=== PATIENT | female | born 1970 | race Caucasian/White ===

== ENCOUNTER 2018-06-16 16:36 | Emergency (ER) | payer BC, SELFPAY ==
[2018-06-16 16:48] VITALS: BP 146/87; PULSE 87; RESP 14; TEMP 36.8; O2SAT 100; BMI 22.0
--- NOTE | 2018-06-16 16:53 | DI.RAD.S_ITS ---
PROCEDURE: XR CHEST 2V INDICATIONS: palpitations TECHNIQUE: 2 views of the chest were acquired. COMPARISON: [facility], , CHEST 2 VIEW, 07/10/2014, 13:36. FINDINGS: Surgical changes and devices: None. Lungs and pleura: No pleural effusions or pneumothorax. Lungs are clear. Mediastinum: Mediastinal contours are normal. Heart size is normal. Bones and chest wall: No suspicious bony abnormalities. Soft tissues appear unremarkable. IMPRESSION: No acute cardiopulmonary findings. Dictated by: Tamiko Etienne M.D. on 06/16/2018 at 17:17 Approved by: Tamiko Etienne M.D. on 06/16/2018 at 17:17
[2018-06-16 17:18] LABS: INR 1.1 (0.9-1.3); Prothrombin Time 12.7 SECONDS (10.1-12.7)
[2018-06-16 17:19] LABS: Add Manual Diff / Slide Review NO; Basophils Percent Auto 0.9 % (0-2); Hematocrit 40.3 % (36-46); Hemoglobin 13.2 g/dL (12.0-16.0); Lymphocytes Percent Auto 23.4 % (25-40); Mean Corpuscular HGB Conc 32.7 % (30-36); Mean Corpuscular Volume 88.6 fL (80-100); Monocytes Percent Auto 7.3 % (3-14); Neutrophils Absolute Auto 5100 /uL (1500-7000); Neutrophils Percent Auto 65.4 % (50-75); Platelet Count 245 X10^3/uL (150-400); Red Blood Cell Count 4.55 X10^6/uL (4.0-5.2); Red Cell Distribution Width 14.3 % (11.6-14.8); White Blood Cell Count 7.8 X10^3/uL (4.5-11.0)
[2018-06-16 17:24] LABS: Blood Urea Nitrogen 14 mg/dL (7-17); Calcium 9.8 mg/dL (8.4-10.2); Carbon Dioxide 23 mmol/L (22-32); Chloride 107 mmol/L (98-107); Creatine Kinase 50 U/L (30-135); Estimated Glomerular Filt Rate > 60.0 mL/min (>60); Glucose 111 mg/dL (70-100); HEMOLYSIS < 15 (0-50); Potassium 3.6 mmol/L (3.4-5.1); Sodium 141 mmol/L (137-145)
[2018-06-16 17:36] LABS: Troponin I < 0.012 ng/mL (0.01-0.034)
[2018-06-16 18:37] VITALS: BP 117/70; PULSE 70; RESP 14
--- NOTE | 2018-06-16 18:52 | ED_ITS ---
HPI - Arrhythmia/Palpitations General Chief Complaint: Arrhythmia/Palpitations Stated Complaint: states heart palpitations,feels different Time Seen by Provider: 06/16/18 18:32 Source: patient and family Mode of arrival: ambulatory Limitations: no limitations History of Present Illness HPI narrative: Patient states she had an episode of palpitations that lasted for a couple of hours. She states she has had this before, but that this time, she had an episode in the midst of the palpitations where she felt that her heart was pounding and beating too she felt lightheaded. Patient states, however, that when she laid down it made her feel worse, so she stayed up. Patient did not lose consciousness. She was when the episode. Patient states she was waiting for to come when he he brought to the. Patient states that the palpitations stopped when she got to the emergency department. Patient has a history of PV days previously, and has seen her primary care physician for this. She states she was told that if she ever had a feeling of ongoing tachycardia, she should come to the emergency department immediately, and that is why she is here. Patient denies chest pain or shortness of breath at the time. She states she felt slightly nauseated. Patient states she is otherwise healthy; she does not have any thyroid issues, and does not have any known cardiac issues. She did have an episode of chest pain while a bookstore a few weeks ago, which lasted for some minutes, then resolved. This pain was right-sided. Patient has never worn a Holter monitor. She states she has had extended episodes of palpitations before, and has noticed her heart racing before, but these episodes are fairly few and far between, usually happening 6- 12 months apart. Patient states that she happens to have been in a position of leaning over or being ?curled up? when the each of the episodes have happened, but that there are plenty of other times that she is in this position and she does not experience any palpitations. Patient denies any complaints at this time, other than feeling somewhat tired, and states that she is otherwise feeling well. Related Data Home Medications Medication Instructions Recorded Confirmed No Known Home Medications 06/16/18 06/16/18 Allergies Allergy/AdvReac Type Severity Reaction Status Date / Time Penicillins Allergy Intermediate Hives Verified 06/16/18 16:52 Review of Systems Constitutional Denies chills, Denies fever(s), Denies lethargy and Denies weakness Eyes Denies change in vision, Denies eye discharge, Denies irritation and Denies loss of vision ENT Ears, Nose, Mouth, and Throat: Denies change in voice, Reports dizziness, Denies neck pain and Denies sore throat Cardiovascular Denies chest pain, Denies irregular heart rhythm, Denies lightheadedness, Reports palpitations, Denies dyspnea, Denies dyspnea on exertion and Denies orthopnea Respiratory Denies cough, Denies dyspnea, Denies dyspnea on exertion and Denies wheezing Gastrointestinal Gastrointestinal: Denies abdominal pain, Denies change in bowel habits, Denies diarrhea, Denies nausea and Denies vomiting Genitourinary Denies hematuria, Denies flank pain, Denies urinary incontinence and Denies urinary urgency Musculoskeletal Denies neck pain Integumentary/Breasts Denies pruritus, Denies erythema, Denies rash and Denies wounds Neurologic Denies confusion, Reports dizziness, Denies loss of vision and Denies weakness Psychiatric Denies anxiety, Denies confusion, Denies depression, Denies homicidal ideation and Denies suicidal ideation Endocrine Reports palpitations Hematologic/Lymphatic Denies easy bruising Allergic/Immunologic Denies wheezing PFSH Medical History PAC (premature atrial contraction) (Acute) PVC's (premature ventricular contractions) (Acute) Surgical History Status post arthroscopy Status post delivery Status post delivery Status post delivery Status post tubal ligation Family History Father Age: 78 Hypertension Polycystic kidney disease Grandmother Cancer Mother Age: 75 Skin melanoma Stroke Social History Smoking Status: Former smoker Exam Initial Vital Signs Initial Vital Signs: Vital Signs Temperature 98.2 F 06/16/18 16:48 Pulse Rate 87 06/16/18 16:48 Respiratory Rate 14 06/16/18 16:48 Blood Pressure 146/87 H 06/16/18 16:48 Pulse Oximetry 100 06/16/18 16:48 Const General: cooperative and well developed Nutritional Appearance: well nourished Orientation: alert, awake, oriented x3 and not confused HENNJ Head: normocephalic and atraumatic Ears: external ears normal Nose: external nose normal and No nasal discharge Face and sinus: face symmetric and No dry mucous membranes Mouth: oral mucosae normal and moist mucous membranes Teeth and gingiva: dentition normal Eyes General: appearance normal, both eyes and all related structures Eyelids: eyelids normal Conjunctivae: conjunctivae normal Sclera: sclerae normal Pupils: PERRL EOM: EOM intact bilaterally Neck Neck: normal visual inspection, trachea midline, No lymphadenopathy, No midline deformity and No JVD Lymphatic: No lymphedema Chest Chest: normal inspection of the chest Resp Effort & Inspection: normal respiratory effort, able to speak in complete sentences, no respiratory distress and no use of accessory muscles Auscultation: clear to auscultation bilaterally, no rales, no rhonchi and no wheezes Cardio Rate: regular rate Rhythm: regular rhythm Heart Sounds: no click, no gallops, no murmurs and no rubs Pulses: normal peripheral pulses GI Inspection: non-distended Palpation: soft, no hepatosplenomegaly, No guarding, No pulsatile mass and No tender Back/Spine/Pelvis Back: No CVA tenderness Cervical Spine: cervical ROM normal and No pain with cervical ROM Thoracic/Lumbar Spine: thoracic and lumbar spine normal to inspection Skin General: no rashes or lesions noted, No jaundice and No petechiae Neuro General: alert, oriented x3, gait normal and no focal motor deficits Speech: speech normal Extrem General: full ROM, no clubbing, cyanosis or edema, no pedal edema and no calf tenderness Psych Appearance: well kempt Mental Status: mental status grossly normal Attitude: cooperative Thought Content: normal and suicidality Judgment: judgment good Course Course Narrative: Patient was evaluated with an EKG, which was unremarkable, and was kept on the photographic enlarger operator, which showed a normal sinus rhythm with very occasional PVCs. Laboratory studies were also performed, including CMP and CBC, and these were also unremarkable. I discussed with the patient and her at length, the potential causes of the patient's symptoms, as well as when to be concerned and come to back to the emergency department, and patient' s need for follow-up, Holter monitoring, and possibly cardiology consult as an outpatient. They did express understanding. I have advised the patient that if she should have an episode again where she feels lightheaded, or certainly if she should lose consciousness, she should be brought back to the Emergency Department without delay. If she is driving and she has an episode of palpitations/tachycardia where she begins to feel lightheaded or dizzy, I have advised her immediately to sheeting puller and call 911. At this point in time, patient is stable, and has been in a normal sinus rhythm with a normal blood pressure throughout her stay in the emergency department. Given that these episodes are quite infrequent for her, I do not feel that admission to the hospital well be likely to provide any benefit at this time. However, patient begins to have more frequent episodes, she will most definitely need to be monitored either in the inpatient or outpatient setting. Orders Ordered: ED Orders 06/16/18 16:53 XR chest 2V Stat EKG-12 Lead Stat 06/16/18 17:04 Basic Metabolic Panel Stat Complete Blood Count AUTO DIFF Stat Prothrombin Time INR Stat Troponin & CK Cardiac Panel Stat Vital Signs - 8 hr 06/16/18 16:48 06/16/18 18:37 Temperature 98.2 F Pulse Rate 87 70 Respiratory Rate 14 14 Blood Pressure 146/87 H Blood Pressure [Left Arm] 117/70 Pulse Oximetry 100 MDM - Arrhythmia/Palpitations Medical Records Attestation: I reviewed the patient's medical records. Lab Data Attestation: I reviewed the patient's lab results. Result diagrams: 06/16/18 17:04 06/16/18 17:04 Lab Results 06/16/18 06/16/18 06/16/18 Range/Units 17:04 17:04 17:04 WBC 7.8 (4.5-11.0) X10^3/uL RBC 4.55 (4.0-5.2) X10^6/uL Hgb 13.2 (12.0-16.0) g/dL Hct 40.3 (36-46) % MCV 88.6 (80-100) fL MCH 29.0 (26-34) PG MCHC 32.7 (30-36) % RDW 14.3 (11.6-14.8) % Plt Count 245 (150-400) X10^3/uL Neut % (Auto) 65.4 (50-75) % Lymph % (Auto) 23.4 L (25-40) % [place] % (Auto) 7.3 (3-14) % Eos % (Auto) 3.0 (2-4) % Baso % (Auto) 0.9 (0-2) % Neut # (Auto) 5100 (8261-2850) /uL PT 12.7 (10.1-12.7) SECONDS INR 1.1 (0.9-1.3) Sodium 141 (137-145) mmol/L Potassium 3.6 (3.4-5.1) mmol/L Chloride 107 (98-107) mmol/L Carbon Dioxide 23 (22-32) mmol/L BUN 14 (7-17) mg/dL Creatinine 0.70 (0.52-1.04) mg/dL Estimated GFR > 60.0 (>60) mL/min BUN/Creatinine Ratio 20.0 (6-22) Glucose 111 H (70-100) mg/dL Calcium 9.8 (8.4-10.2) mg/dL Total Creatine Kinase 50 (30-135) U/L CK-MB (CK-2) TNP CK-MB (CK-2) Rel Index TNP Troponin I < 0.012 (0.01-0.034) ng/mL TSH (0.47-4.68) uIU/mL 06/16/18 Range/Units Unknown WBC (4.5-11.0) X10^3/uL RBC (4.0-5.2) X10^6/uL Hgb (12.0-16.0) g/dL Hct (36-46) % MCV (80-100) fL MCH (26-34) PG MCHC (30-36) % RDW (11.6-14.8) % Plt Count (150-400) X10^3/uL Neut % (Auto) (50-75) % Lymph % (Auto) (25-40) % [place] % (Auto) (3-14) % Eos % (Auto) (2-4) % Baso % (Auto) (0-2) % Neut # (Auto) (7410-4565) /uL PT (10.1-12.7) SECONDS INR (0.9-1.3) Sodium (137-145) mmol/L Potassium (3.4-5.1) mmol/L Chloride (98-107) mmol/L Carbon Dioxide (22-32) mmol/L BUN (7-17) mg/dL Creatinine (0.52-1.04) mg/dL Estimated GFR (>60) mL/min BUN/Creatinine Ratio (6-22) Glucose (70-100) mg/dL Calcium (8.4-10.2) mg/dL Total Creatine Kinase (30-135) U/L CK-MB (CK-2) CK-MB (CK-2) Rel Index Troponin I (0.01-0.034) ng/mL TSH 1.19 (0.47-4.68) uIU/mL Discharge Plan Departure Patient Disposition: Home Clinical Impression: Palpitations, Cardiac dysrhythmia Discharge Date/Time: 06/16/18 19:40 Interventions: ED Discharge Assessment Last Done: 06/16/18 19:35 Instructions: DI for Arrhythmias, DI for Palpitations Activity Restrictions/Additional Instructions: Your labs look good, as does your EKG. If this happens again and you are feeling lightheaded or you faint, you should come back to the emergency department immediately. If you have the symptoms while driving, please sheeting puller and call 911. Prescriptions: No Action No Known Home Medications RF: 0 Referrals: [facility] [Provider Group] Amanda Jimenez DO [Primary Care Provider] -
[2018-06-16 19:13] LABS: Thyroid Stimulating Hormone 1.19 uIU/mL (0.47-4.68)
[2018-06-16 19:35] VITALS: BP 112/63; PULSE 68; RESP 14; O2SAT 100
[2018-06-16 19:38] VITALS: BP 112/63; PULSE 67; RESP 15; O2SAT 100
== END 2018-06-16 19:40 | disposition home or self-care (01) ==
PROVIDERS: Emergency Medicine; Emergency Provider Emergency Medicine; PCP Family Medicine
DX: R00.2 Palpitations (principal); I49.9 Cardiac arrhythmia, unspecified
CPT/HCPCS: 36415; 71046; 80048; 82550; 84443; 84484; 85025; 85610; 93005; 99282; 99285

== ENCOUNTER → 2019-03-15 09:39 | Outpatient (CLI) | payer BC, SELFPAY ==
[2019-03-15 10:47] LABS: Add Manual Diff / Slide Review NO; Basophils Absolute Auto 100 /uL (0-100); Eosinophils Absolute Auto 300 /uL (0-450); Eosinophils Percent Auto 3.8 % (2-4); Hematocrit 35.9 % (36-46); Hemoglobin 11.6 g/dL (12.0-16.0); Lymphocytes Absolute Auto 1300 /uL (1100-4500); Lymphocytes Percent Auto 19.9 % (25-40); Mean Corpuscular HGB Conc 32.3 % (30-36); Mean Corpuscular Hemoglobin 27.1 PG (26-34); Mean Corpuscular Volume 83.9 fL (80-100); Monocytes Absolute Auto 500 /uL (0-900); Monocytes Percent Auto 7.8 % (3-14); Neutrophils Absolute Auto 4500 /uL (1500-7000); Neutrophils Percent Auto 67.5 % (50-75); Platelet Count 266 X10^3/uL (150-400); Red Blood Cell Count 4.28 X10^6/uL (4.0-5.2); Red Cell Distribution Width 14.8 % (11.6-14.8); White Blood Cell Count 6.7 X10^3/uL (4.5-11.0)
[2019-03-15 11:14] LABS: HEMOLYSIS < 15 (0-50); Iron 68 ug/dL (37-170)
[2019-03-15 11:20] LABS: Alanine Aminotransferase 16 IU/L (9-52); Albumin 4.4 g/dL (3.5-5.0); Albumin Globulin Ratio 1.6 (1.0-2.8); Alkaline Phosphatase 51 U/L (38-126); Aspartate Aminotransferase 20 IU/L (14-36); BUN Creatinine Ratio 13.3 (6-22); Bilirubin Total 0.9 mg/dL (0.2-1.3); Blood Urea Nitrogen 8 mg/dL (7-17); Calcium 9.7 mg/dL (8.4-10.2); Carbon Dioxide 25 mmol/L (22-32); Chloride 103 mmol/L (98-107); Cholesterol 147 mg/dL (140-199); Estimated Glomerular Filt Rate > 60.0 mL/min (>60); Globulin 2.8 g/dL (1.7-4.1); Glucose 83 mg/dL (70-100); HDL Cholesterol 64 mg/dL (40-60); HEMOLYSIS < 15 (0-50); LDL Cholesterol Calculated 75 mg/dL (<100); Potassium 4.6 mmol/L (3.4-5.1); Sodium 138 mmol/L (137-145); Total Protein 7.2 g/dL (6.3-8.2); Triglycerides 41 mg/dL (35-150)
[2019-03-15 11:25] LABS: Percent Iron Saturation 18 % (15-50); Total Iron Binding Capacity 388 ug/dL (265-497); Transferrin 312 mg/dL (206-381)
[2019-03-15 11:49] LABS: Ferritin 6.3 ng/mL (6.27-137)
== END ==
PROVIDERS: PCP Family Medicine; Visit Provider Family Medicine
DX: K76.89 Other specified diseases of liver (principal); Z13.1 Encounter for screening for diabetes mellitus; Z13.220 Encounter for screening for lipoid disorders; Z86.2 Personal history of diseases of the blood and blood-forming organs and certain disorders involving the immune mechanism
CPT/HCPCS: 36415; 80053; 80061; 82728; 83540; 83550; 85025

== ENCOUNTER → 2019-03-17 08:25 | Outpatient (CLI) | payer BC, SELFPAY ==
--- NOTE | 2019-03-17 | DI.MG.S_ITS ---
BILATERAL DIGITAL SCREENING MAMMOGRAM 3D/2D WITH CAD: 03/17/2019 CLINICAL: Routine screening. Comparison is made to exams dated: 04/04/2016 mammogram, 11/16/2013 mammogram, and 10/27/2013 mammogram - [facility]. The tissue of both breasts is extremely dense, which lowers the sensitivity of mammography. Current study was also evaluated with a Computer Aided Detection (CAD) system. No significant masses, calcifications, or other findings are seen in either breast. There has been no significant interval change. IMPRESSION: NEGATIVE There is no mammographic evidence of malignancy. A 1 year screening mammogram is recommended. This exam was interpreted at Station ID: [id number]. NOTE: For mammograms, a report in lay terms will be sent to the patient. Approximately 15% of breast malignancies will not be visualized mammographically. In the management of a palpable breast mass, a negative mammogram must not discourage biopsy of a clinically suspicious lesion. Electronically Signed By: Kulwinder garza/karon:03/17/2019 09:30:40 letter sent: Normal Exam ACR BI-RADS Category 1: Negative [id number]
== END ==
PROVIDERS: PCP Family Medicine; Visit Provider Family Medicine
DX: Z12.31 Encounter for screening mammogram for malignant neoplasm of breast (principal)
CPT/HCPCS: 77063; 77067

== ENCOUNTER → 2019-03-17 08:55 | Outpatient (CLI) | payer BC, SELFPAY ==
--- NOTE | 2019-04-08 16:02 | PM.CARDMON.1 ---
Motorcycle Repairer Report Referral & Results Date Patient Seen: 03/17/19 Requesting provider: Amanda Jimenez Indication: PVCs Duration of monitoring (days): 13 Diary information: There were 20 patient diary entries and 33 patient triggered events These events were all associated with sinus rhythm, PVCs, PACs, ventricular tachycardia, supraventricular tachycardia, and ectopic atrial rhythms Data: Minimum heart rate identified was 44 beats per minute at 05:48 on 03/23/2019 Maximum sinus heart rate was 162 beats per minute at 11:57 on 03/27/2019 Maximum overall heart rate was 171 beats per minute at 14:17 on 03/17/2019 during a 4 beat run of SVT Less than 1% of identified beats rather ventricular supraventricular ectopic in origin. 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 Indication for the study was ventricular premature beats, but in reality patient had very rare PVCs and no runs or other significant findings Clinical correlation suggested
== END ==
PROVIDERS: PCP Family Medicine; Visit Provider Family Medicine
DX: I49.3 Ventricular premature depolarization (principal)
CPT/HCPCS: 0296T; 0298T

== ENCOUNTER → 2019-05-26 13:27 | Outpatient (CLI) | payer BC, SELFPAY ==
[2019-05-26 13:43] LABS: Add Manual Diff / Slide Review NO; Basophils Absolute Auto 100 /uL (0-100); Basophils Percent Auto 0.7 % (0-2); Eosinophils Absolute Auto 200 /uL (0-450); Eosinophils Percent Auto 1.9 % (2-4); Hematocrit 37.8 % (36-46); Hemoglobin 12.4 g/dL (12.0-16.0); Lymphocytes Absolute Auto 1600 /uL (1100-4500); Lymphocytes Percent Auto 17.6 % (25-40); Mean Corpuscular HGB Conc 32.8 % (30-36); Mean Corpuscular Hemoglobin 28.9 PG (26-34); Mean Corpuscular Volume 87.9 fL (80-100); Monocytes Absolute Auto 500 /uL (0-900); Monocytes Percent Auto 5.5 % (3-14); Neutrophils Absolute Auto 6600 /uL (1500-7000); Neutrophils Percent Auto 74.3 % (50-75); Platelet Count 242 X10^3/uL (150-400); White Blood Cell Count 8.9 X10^3/uL (4.5-11.0)
[2019-05-26 14:29] LABS: Ferritin 12.2 ng/mL (6.27-137)
[2019-05-26 14:37] LABS: HEMOLYSIS < 15 (0-50); Iron 140 ug/dL (37-170)
[2019-05-26 14:48] LABS: Percent Iron Saturation 45 % (15-50); Total Iron Binding Capacity 313 ug/dL (265-497); Transferrin 251 mg/dL (206-381)
== END ==
PROVIDERS: PCP Family Medicine; Visit Provider Family Medicine
DX: Z86.2 Personal history of diseases of the blood and blood-forming organs and certain disorders involving the immune mechanism (principal)
CPT/HCPCS: 36415; 82728; 83540; 83550; 85025

== ENCOUNTER → 2019-06-21 08:04 | Outpatient (CLI) | payer BC, SELFPAY ==
--- NOTE | 2019-06-21 08:05 | DI.ECHO.S_ITS ---
[facility]---------+ [facility] +---------+ : : [address] : : : : [id number] : : : : Phone: [phone] Echocardiogram Report + + :Name: SAQIB BRAY Study Date: 06/21/2019 Height: 68 in : :[facility] Weight: 150 lb : : Gender: Female BSA: 1.8 m2 : :: 1970 Age: 49 yrs BP: 122/82 mmHg: :Reason For Study: Arrhythmia : :Ordering Physician: Raymond : :Tony Performed By: Jose Antonio Reed : :Referring: RAYMOND MARMOLEJO : + + Interpretation Summary The ejection fraction is estimated to be 60-65%. There is a small pericardial effusion noted. The IVC is dilated (diameter is greater than 2.1 cm) yet it collapses greater than 50% with a sniff. This suggests a right atrial pressure of 8 mm Hg. There is no significant valvular heart disease. Procedure: A two-dimensional transthoracic echocardiogram with color flow and Doppler was performed. The study quality was technically adequate. The apical views were difficult to obtain and are suboptimal in quality. There is no prior echocardiogram noted for this patient. The patient was in normal sinus rhythm during the exam. Left Ventricle: The left ventricle is normal in size. There is normal left ventricular wall thickness. Left ventricular systolic function is normal. The ejection fraction is estimated to be 60-65%. Left ventricular wall motion is normal. Right Ventricle: The right ventricle is normal in size and function. Atria: The left atrial size is normal. Right atrial size is normal. The interatrial septum is intact with no evidence for an atrial septal defect. Mitral Valve: The mitral valve is normal in structure and function. There is trace mitral regurgitation. Aortic Valve: The aortic valve is trileaflet. The aortic valve opens well. No aortic regurgitation is present. Tricuspid Valve: The tricuspid valve is normal in structure and function. There is trace tricuspid regurgitation. Pulmonary artery pressures cannot be estimated because of the lack of a measurable TR jet velocity. Pulmonic Valve: The pulmonic valve is normal in structure and function. There is trace pulmonic regurgitation. Great Vessels: The aortic root is normal size. The ascending aorta could not be visualized. The pulmonary artery is normal size. The IVC is dilated (diameter is greater than 2.1 cm) yet it collapses greater than 50% with a sniff. This suggests a right atrial pressure of 8 mm Hg. Pericardium/ Pleura There is a small pericardial effusion noted. There are no echocardiographic or Doppler indications for cardiac tamponade. There is no pleural effusion. MMode/2D Measurements & Calculations LVIDd: 5.0 cm LVOT diam: 2.1 cm LVIDs: 3.0 cm Ao root diam: 2.9 cm FS: 39.8 % EPSS: 0.30 cm IVSd: 0.76 cm LVPWd: 0.85 cm LV arreguin. diameter/BSA (cm/m^2): 2.8 LV sys. diameter/BSA (cm/m^2): 1.7 TAPSE: 2.0 cm Doppler Measurements & Calculations Ao V2 max: 108.3 cm/sec LVOT Max Memo: 100.4 cm/sec Ao V2 mean: 70.0 cm/sec LV V1 max P.0 mmHg Ao max P.7 mmHg LV V1 VTI: 22.2 cm Ao mean P.4 mmHg SARA(I,D): 3.2 cm2 Ao V2 VTI: 22.9 cm SARA(V,D): 3.1 cm2 sev ratio: 0.97 SARA indexed to BSA (cm^2/m^2): 1.8 MV E max memo: 66.6 cm/sec PA V2 max: 91.9 cm/sec MV A max memo: 53.4 cm/sec PA V2 mean: 62.0 cm/sec MV E/A: 1.2 PA mean P.8 mmHg Med Peak E' Memo: 10.5 cm/sec PA Accel Time: 0.17 sec E/E' med: 6.3 Lat Peak E' Memo: 8.2 cm/sec E/E' lat: 8.1 E/e' average: 7.2 MV dec time: 0.29 sec SV(LVOT): 74.3 ml Reading Physician:04:25 PM
== END ==
PROVIDERS: PCP Family Medicine; Visit Provider Family Medicine
DX: I49.9 Cardiac arrhythmia, unspecified (principal); I49.3 Ventricular premature depolarization; I49.1 Atrial premature depolarization; I31.3 Pericardial effusion (noninflammatory); I47.1 Supraventricular tachycardia
CPT/HCPCS: 93306

== ENCOUNTER → 2019-11-21 15:51 | Outpatient (CLI) | payer BC, SELFPAY ==
[2019-11-21 16:15] LABS: Add Manual Diff / Slide Review NO; Basophils Absolute Auto 100 /uL (0-100); Eosinophils Absolute Auto 200 /uL (0-450); Eosinophils Percent Auto 2.6 % (2-4); Hematocrit 39.5 % (36-46); Hemoglobin 13.6 g/dL (12.0-16.0); Lymphocytes Absolute Auto 2000 /uL (1100-4500); Lymphocytes Percent Auto 28.3 % (25-40); Mean Corpuscular HGB Conc 34.4 % (30-36); Mean Corpuscular Hemoglobin 32.2 PG (26-34); Mean Corpuscular Volume 93.6 fL (80-100); Monocytes Absolute Auto 400 /uL (0-900); Monocytes Percent Auto 5.5 % (3-14); Neutrophils Absolute Auto 4500 /uL (1500-7000); Neutrophils Percent Auto 62.6 % (50-75); Platelet Count 266 X10^3/uL (150-400); Red Blood Cell Count 4.22 X10^6/uL (4.0-5.2); Red Cell Distribution Width 13.3 % (11.6-14.8); White Blood Cell Count 7.2 X10^3/uL (4.5-11.0)
[2019-11-21 17:34] LABS: Ferritin 26 ng/mL (6-137)
== END ==
PROVIDERS: PCP Family Medicine; Referring Provider Family Medicine; Visit Provider Family Medicine
DX: Z86.2 Personal history of diseases of the blood and blood-forming organs and certain disorders involving the immune mechanism (principal); D50.0 Iron deficiency anemia secondary to blood loss (chronic)
CPT/HCPCS: 36415; 82728; 85025

== ENCOUNTER → 2020-02-14 09:43 | Outpatient (CLI) | payer BC, SELFPAY ==
--- NOTE | 2020-02-14 09:44 | DI.CT.S_ITS ---
PROCEDURE: CT ABDOMEN WO/W CON INDICATIONS: liver cysts TECHNIQUE: 4 phase scanning was performed. Non-contrast 5 mm axial sections acquired from the diaphragm to the iliac crests. Following the administration of intravenous contrast, 5 mm thick arterial-phase, portal venous-phase, and 5-minute delayed phase images were acquired through the liver. 5 mm thick coronal and sagittal reformats were performed. For radiation dose reduction, the following was used: automated exposure control, adjustment of mA and/or kV according to patient size. COMPARISON: [facility], CT, ABDOMEN WITHOUT CONTRAST, 09/12/2009, 13:28. [facility], [place], ABDOMEN LIMITED, 04/16/2016, 9:57. FINDINGS: Image quality: Excellent. Lung bases: Lung bases are clear. Heart size is normal. Liver: Liver demonstrates homogeneous parenchymal enhancement. Redemonstration of numerous variably sized nonenhancing intrahepatic lesions without suspicious solid components. These have been relatively stable over the years. No development of internal solid components or other suspicious features. Other solid organs: Gallbladder is unremarkable. Biliary system is non dilated. Pancreas is normal in morphology. Spleen is normal in size and enhancement. No adrenal nodules. Right kidney contains a tiny 1 mm punctate non-obstructing stone. Both kidneys demonstrate normal size and enhancement, without hydronephrosis. No left-sided nephroliths. No perinephric stranding. Nodes and vessels: No retroperitoneal or mesenteric adenopathy by size criteria. Aorta and inferior vena cava are normal in size. Bowel and peritoneum: Unenhanced bowel loops are normal in caliber. No free fluid or air. Bones: No suspicious bony lesions. No vertebral body compression fractures. Miscellaneous: There is a fat-containing umbilical hernia without acute inflammation. IMPRESSION: Numerous hepatic cysts which appear relatively stable over the years without development of any suspicious features. Otherwise, CT abdomen without acute abnormalities. Dictated by: Evens Hodge M.D. on 02/14/2020 at 13:40 Approved by: Evens Hodge M.D. on 02/14/2020 at 13:56
== END ==
PROVIDERS: PCP Family Medicine; Referring Provider Family Medicine; Visit Provider Family Medicine
DX: K76.89 Other specified diseases of liver (principal); K42.9 Umbilical hernia without obstruction or gangrene; Z82.71 Family history of polycystic kidney
CPT/HCPCS: 74170; Q9967

== ENCOUNTER → 2020-04-17 14:32 | Outpatient (CLI) | payer BC, SELFPAY | PROVIDERS: PCP Family Medicine; Visit Provider Registered Nurse | DX: N39.0 Urinary tract infection, site not specified (principal) | CPT/HCPCS: 87086 ==

== ENCOUNTER 2021-04-17 14:04 | Emergency (ER) | payer BC, SELFPAY ==
[2021-04-17] VITALS (23 sets, daily range): BP systolic 100–141; BP diastolic 55–82; PULSE 62–156; RESP 12–24; TEMP 36.7; O2SAT 97–100; BMI 22.8
--- NOTE | 2021-04-17 14:22 | DI.RAD.S_ITS ---
PROCEDURE: XR CHEST 1V INDICATIONS: chest pain TECHNIQUE: One view of the chest was acquired. COMPARISON: [facility], CR, XR CHEST 2V, 06/16/2018, 16:59. FINDINGS: Surgical changes and devices: None. Lungs and pleura: Lungs are clear. No pleural effusions or pneumothorax. Mediastinum: Mediastinal contours appear normal. Heart size is normal. Bones and chest wall: No suspicious bony lesions. Overlying soft tissues appear unremarkable. IMPRESSION: No evidence acute pulmonary process. Dictated by: Jerald Alamo M.D. on 04/17/2021 at 14:52 Approved by: Jerald Alamo M.D. on 04/17/2021 at 14:52
[2021-04-17 14:30] LABS: Add Manual Diff / Slide Review NO; Basophils Absolute Auto 100 /uL (0-100); Basophils Percent Auto 0.8 % (0-2); Eosinophils Absolute Auto 200 /uL (0-450); Eosinophils Percent Auto 1.8 % (2-4); Hematocrit 43.9 % (36-46); Hemoglobin 14.6 g/dL (12.0-16.0); Lymphocytes Absolute Auto 2500 /uL (1100-4500); Lymphocytes Percent Auto 26.6 % (25-40); Mean Corpuscular HGB Conc 33.2 % (30-36); Mean Corpuscular Hemoglobin 30.7 PG (26-34); Mean Corpuscular Volume 92.6 fL (80-100); Monocytes Absolute Auto 700 /uL (0-900); Monocytes Percent Auto 7.6 % (3-14); Neutrophils Absolute Auto 5900 /uL (1500-7000); Neutrophils Percent Auto 63.2 % (50-75); Platelet Count 319 X10^3/uL (150-400); Red Blood Cell Count 4.74 X10^6/uL (4.0-5.2); Red Cell Distribution Width 13.6 % (11.6-14.8); White Blood Cell Count 9.4 X10^3/uL (4.5-11.0)
--- NOTE | 2021-04-17 14:31 | ED_ITS ---
HPI - Arrhythmia/Palpitations General Chief Complaint: Arrhythmia/Palpitations Stated Complaint: funny heartbeat- poss AFIB Time Seen by Provider: 04/17/21 14:15 Source: patient Mode of arrival: Ambulatory Limitations: no limitations History of Present Illness HPI narrative: Patient is a 50-year-old female with history of paroxysmal heart arrhythmia she is unsure what it is but is currently in AFib with RVR. She says her last episode was 3 years ago it has never been caught on the monitor. She has always got herself out of it. This started this morning. She tried coughing bearing down to get herself out of it but it is not working. Heart rate currently in the 150s. Denies chest pain dizziness shortness of breath or other symptoms Related Data Home Medications Medication Instructions Recorded Confirmed ascorbate calcium (vitamin C) 500 500 mg PO DAILY 11/21/19 04/23/20 mg tablet ferrous sulfate 140 mg (45 mg 140 mg PO DAILY 04/17/20 04/23/20 iron) tablet,extended release (Slow Release Iron) Previous Rx's Medication Instructions Recorded triamcinolone acetonide 0.5 % See Rx Instructions .ROUTE 04/07/20 topical cream .COMPLEX #45 gram Allergies Allergy/AdvReac Type Severity Reaction Status Date / Time Penicillins Allergy Intermediate Hives Verified 04/17/21 15:31 Review of Systems Review of Systems Narrative: GENERAL: Denies chills, fatigue, malaise, fever, sweats, travel HEENT: Denies sinus pain, ear pain, sore throat, difficulty swallowing, neck pain RESPIRATORY: Denies dyspnea, cough, wheezing, hemoptysis, sputum. CARDIOVASCULAR: See HPI GASTROINTESTINAL: Denies nausea, vomiting, abdominal pain, diarrhea, constipation, melena. : Denies dysuria, frequency, incontinence, hematuria, urinary retention, flank pain. MUSCULOSKELETAL: Denies weakness, joint pain, or bony pain SKIN: No rash, no erythema, no pruritus NEUROLOGIC: Denies weakness, dizziness, headache, numbness, change in speech, confusion PSYCHIATRIC: No concerning psychosocial issues. 12 point review of systems is negative except for those stated above and HPI Patient History Medical History (Updated 04/17/21 @ 17:12 by Michelle Hawkins DO) PAC (premature atrial contraction) Pericardial effusion PVC's (premature ventricular contractions) Surgical History Status post arthroscopy Status post delivery Status post delivery Status post delivery Status post tubal ligation Family History Father Age: 81 Hypertension Polycystic kidney disease Grandmother Cancer Mother Age: 78 Skin melanoma Stroke Social History Smoking Status: Former smoker Smoking Status: Former smoker alcohol intake frequency: 0-2 drinks per day Substance Use Type: does not use Exam Initial Vital Signs Initial Vital Signs: Vital Signs Temperature 98.1 F 04/17/21 14:20 Pulse Rate 150 H 04/17/21 14:20 Respiratory Rate 16 04/17/21 14:20 Blood Pressure 141/77 H 04/17/21 14:20 Pulse Oximetry 99 04/17/21 14:20 GENERAL: Alert pleasant 50-year-old female HEENT: Head atraumatic,EOMI, pupils reactive, face symmetric, moist mucous membranes CARDIOVASCULAR: Irregularly irregular tachycardic RESPIRATORY: Breath sounds equal bilaterally, no wheezes rales or rhonchi. ABDOMEN: Soft, nontender. Normoactive bowel sounds all 4 quadrants. No guarding or rebound. EXTREMITIES: Normal range of motion, no clubbing or edema. Neurovascularly intact NEUROLOGICAL: Alert and oriented x4.Normal gait and speech. SKIN: Warm, dry, no laceration, no petechiae, no rashes or lesions. Procedures Cardioversion Indication: Atrial fibrillation with RVR Stability: Stable Number of attempts (shocks): 1 Joules used: 120 Cardiac rhythm post-cardioversion: NSR Procedural Sedation Consent signed: Yes Time out performed: Yes Indication: cardioversion ASA Class: I Mallampati Airway Classification: Class I IV Propofol dose (mg): 70 Intraservice time/total sedation time (min): 11 ED Sedation Level: Moderate (Concious) Patient Tolerated Procedure: Well Complications: none Scores CHADS-VASc Congestive heart failure: no Hypertension: no Age 75 years or older: no Diabetes mellitus: no Stroke, TIA, or TE: no Vascular disease: no Age 65 to 74 years: no Sex category (female): Female CHADS-VASc Score: 1 Course Orders Ordered: Discontinued Medications Diltiazem HCl (Diltiazem 5 Mg/Ml Sdv) 10 mg IV NOW ONE Stop: 04/17/21 14:28 Last Admin: 04/17/21 14:33 Dose: 10 mg Documented by: FRANSISCO Propofol (Propofol 200 Mg/20 Ml Vial) 70 mg 1 mg/kg (70 mg) IV NOW ONE Stop: 04/17/21 15:41 Last Admin: 04/17/21 16:13 Dose: 70 mg Documented by: FRANSISCO Vital Signs Vital signs: Vital Signs - 8 hr 04/17/21 14:20 04/17/21 14:33 04/17/21 14:43 Temperature 98.1 F Pulse Rate 150 H 148 H 122 H Respiratory Rate 16 24 Blood Pressure 141/77 H 123/63 Pulse Oximetry 99 100 04/17/21 14:51 04/17/21 15:00 04/17/21 15:01 Temperature Pulse Rate 116 H 131 H 131 H Respiratory Rate 19 14 18 Blood Pressure 110/82 132/68 Pulse Oximetry 99 100 99 04/17/21 15:10 04/17/21 15:21 04/17/21 15:30 Temperature Pulse Rate 139 H 140 H 138 H Respiratory Rate 13 23 13 Blood Pressure 140/59 L 120/71 122/62 Pulse Oximetry 99 98 99 04/17/21 15:41 04/17/21 15:50 04/17/21 16:00 Temperature Pulse Rate 145 H 145 H 156 H Respiratory Rate 18 13 22 Blood Pressure 128/64 110/63 105/68 Pulse Oximetry 99 100 98 04/17/21 16:11 04/17/21 16:13 04/17/21 16:15 Temperature Pulse Rate 147 H 148 H 81 Respiratory Rate 24 21 24 Blood Pressure 126/60 126/63 104/55 L Pulse Oximetry 100 100 97 04/17/21 16:20 04/17/21 16:25 04/17/21 16:30 Temperature Pulse Rate 81 77 73 Respiratory Rate 12 24 24 Blood Pressure 100/57 L 102/58 L 104/62 Pulse Oximetry 98 97 98 04/17/21 16:35 04/17/21 16:39 04/17/21 16:45 Temperature Pulse Rate 80 81 79 Respiratory Rate 19 16 20 Blood Pressure 112/65 121/66 Pulse Oximetry 98 100 MDM - Arrhythmia/Palpitations Lab Data Result diagrams: 04/17/21 14:22 04/17/21 14:22 Labs: Lab Results 04/17/21 04/17/21 04/17/21 Range/Units 14:22 14:22 14:22 WBC 9.4 (4.5-11.0) X10^3/uL RBC 4.74 (4.0-5.2) X10^6/uL Hgb 14.6 (12.0-16.0) g/dL Hct 43.9 (36-46) % MCV 92.6 (80-100) fL MCH 30.7 (26-34) PG MCHC 33.2 (30-36) % RDW 13.6 (11.6-14.8) % Plt Count 319 (150-400) X10^3/uL Neut % (Auto) 63.2 (50-75) % Lymph % (Auto) 26.6 (25-40) % [place] % (Auto) 7.6 (3-14) % Eos % (Auto) 1.8 L (2-4) % Baso % (Auto) 0.8 (0-2) % Neut # (Auto) 5900 (6373-1856) /uL Lymph # (Auto) 2500 (4070-3983) /uL [place] # (Auto) 700 (0-900) /uL Eos # (Auto) 200 (0-450) /uL Baso # (Auto) 100 (0-100) /uL Sodium 142 (137-145) mmol/L Potassium 3.2 L (3.4-5.1) mmol/L Chloride 102 (98-107) mmol/L Carbon Dioxide 29 (22-32) mmol/L BUN 13 (7-17) mg/dL Creatinine 0.71 (0.52-1.04) mg/dL Estimated GFR > 60.0 (>60) mL/min BUN/Creatinine Ratio 18.3 (6-22) Glucose 91 (70-100) mg/dL Calcium 9.9 (8.4-10.2) mg/dL Total Bilirubin 0.5 (0.2-1.3) mg/dL AST 30 (14-36) IU/L ALT 19 (<35) IU/L Alkaline Phosphatase 71 (38-126) U/L Total Creatine Kinase 59 (30-135) U/L CK-MB (CK-2) TNP CK-MB (CK-2) Rel Index TNP Troponin I < 0.012 (0.01-0.034) ng/mL NT-Pro-B Natriuret Pep 130 H (<125) pg/mL Total Protein 8.1 (6.3-8.2) g/dL Albumin 5.0 (3.5-5.0) g/dL Globulin 3.1 (1.7-4.1) g/dL Albumin/Globulin Ratio 1.6 (1.0-2.8) Lipase 143 (23-300) U/L TSH (0.47-4.68) uIU/mL SARS-CoV-2 (PCR) (Negative) 04/17/21 04/17/21 Range/Units 14:22 15:16 WBC (4.5-11.0) X10^3/uL RBC (4.0-5.2) X10^6/uL Hgb (12.0-16.0) g/dL Hct (36-46) % MCV (80-100) fL MCH (26-34) PG MCHC (30-36) % RDW (11.6-14.8) % Plt Count (150-400) X10^3/uL Neut % (Auto) (50-75) % Lymph % (Auto) (25-40) % [place] % (Auto) (3-14) % Eos % (Auto) (2-4) % Baso % (Auto) (0-2) % Neut # (Auto) (4728-9361) /uL Lymph # (Auto) (3211-5089) /uL [place] # (Auto) (0-900) /uL Eos # (Auto) (0-450) /uL Baso # (Auto) (0-100) /uL Sodium (137-145) mmol/L Potassium (3.4-5.1) mmol/L Chloride (98-107) mmol/L Carbon Dioxide (22-32) mmol/L BUN (7-17) mg/dL Creatinine (0.52-1.04) mg/dL Estimated GFR (>60) mL/min BUN/Creatinine Ratio (6-22) Glucose (70-100) mg/dL Calcium (8.4-10.2) mg/dL Total Bilirubin (0.2-1.3) mg/dL AST (14-36) IU/L ALT (<35) IU/L Alkaline Phosphatase (38-126) U/L Total Creatine Kinase (30-135) U/L CK-MB (CK-2) CK-MB (CK-2) Rel Index Troponin I (0.01-0.034) ng/mL NT-Pro-B Natriuret Pep (<125) pg/mL Total Protein (6.3-8.2) g/dL Albumin (3.5-5.0) g/dL Globulin (1.7-4.1) g/dL Albumin/Globulin Ratio (1.0-2.8) Lipase (23-300) U/L TSH 1.39 (0.47-4.68) uIU/mL SARS-CoV-2 (PCR) Negative (Negative) Imaging Data Chest x-ray: Radiologist's Impresson: PROCEDURE:? XR CHEST 1V ? INDICATIONS:? chest pain ? TECHNIQUE:? One view of the chest was acquired.? ? COMPARISON:? [facility], , XR CHEST 2V, 06/16/2018, 16:59. ? FINDINGS:? ? Surgical changes and devices:? None.? ? Lungs and pleura:? Lungs are clear.? No pleural effusions or pneumothorax.? ? Mediastinum:? Mediastinal contours appear normal.? Heart size is normal.? ? Bones and chest wall:? No suspicious bony lesions.? Overlying soft tissues appear unremarkable.? ? IMPRESSION:? No evidence acute pulmonary process. ? ? ? Dictated by: Jerald Alamo M.D. on 04/17/2021 at 14:52 ? ? ECG Data Interpretation: Atrial fibrillation with RVR rate 139 EKG 2. Normal sinus rhythm rate 72 MO [address] changes or T-wave inversions MDM Narrative Medical decision making narrative: Patient is stable AFib with RVR good candidate for cardioversion. She easily cardioverted. She has a low chads Vasc 2 score discussed with her taking aspirin 81 mg daily. She has previously followed up with Cardiology. At this time are on she follow with cardiology. Discharge Plan Departure Patient Disposition: Home Clinical Impression: Atrial fibrillation with rapid ventricular response Instructions: Atrial Fibrillation Activity Restrictions/Additional Instructions: *You have been diagnosed with paroxysmal atrial fibrillation *What to do: At this time would avoid caffeine and alcohol for at least 24 hours *Continue to take medications as directed Aspirin 81mg daily *Follow up with your primary care provider in 2-3 days *Return to ER if you should have palpitations dizziness chest pain or lightheadedness,or any new, worsening or concerning symptoms Prescriptions: No Action triamcinolone acetonide 0.5 % cream See Rx Instructions .ROUTE .COMPLEX Qty: 45 RF: 0 ascorbate calcium (vitamin C) 500 mg tablet 500 mg PO DAILY RF: 0 ferrous sulfate [Slow Release Iron] 140 mg (45 mg iron) tablet extended release 140 mg PO DAILY RF: 0 Referrals: Amanda Jimenez DO [Primary Care Provider] -
[2021-04-17] MEDS: dilTIAZem 5 MG/ML SDV 10 MG IV (14:33)
[2021-04-17 14:44] LABS: Alanine Aminotransferase 19 IU/L (<35); Albumin Globulin Ratio 1.6 (1.0-2.8); Alkaline Phosphatase 71 U/L (38-126); Aspartate Aminotransferase 30 IU/L (14-36); BUN Creatinine Ratio 18.3 (6-22); Bilirubin Total 0.5 mg/dL (0.2-1.3); Blood Urea Nitrogen 13 mg/dL (7-17); Calcium 9.9 mg/dL (8.4-10.2); Carbon Dioxide 29 mmol/L (22-32); Chloride 102 mmol/L (98-107); Creatine Kinase 59 U/L (30-135); Estimated Glomerular Filt Rate > 60.0 mL/min (>60); Globulin 3.1 g/dL (1.7-4.1); Glucose 91 mg/dL (70-100); HEMOLYSIS < 15 (0-50); Lipase 143 U/L (23-300); Potassium 3.2 mmol/L (3.4-5.1); Sodium 142 mmol/L (137-145); Total Protein 8.1 g/dL (6.3-8.2)
[2021-04-17 14:53] LABS: NT-proBNP (BNP-Adult 18+) 130 pg/mL (<125)
[2021-04-17 14:55] LABS: Troponin I < 0.012 ng/mL (0.01-0.034)
[2021-04-17 15:36] LABS: COVID19 -Nasal RAPID Negative (Negative)
[2021-04-17] MEDS: propofoL 200 MG/20 ML VIAL 70 MG IV (16:13)
[2021-04-17 17:02] LABS: Thyroid Stimulating Hormone 1.39 uIU/mL (0.47-4.68)
== END 2021-04-17 17:25 | disposition home or self-care (01) ==
PROVIDERS: Emergency Provider Emergency Medicine; PCP Family Medicine
DX: I48.0 Paroxysmal atrial fibrillation (principal)
CPT/HCPCS: 36415; 71045; 80053; 82550; 83690; 83880; 84443; 84484; 85025; 87635; 92960; 93005; 93010; 96374; 96375; 99152; 99285; C9803; J2704

== ENCOUNTER → 2021-04-29 11:55 | Outpatient (CLI) | payer BC, SELFPAY ==
[2021-04-29 13:15] LABS: BUN Creatinine Ratio 19.4 (6-22); Blood Urea Nitrogen 14 mg/dL (7-17); Calcium 10.1 mg/dL (8.4-10.2); Carbon Dioxide 28 mmol/L (22-32); Chloride 103 mmol/L (98-107); Estimated Glomerular Filt Rate > 60.0 mL/min (>60); Glucose 87 mg/dL (70-100); HEMOLYSIS < 15 (0-50); Potassium 4.5 mmol/L (3.4-5.1); Sodium 139 mmol/L (137-145)
== END ==
PROVIDERS: PCP Family Medicine; Referring Provider Family Medicine; Visit Provider Family Medicine
DX: E87.6 Hypokalemia (principal); I48.91 Unspecified atrial fibrillation
CPT/HCPCS: 36415; 80048; 83735

== ENCOUNTER → 2021-05-13 17:06 | Outpatient (CLI) | payer BC, SELFPAY ==
--- NOTE | 2021-05-13 17:07 | DI.MRI.S_ITS ---
PROCEDURE: MR ANGIO HEAD WO CON INDICATIONS: headaches, f/h hemorrhagic stroke TECHNIQUE: Noncontrast axial 3-D [id number] MR angiogram, with 3-dimensional maximum intensity projection (MIP) reformats of the internal carotid arteries and posterior circulation then performed. COMPARISON: None. FINDINGS: Image quality: Excellent. Anterior circulation: Intracranial internal carotid arteries demonstrate normal size and intraluminal flow signal. The flow within the paired anterior cerebral arteries is normal and symmetric. The flow within the middle cerebral arteries is normal and symmetric. The anterior communicating artery is seen. No stenoses, occlusions, or aneurysms. Posterior circulation: Visualized portions of the vertebral arteries demonstrate normal caliber, and join to form a normal appearing basilar artery. The flow within the posterior cerebral arteries is normal and symmetric. No stenoses, occlusions, or aneurysms. IMPRESSION: No aneurysm is seen. Dictated by: Mir Alvarado M.D. on 05/13/2021 at 17:15 Approved by: Mir Alvarado M.D. on 05/13/2021 at 17:16
== END ==
PROVIDERS: PCP Family Medicine; Referring Provider Family Medicine; Visit Provider Family Medicine
DX: R51.9 Headache, unspecified (principal); I48.91 Unspecified atrial fibrillation; Z82.3 Family history of stroke
CPT/HCPCS: 70544

== ENCOUNTER → 2022-10-17 09:07 | Outpatient (CLI) | payer BC, SELFPAY ==
[2022-10-17 11:01] LABS: HEMOLYSIS < 15 (0-50); NT-proBNP (BNP-Adult 18+) 50 pg/mL (<125)
[2022-10-17 11:07] LABS: Alanine Aminotransferase 15 IU/L (<35); Albumin 4.5 g/dL (3.5-5.0); Albumin Globulin Ratio 1.6 (1.0-2.8); Alkaline Phosphatase 64 U/L (38-126); Aspartate Aminotransferase 22 IU/L (14-36); BUN Creatinine Ratio 10.3 (6-22); Bilirubin Total 0.7 mg/dL (0.2-1.3); Blood Urea Nitrogen 7 mg/dL (7-17); Calcium 9.8 mg/dL (8.4-10.2); Carbon Dioxide 27 mmol/L (22-32); Chloride 103 mmol/L (98-107); Estimated Glomerular Filt Rate > 60 mL/min (>60); Globulin 2.9 g/dL (1.7-4.1); Glucose 86 mg/dL (70-100); Sodium 139 mmol/L (137-145); Total Protein 7.4 g/dL (6.3-8.2)
[2022-10-17 11:27] LABS: Ferritin 51 ng/mL (11-264)
== END ==
PROVIDERS: PCP Family Medicine; Referring Provider Family Medicine; Visit Provider Family Medicine
DX: K76.89 Other specified diseases of liver (principal); Z82.3 Family history of stroke; Z86.2 Personal history of diseases of the blood and blood-forming organs and certain disorders involving the immune mechanism
CPT/HCPCS: 36415; 80053; 82728; 83880

== ENCOUNTER → 2022-11-21 10:03 | Outpatient (CLI) | payer BC, SELFPAY ==
[2022-11-24 17:06] LABS: Fecal Immunochemical Test Negative (Negative)
== END ==
PROVIDERS: PCP Family Medicine; Referring Provider Family Medicine; Visit Provider Family Medicine
DX: Z12.11 Encounter for screening for malignant neoplasm of colon (principal)
CPT/HCPCS: 82274

== ENCOUNTER → 2022-11-25 10:46 | Outpatient (CLI) | payer BC, SELFPAY ==
--- NOTE | 2022-11-25 10:46 | DI.MG.S_ITS ---
BILATERAL DIGITAL SCREENING MAMMOGRAM 3D/2D WITH CAD: 11/25/2022 CLINICAL: Routine screening. Comparison is made to exams dated: 03/17/2019 mammogram, 04/04/2016 mammogram, and 11/16/2013 mammogram - [facility]. Both breasts are heterogeneously dense, which may obscure small masses (category c / 51-75% glandular tissue). Current study was also evaluated with a Computer Aided Detection (CAD) system. No significant masses, calcifications, or other findings are seen in either breast. There has been no significant interval change. IMPRESSION: NEGATIVE There is no mammographic evidence of malignancy. A 1 year screening mammogram is recommended. Based on the Tyrer Cuzick model (a risk assessment model) the patient's lifetime risk is 11.8% and her 10 year risk is 2.8%. According to the ACR, ACS, and NCCN guidelines, an annual breast MRI exam along with mammogram is recommended if the patient's lifetime risk is 20% or greater. This exam was interpreted at Station ID: [id number]. NOTE: For mammograms, a report in lay terms will be sent to the patient. Approximately 15% of breast malignancies will not be visualized mammographically. In the management of a palpable breast mass, a negative mammogram must not discourage biopsy of a clinically suspicious lesion. Electronically Signed By: Issa galeas/karon:11/25/2022 15:41:51 letter sent: Normal Exam ACR BI-RADS Category 1: Negative [id number]
== END ==
PROVIDERS: PCP Family Medicine; Referring Provider Family Medicine; Visit Provider Family Medicine
DX: Z12.31 Encounter for screening mammogram for malignant neoplasm of breast (principal)
CPT/HCPCS: 77063; 77067

== ENCOUNTER → 2023-12-25 08:57 | Outpatient (CLI) | payer OTHER, SELFPAY | PROVIDERS: PCP Family Medicine; Visit Provider Nurse Practitioner Family | DX: R10.9 Unspecified abdominal pain (principal) | CPT/HCPCS: 87086 ==

== ENCOUNTER → 2024-01-04 11:11 | Outpatient (CLI) | payer OTHER, SELFPAY | PROVIDERS: PCP Family Medicine; Referring Provider Family Medicine; Visit Provider Family Medicine | DX: N39.0 Urinary tract infection, site not specified (principal) | CPT/HCPCS: 87086 ==

== ENCOUNTER → 2024-01-04 12:10 | Outpatient (CLI) | payer BC, SELFPAY ==
[2024-01-04 12:37] LABS: Add Manual Diff / Slide Review NO; Basophils Absolute Auto 100 /uL (0-100); Basophils Percent Auto 0.4 % (0-2); Eosinophils Absolute Auto 0 /uL (0-450); Eosinophils Percent Auto 0.1 % (2-4); Hematocrit 33.3 % (36-46); Hemoglobin 11.3 g/dL (12.0-16.0); Lymphocytes Absolute Auto 1200 /uL (1100-4500); Mean Corpuscular HGB Conc 33.9 % (30-36); Mean Corpuscular Volume 91.5 fL (80-100); Monocytes Absolute Auto 1600 /uL (0-900); Neutrophils Absolute Auto 13500 /uL (1500-7000); Neutrophils Percent Auto 82.5 % (50-75); Platelet Count 402 X10^3/uL (150-400); Red Blood Cell Count 3.63 X10^6/uL (4.0-5.2); Red Cell Distribution Width 12.7 % (11.6-14.8); White Blood Cell Count 16.4 X10^3/uL (4.5-11.0)
[2024-01-04 13:12] LABS: Alanine Aminotransferase 79 IU/L (<35); Albumin 3.6 g/dL (3.5-5.0); Albumin Globulin Ratio 1.2 (1.0-2.8); Alkaline Phosphatase 81 U/L (38-126); Aspartate Aminotransferase 51 IU/L (14-36); BUN Creatinine Ratio 15.9 (6-22); Bilirubin Total 0.6 mg/dL (0.2-1.3); Blood Urea Nitrogen 10 mg/dL (7-17); Calcium 8.7 mg/dL (8.4-10.2); Carbon Dioxide 25 mmol/L (22-32); Chloride 99 mmol/L (98-107); Estimated Glomerular Filt Rate > 60 mL/min (>60); Globulin 2.9 g/dL (1.7-4.1); Glucose 94 mg/dL (70-100); HEMOLYSIS < 15 (0-50); Potassium 3.6 mmol/L (3.4-5.1); Sodium 132 mmol/L (137-145); Total Protein 6.5 g/dL (6.3-8.2)
== END ==
PROVIDERS: PCP Family Medicine; Referring Provider Family Medicine; Visit Provider Family Medicine
DX: I49.1 Atrial premature depolarization; I49.3 Ventricular premature depolarization; I48.91 Unspecified atrial fibrillation; N39.0 Urinary tract infection, site not specified; E55.9 Vitamin D deficiency, unspecified; R53.83 Other fatigue; K76.89 Other specified diseases of liver; I31.39 Other pericardial effusion (noninflammatory); Z86.2 Personal history of diseases of the blood and blood-forming organs and certain disorders involving the immune mechanism
CPT/HCPCS: 36415; 80053; 85025; 87086

== ENCOUNTER → 2024-01-06 09:14 | Outpatient (CLI) | payer OTHER, SELFPAY ==
--- NOTE | 2024-01-06 | DI.CT.S_ITS ---
PROCEDURE: CT ABDOMEN PELVIS W CON INDICATIONS: Right lower quadrant abdominal pain, fever TECHNIQUE: After the administration of intravenous contrast, axial sections acquired from the lung bases to the pubic symphysis. Coronal and sagittal reformats were performed. For radiation dose reduction, the following was used: automated exposure control, adjustment of mA and/or kV according to patient size. COMPARISON: [facility], CT, CT ABDOMEN WO/W CON, 02/14/2020, 9:49. FINDINGS: Lower thorax: The lung bases are clear. Heart size normal. No hiatal hernia. Liver: Multiple cysts of varying sizes noted throughout the liver, unchanged from there are prior exam. Biliary system: No calcified cholelithiasis or pericholecystic inflammation. No intra or extrahepatic bile duct dilatation. Pancreas: Unremarkable without mass or inflammation evident. Spleen: Normal in size and density. Adrenals: Normal morphology and density. Reproductive system: Unremarkable as visualized. Urinary system: Normal renal size and attenuation. No renal calculi, hydronephrosis, or solid mass present. Urinary bladder unremarkable. Gastrointestinal system: The bowel is unremarkable without evidence of bowel obstruction or inflammation. The stomach appears unremarkable. Appendix: Appendix is dilated and inflamed, and associated with and adjacent 4.5 cm abscess with vigorous surrounding inflammatory changes. No evidence of free air or bowel obstruction. Moderate fecal debris throughout the colon Peritoneal spaces: No mesenteric or retroperitoneal adenopathy. Vasculature: The IVC, aorta and iliac vasculature are unremarkable. Abdominal wall: Abdominal wall intact without evidence of ventral or inguinal hernias. Musculoskeletal: Normal bone mineralization. No acute fractures. IMPRESSION: Ruptured appendicitis. 4.5 cm periappendiceal abscess with dilated inflamed appendicular base. No appendicoliths or bowel obstruction. No free air. Note: Critical results were discussed with Dr. Gray at 12:56 PM [place] time on 01/06/24 Approved by: Carlo Pandya M.D. on 01/06/2024 at 12:57
== END ==
PROVIDERS: PCP Family Medicine; Referring Provider Family Medicine; Visit Provider Family Medicine
DX: K35.33 Acute appendicitis with perforation, localized peritonitis, and gangrene, with abscess (principal); R10.31 Right lower quadrant pain; R50.9 Fever, unspecified
CPT/HCPCS: 74177; Q9967

== ENCOUNTER 2024-01-06 14:41 | Inpatient (IN) | payer BC, SELFPAY ==
[2024-01-06] VITALS (15 sets, daily range): BP systolic 111–131; BP diastolic 58–62; PULSE 64–89; RESP 16–17; TEMP 36.6–38.2; O2SAT 99–100; BMI 24.3
[2024-01-06 15:06] LABS: Add Manual Diff / Slide Review NO; Basophils Absolute Auto 100 /uL (0-100); Basophils Percent Auto 0.5 % (0-2); Eosinophils Absolute Auto 100 /uL (0-450); Eosinophils Percent Auto 0.3 % (2-4); Hemoglobin 11.1 g/dL (12.0-16.0); Lymphocytes Absolute Auto 1400 /uL (1100-4500); Lymphocytes Percent Auto 8.4 % (25-40); Mean Corpuscular HGB Conc 33.6 % (30-36); Mean Corpuscular Hemoglobin 30.4 PG (26-34); Mean Corpuscular Volume 90.5 fL (80-100); Monocytes Absolute Auto 1300 /uL (0-900); Monocytes Percent Auto 7.8 % (3-14); Neutrophils Absolute Auto 13800 /uL (1500-7000); Platelet Count 472 X10^3/uL (150-400); Red Blood Cell Count 3.64 X10^6/uL (4.0-5.2); Red Cell Distribution Width 12.7 % (11.6-14.8); White Blood Cell Count 16.6 X10^3/uL (4.5-11.0)
[2024-01-06 15:19] LABS: Lactate (Lactic Acid) 0.9 mmol/L (0.7-2.1)
[2024-01-06 15:20] LABS: Alanine Aminotransferase 87 IU/L (<35); Albumin 3.8 g/dL (3.5-5.0); Albumin Globulin Ratio 1.1 (1.0-2.8); Alkaline Phosphatase 88 U/L (38-126); Aspartate Aminotransferase 56 IU/L (14-36); Bilirubin Total 0.5 mg/dL (0.2-1.3); Blood Urea Nitrogen 7 mg/dL (7-17); Calcium 8.8 mg/dL (8.4-10.2); Carbon Dioxide 23 mmol/L (22-32); Chloride 101 mmol/L (98-107); Estimated Glomerular Filt Rate > 60 mL/min (>60); Globulin 3.5 g/dL (1.7-4.1); Glucose 128 mg/dL (70-100); HEMOLYSIS < 15 (0-50); Lipase 77 U/L (23-300); Potassium 3.1 mmol/L (3.4-5.1); Sodium 134 mmol/L (137-145); Total Protein 7.3 g/dL (6.3-8.2)
[2024-01-06 15:37] LABS: Procalcitonin 0.062 ng/mL (<0.5)
[2024-01-06 15:38] LABS: INR 1.4 (0.9-1.3); Prothrombin Time 16.1 SECONDS (9.4-12.5)
[2024-01-06 15:40] LABS: PTT Partial Thromboplastin Tim 31 SECONDS (25.1-36.5)
[2024-01-06] MEDS: SODIUM CHLORIDE 0.9% 1,000 ML 1000 ML IV (16:37)
--- NOTE | 2024-01-06 17:48 | ED_ITS ---
HPI - Abdominal Pain General Chief Complaint: Abdominal Pain Stated Complaint: ruptured appendix, sent by PCP Time Seen by Provider: 01/06/24 17:41 Source: patient Mode of arrival: Ambulatory History of Present Illness HPI narrative: Patient has felt ill for the past 2 weeks. Treated for UTI 2 weeks ago. And then got COVID about a week ago. Has had a fever and abdominal pain and is uncertain when she ruptured her appendix. Had outpatient CT today and was informed to come here for ruptured appendix. Pain is controlled. Patient in no distress. Related Data Home Medications Medication Instructions Recorded Confirmed metoprolol succinate 25 mg 12.5 mg PO DAILY 10/17/22 01/06/24 tablet,extended release 24 hr flecainide 50 mg tablet 25 mg PO BID 12/18/23 01/06/24 Previous Rx's Medication Instructions Recorded triamcinolone acetonide 0.1 % 1 applic topical BID PRN face 10/17/22 topical ointment eczema #15 grams triamcinolone acetonide 0.5 % See Rx Instructions .Route 10/17/22 topical cream .COMPLEX #45 grams Allergies Allergy/AdvReac Type Severity Reaction Status Date / Time Penicillins Allergy Intermediate Hives Verified 01/06/24 15:00 Review of Systems Review of Systems Narrative: GENERAL: negative chills, fatigue, malaise, positive fever, sweats. HEENT: negative sinus pain, ear pain, sore throat RESPIRATORY: negative dyspnea, cough CARDIOVASCULAR: negative chest pain, palpitations GASTROINTESTINAL: negative nausea, vomiting, positive abdominal pain : negative dysuria, frequency, hematuria MUSCULOSKELETAL: negative muscle or bony pain SKIN: negative rash, skin lesions NEUROLOGIC: negative weakness, numbness Patient History Medical History UTI (urinary tract infection) Pericardial effusion PAC (premature atrial contraction) PVC's (premature ventricular contractions) Surgical History Status post tubal ligation Status post delivery Status post delivery Status post delivery Status post arthroscopy Family History Father Age: 83 Hypertension Polycystic kidney disease Grandmother Cancer Mother Age: 80 Skin melanoma Stroke Social History household members: spouse Smoking Status: Former smoker Tobacco: How many years used: 6 alcohol intake: current substance use type: does not use Smoking Status: Former smoker alcohol intake frequency: 0-2 drinks per day Substance Use Type: does not use Exam Narrative Exam Narrative: GENERAL: in no distress, not toxic not dyspneic HEAD: Normocephalic. EYES: Pupils equal round ENT: Mucous membranes moist. NECK: Trachea midline. CARDIOVASCULAR: Regular rate and rhythm RESPIRATORY: Clear to auscultation. Breath sounds equal bilaterally. No wheezes, rales, or rhonchi. GASTROINTESTINAL: Abdomen soft, non-tender, no peritoneal signs bowel sounds are present. No CVA tenderness EXTREMITIES: No gross deformities. BACK: No flank tenderness. NEURO: AOx4. SKIN: Warm and dry PSYCH: Not anxious, is cooperative Initial Vital Signs Initial Vital Signs: Vital Signs Temperature 99.6 F 01/06/24 14:58 Pulse Rate 64 01/06/24 14:58 Respiratory Rate 16 01/06/24 14:58 Blood Pressure 131/62 01/06/24 14:58 Pulse Oximetry 99 01/06/24 14:58 Oxygen Delivery Method Room Air 01/06/24 14:58 Course Orders Ordered: Acetaminophen (Acetaminophen 325 Mg Tablet) 650 mg PO Q6H PRN PRN Reason: Fever/Mild Pain (1-3) Last Admin: 01/09/24 01:26 Dose: 650 mg Documented By: Admin: 01/08/24 14:19 Dose: 650 mg Documented By: Admin: 01/08/24 07:58 Dose: 650 mg Documented By: Admin: 01/08/24 01:56 Dose: 650 mg Documented By: Admin: 01/07/24 16:25 Dose: 650 mg Documented By: Admin: 01/07/24 09:00 Dose: 650 mg Documented By: Admin: 01/06/24 23:07 Dose: 325 mg Documented By: BIJAL Hydrocodone Bitart/Acetaminophen (Hydrocodone/Acet 5/325 Tablet) 2 tab PO Q4H PRN PRN Reason: Pain, Severe (7-10) Hydrocodone Bitart/Acetaminophen (Hydrocodone/Acet 5/325 Tablet) 1 tab PO Q4H PRN PRN Reason: Pain, Moderate (4-6) Last Admin: 01/09/24 09:36 Dose: 1 tab Documented By: Admin: 01/09/24 04:08 Dose: 1 tab Documented By: ARGENTINA Enoxaparin Sodium (Enoxaparin 40 Mg/0.4 Ml Syringe) 40 mg SUBCUT DAILY [facility] Flecainide Acetate (Flecainide 100 Mg Tablet) 25 mg PO BID [facility] Last Admin: 01/09/24 09:29 Dose: 25 mg Documented By: AIMEE Hydromorphone HCl (Hydromorphone 0.5 Mg Inj) 0.5 mg IV Q2H PRN PRN Reason: Pain, Severe (7-10) Metronidazole (Flagyl) 500 mg in 100 mls @ 100 mls/hr IV Q8H [facility] Last Admin: 01/09/24 09:43 Dose: 100 mls/hr Documented By: Infusion: 01/09/24 02:27 Dose: Infused Documented By: Admin: 01/09/24 01:26 Dose: 100 mls/hr Documented By: Infusion: 01/08/24 21:28 Dose: Infused Documented By: Admin: 01/08/24 20:20 Dose: 100 mls/hr Documented By: Infusion: 01/08/24 10:49 Dose: Infused Documented By: Admin: 01/08/24 09:49 Dose: 100 mls/hr Documented By: Infusion: 01/08/24 02:45 Dose: Infused Documented By: Admin: 01/08/24 01:38 Dose: 100 mls/hr Documented By: Infusion: 01/07/24 18:33 Dose: Infused Documented By: Admin: 01/07/24 17:33 Dose: 100 mls/hr Documented By: Infusion: 01/07/24 09:57 Dose: Infused Documented By: Admin: 01/07/24 08:57 Dose: 100 mls/hr Documented By: Infusion: 01/07/24 05:03 Dose: Infused Documented By: Infusion: 01/07/24 03:49 Dose: 100 mls/hr Documented By: Admin: 01/07/24 02:50 Dose: 100 mls/hr Documented By: Infusion: 01/06/24 21:19 Dose: Infused Documented By: Admin: 01/06/24 19:53 Dose: 100 mls/hr Documented By: Levofloxacin (Levaquin) 750 mg in 150 mls @ 100 mls/hr IV Q24H [facility] Last Infusion: 01/08/24 20:20 Dose: Infused Documented By: Admin: 01/08/24 17:21 Dose: 100 mls/hr Documented By: Infusion: 01/07/24 22:05 Dose: Infused Documented By: Admin: 01/07/24 17:32 Dose: 100 mls/hr Documented By: Lactated Ringer's (Lactated Ringers) 1,000 mls @ 120 mls/hr IV CONT [facility] Last Admin: 01/09/24 04:00 Dose: 120 mls/hr Documented By: Infusion: 01/09/24 04:00 Dose: Infused Documented By: Admin: 01/08/24 22:32 Dose: 120 mls/hr Documented By: AKI Ibuprofen (Ibuprofen 600 Mg Tablet) 600 mg PO Q6H PRN PRN Reason: Fever/Mild Pain (1-3) Last Admin: 01/09/24 09:35 Dose: 600 mg Documented By: Admin: 01/07/24 20:07 Dose: 600 mg Documented By: ARABELLA Metoprolol Succinate (Metoprolol Er 25 Mg Tablet) 12.5 mg PO DAILY [facility] Last Admin: 01/09/24 09:32 Dose: 12.5 mg Documented By: AIMEE Naloxone HCl (Naloxone 0.4 Mg/Ml Vial) 0.2 mg IV Q2MIN PRN PRN Reason: Opiate Reversal Ondansetron HCl (Ondansetron 4 Mg/2 Ml Inj) 4 mg IV Q8HR PRN PRN Reason: Nausea And Vomiting Discontinued Medications Bupivacaine HCl (Bupivacaine 0.25% (Pf) Vial) 30 ml INJ NOW ONE Stop: 01/08/24 20:32 Last Admin: 01/08/24 20:32 Dose: 12 ml Documented By: LISA Fentanyl (Fentanyl 100 Mcg/2 Ml Inj) 0 mcg IV Q5MIN PRN PRN Reason: Pain, Severe (7-10) Fentanyl (Fentanyl 100 Mcg/2 Ml Inj) 0 mcg IV Q5M PRN PRN Reason: Pain, Moderate (4-6) Fentanyl (Fentanyl 100 Mcg/2 Ml Inj) 0 mcg IV Q5M PRN PRN Reason: Pain, Severe (7-10) Flecainide Acetate (Flecainide 100 Mg Tablet) 25 mg PO BID [facility] Last Admin: 01/08/24 23:44 Dose: Not Given Documented By: Admin: 01/08/24 09:47 Dose: 25 mg Documented By: KAELA Hydromorphone HCl (Hydromorphone 1 Mg Inj) 0 mg IV Q5MIN PRN PRN Reason: Pain, Mild (1-3) Hydromorphone HCl (Hydromorphone 1 Mg Inj) 0 mg IV Q5MIN PRN PRN Reason: Pain, Moderate (4-6) Last Admin: 01/08/24 22:43 Dose: 0.5 mg Documented By: Admin: 01/08/24 22:37 Dose: 0.5 mg Documented By: TC Hydromorphone HCl (Hydromorphone 1 Mg Inj) 0 mg IV Q5MIN PRN PRN Reason: Pain, Severe (7-10) Sodium Chloride (Normal Saline 0.9%) 1,000 mls @ 1,000 mls/hr IV BOLUS ONE Stop: 01/06/24 15:48 Last Infusion: 01/06/24 17:58 Dose: Infused Documented By: Admin: 01/06/24 16:37 Dose: 1,000 mls/hr Documented By: SB Levofloxacin (Levaquin) 750 mg in 150 mls @ 100 mls/hr IV Q24H [facility] Last Infusion: 01/06/24 19:45 Dose: Infused Documented By: Admin: 01/06/24 18:16 Dose: 100 mls/hr Documented By: MPO Sodium Chloride (Normal Saline 0.9%) 1,000 mls @ 125 mls/hr IV CONT AUGUST Last Infusion: 01/07/24 01:01 Dose: 125 mls/hr Documented By: Admin: 01/06/24 18:16 Dose: 125 mls/hr Documented By: MPO Lactated Ringer's (Lactated Ringers) 1,000 mls @ 100 mls/hr IV CONT [facility] Last Infusion: 01/08/24 22:30 Dose: Infused Documented By: Admin: 01/08/24 19:22 Dose: 100 mls/hr Documented By: Infusion: 01/08/24 19:18 Dose: Infused Documented By: Admin: 01/08/24 07:06 Dose: 100 mls/hr Documented By: Infusion: 01/08/24 07:06 Dose: Infused Documented By: Infusion: 01/08/24 02:45 Dose: 100 mls/hr Documented By: Infusion: 01/08/24 01:40 Dose: 0 mls/hr Documented By: Admin: 01/07/24 16:26 Dose: 100 mls/hr Documented By: Infusion: 01/07/24 16:26 Dose: Infused Documented By: Admin: 01/07/24 07:34 Dose: 100 mls/hr Documented By: Infusion: 01/07/24 07:19 Dose: Infused Documented By: Admin: 01/06/24 21:19 Dose: 100 mls/hr Documented By: BIJAL Lorazepam (Lorazepam 2 Mg/Ml Inj) 0.25 mg IV NOW PRN PRN Reason: Anxiety Metoprolol Succinate (Metoprolol Er 25 Mg Tablet) 25 mg PO DAILY [facility] Last Admin: 01/08/24 09:47 Dose: 12.5 mg Documented By: KAELA Metoprolol Succinate (Metoprolol Er 25 Mg Tablet) 12.5 mg PO DAILY [facility] Morphine Sulfate (Morphine 2 Mg/Ml Inj) 2 mg IV Q4HR PRN PRN Reason: Pain, Moderate (4-6) Ondansetron HCl (Ondansetron 4 Mg/2 Ml Inj) 4 mg IV NOW PRN PRN Reason: Nausea And Vomiting Ondansetron HCl (Ondansetron 4 Mg Odt) 4 mg SL NOW PRN PRN Reason: Nausea And Vomiting Ondansetron HCl (Ondansetron 4 Mg/2 Ml Inj) 4 mg IV Q4HR PRN PRN Reason: Nausea And Vomiting Oxycodone/Acetaminophen (Oxycodone/Acetaminophen 5/325 Tablet) 1 tab PO PACUNOW PRN PRN Reason: Mild or Moderate Pain Last Admin: 01/08/24 22:37 Dose: 1 tab Documented By: TC Potassium Chloride (Potassium Chloride 20 Meq Tab) 40 meq PO NOW ONE Stop: 01/09/24 07:23 Last Admin: 01/09/24 09:41 Dose: 40 meq Documented By: EV Sodium Chloride (Sodium Chloride 0.9% Flush) 10 ml IV BID [facility] Last Admin: 01/08/24 23:44 Dose: Not Given Documented By: Admin: 01/08/24 07:59 Dose: 10 ml Documented By: Admin: 01/07/24 20:11 Dose: Not Given Documented By: Admin: 01/07/24 08:57 Dose: 10 ml Documented By: Vital Signs Vital signs: Vital Signs - 8 hr 01/06/24 14:58 01/06/24 16:30 01/06/24 16:31 Temperature 99.6 F Pulse Rate 64 89 Respiratory Rate 16 Blood Pressure 131/62 111/59 L Pulse Oximetry 99 Oxygen Delivery Method Room Air 01/06/24 16:31 01/06/24 17:00 01/06/24 17:30 Temperature Pulse Rate 88 65 65 Respiratory Rate 16 Blood Pressure Pulse Oximetry 99 100 100 Oxygen Delivery Method Room Air MDM - Abdominal Pain Lab Data 01/09/24 05:10 01/09/24 05:10 Labs: Lab Results 01/06/24 Range/Units 14:55 WBC 16.6 H (4.5-11.0) X10^3/uL RBC 3.64 L (4.0-5.2) X10^6/uL Hgb 11.1 L (12.0-16.0) g/dL Hct 33.0 L (36-46) % MCV 90.5 (80-100) fL MCH 30.4 (26-34) PG MCHC 33.6 (30-36) % RDW 12.7 (11.6-14.8) % Plt Count 472 H (150-400) X10^3/uL Neut % (Auto) 83.0 H (50-75) % Lymph % (Auto) 8.4 L (25-40) % [place] % (Auto) 7.8 (3-14) % Eos % (Auto) 0.3 L (2-4) % Baso % (Auto) 0.5 (0-2) % Neut # (Auto) 59580 H (1038-8347) /uL Lymph # (Auto) 1400 (8330-0998) /uL [place] # (Auto) 1300 H (0-900) /uL Eos # (Auto) 100 (0-450) /uL Baso # (Auto) 100 (0-100) /uL PT 16.1 H (9.4-12.5) SECONDS INR 1.4 H (0.9-1.3) APTT 31 (25.1-36.5) SECONDS Sodium 134 L (137-145) mmol/L Potassium 3.1 L (3.4-5.1) mmol/L Chloride 101 (98-107) mmol/L Carbon Dioxide 23 (22-32) mmol/L BUN 7 (7-17) mg/dL Creatinine 0.54 (0.52-1.04) mg/dL Estimated GFR > 60 (>60) mL/min BUN/Creatinine Ratio 13.0 (6-22) Glucose 128 H (70-100) mg/dL Lactate 0.9 (0.7-2.1) mmol/L Calcium 8.8 (8.4-10.2) mg/dL Total Bilirubin 0.5 (0.2-1.3) mg/dL AST 56 H (14-36) IU/L ALT 87 H (<35) IU/L Alkaline Phosphatase 88 (38-126) U/L Total Protein 7.3 (6.3-8.2) g/dL Albumin 3.8 (3.5-5.0) g/dL Globulin 3.5 (1.7-4.1) g/dL Albumin/Globulin Ratio 1.1 (1.0-2.8) Lipase 77 (23-300) U/L Procalcitonin 0.062 (<0.5) ng/mL Imaging Data CT scan - abdomen/pelvis: Radiologist's Impression: [address] [address] [address] Scan Report Signed Patient: Ann Patel MR#: [id number] : 1970 Acct:[id number] Age/Sex: 53 / F Date of Service: 01/06/24 Loc: CT Accession Number: [id number] Procedure: CT abdomen pelvis w con Ordering Provider: Ann Gray D.O. PROCEDURE: CT ABDOMEN PELVIS W CON INDICATIONS: Right lower quadrant abdominal pain, fever TECHNIQUE: After the administration of intravenous contrast, axial sections acquired from the lung bases to the pubic symphysis. Coronal and sagittal reformats were performed. For radiation dose reduction, the following was used: automated exposure control, adjustment of mA and/or kV according to patient size. COMPARISON: [facility], CT, CT ABDOMEN WO/W CON, 02/14/2020, 9:49. FINDINGS: Lower thorax: The lung bases are clear. Heart size normal. No hiatal hernia. Liver: Multiple cysts of varying sizes noted throughout the liver, unchanged from there are prior exam. Biliary system: No calcified cholelithiasis or pericholecystic inflammation. No intra or extrahepatic bile duct dilatation. Pancreas: Unremarkable without mass or inflammation evident. Spleen: Normal in size and density. Adrenals: Normal morphology and density. Reproductive system: Unremarkable as visualized. Urinary system: Normal renal size and attenuation. No renal calculi, hydronephrosis, or solid mass present. Urinary bladder unremarkable. Gastrointestinal system: The bowel is unremarkable without evidence of bowel obstruction or inflammation. The stomach appears unremarkable. Appendix: Appendix is dilated and inflamed, and associated with and adjacent 4.5 cm abscess with vigorous surrounding inflammatory changes. No evidence of free air or bowel obstruction. Moderate fecal debris throughout the colon Peritoneal spaces: No mesenteric or retroperitoneal adenopathy. Vasculature: The IVC, aorta and iliac vasculature are unremarkable. Abdominal wall: Abdominal wall intact without evidence of ventral or inguinal hernias. Musculoskeletal: Normal bone mineralization. No acute fractures. IMPRESSION: Ruptured appendicitis. 4.5 cm periappendiceal abscess with dilated inflamed appendicular base. No appendicoliths or bowel obstruction. No free air. Note: Critical results were discussed with Dr. Gray at 12:56 PM [place] time on 01/06/24 Approved by: Carlo Pandya M.D. on 01/06/2024 at 12:57 MDM Narrative Medical decision making narrative: Patient has felt ill for the past 2 weeks. Treated for UTI 2 weeks ago. And then got COVID about a week ago. Has had a fever and abdominal pain and is uncertain when she ruptured her appendix. Had outpatient CT today and was informed to come here for ruptured appendix. Pain is controlled. Patient in no distress. After history and exam CBC CMP lactic acid procalcitonin [facility] Medical records reviewed: No recent visit for this complaint, CT done outpatient and was reviewed Differential considered: Includes but not limited to appendicitis abdominal abscess Lab Test results independently reviewed as above. Pertinent findings: WBC 16.6 procalcitonin 0.062 lactate 0.9 Imaging studies independently reviewed: CT abdomen pelvis Consultations: 5:45 p.m. spoke with general surgery Dr. Jung, who will admit patient. Agrees with Levdanial and Flagyl. We need to try to contact Interventional Radiology for procedure here or transfer for the procedure [place] and back. 6:[address] Jung, I spoke with Dr. Huber, radiologist, on-call. Dr. Forrest, Interventional Radiology is available at [place] tomorrow. He will send message to her to add patient on for Interventional Radiology Treatments: Levaquin Flagyl normal saline Zofran Re-evaluations: 5:50 p.m.. Patient and agree for admission. They do understand interventional Radiology will likely be involved Discussion: Appropriate for admission for IV antibiotics and Interventional Radiology. Pain is controlled. General surgery will admit patient. Diagnosis: Periappendiceal abscess/ruptured appendix Discharge Plan Departure Patient Disposition: Admitted As Inpatient Clinical Impression: Ruptured appendix, Abscess of appendix Admit Date/Time: 01/06/24 18:02 Admit Provider: Armani Jung
[2024-01-06] MEDS: levoFLOXacin 750 MG/150 ML PIGGYBACK 100 MG IV (18:16)
[2024-01-06] MEDS: SODIUM CHLORIDE 0.9% 1,000 ML 125 ML IV (18:16)
--- NOTE | 2024-01-06 18:30 | PC.NURSE ---
Pt sitting up in bed. Ambulated to bathroom independently. Pt states that she cannot seem to get warm. Temp 99.4 taken orally. VS WNL. Pt a&ox4. States pain is 3/10 and declined pain medication at this time. Denies n/v, cp, sob.
[2024-01-06 19:42] LABS: Bacteria Urine Few (2-10); Culture Indicated Urine Specimen Cultured; RBC Urine 1-5/HPF (0-5/HPF); Squamous Epithelial Cell Urine 1-5 /HPF (0-5/HPF); Urine Volume 10mL (spun); WBC Urine 5-10/HPF (0-5/HPF)
[2024-01-06] MEDS: metroNIDAZOLE 500 MG/100 ML PIGGYBACK 100 MG IV (19:53)
--- NOTE | 2024-01-06 20:03 | PC.NURSE ---
Pt states that last oral intake of food or fluids has been about 7 hours around 1 pm today 01/06/24.
--- NOTE | 2024-01-06 20:41 | PC.NURSE ---
Report called to MONSE Jaurez at [phone]
[2024-01-06] MEDS: LACTATED RINGERS 1,000 ML 100 ML IV (21:19)
[2024-01-06] MEDS: ACETAMINOPHEN 325 MG TABLET 650 MG PO (23:07)
--- NOTE | 2024-01-07 00:16 | PC.ADMIT ---
[email or web address] [facility] Admission Note: Arrived to ED via stretcher, able to walk to bed on her own. A/O x 4, denies pain. at bedside The patient,Ann Patel,53 y/o, was given written information regarding hospital policies, unit procedures and contact persons. Patient's smoking status: Former smoker. Vital Signs - 8 hr 01/06/24 16:30 01/06/24 16:31 01/06/24 16:31 Temperature Pulse Rate 89 88 Respiratory Rate Blood Pressure 111/59 L Pulse Oximetry 99 Oxygen Delivery Method Oxygen Flow Rate 01/06/24 17:00 01/06/24 17:30 01/06/24 18:00 Temperature Pulse Rate 65 65 72 Respiratory Rate 16 Blood Pressure Pulse Oximetry 100 100 100 Oxygen Delivery Method Room Air Oxygen Flow Rate 01/06/24 18:15 01/06/24 18:15 01/06/24 18:30 Temperature 99.4 F Pulse Rate 77 74 Respiratory Rate Blood Pressure 114/60 Pulse Oximetry 100 100 Oxygen Delivery Method Oxygen Flow Rate 01/06/24 19:00 01/06/24 19:30 01/06/24 20:00 Temperature Pulse Rate 77 80 79 Respiratory Rate Blood Pressure 114/60 Pulse Oximetry 100 100 100 Oxygen Delivery Method Room Air Oxygen Flow Rate 01/06/24 20:04 01/06/24 20:04 01/06/24 20:07 Temperature Pulse Rate 81 79 Respiratory Rate Blood Pressure 118/58 L Pulse Oximetry 100 100 Oxygen Delivery Method Room Air Oxygen Flow Rate 01/06/24 21:00 01/06/24 23:07 Temperature 97.8 F 100.7 F H Pulse Rate 80 Respiratory Rate 17 Blood Pressure 116/61 Pulse Oximetry 100 Oxygen Delivery Method Oxygen Flow Rate 0
[2024-01-07] MEDS: metroNIDAZOLE 500 MG/100 ML PIGGYBACK 100 MG IV ×3 (02:50→17:33)
[2024-01-07 04:00] VITALS: BP 111/56; PULSE 87; RESP 17; TEMP 36.6; O2SAT 100
[2024-01-07 04:32] LABS: Add Manual Diff / Slide Review NO; Basophils Absolute Auto 100 /uL (0-100); Basophils Percent Auto 0.5 % (0-2); Eosinophils Absolute Auto 0 /uL (0-450); Eosinophils Percent Auto 0.2 % (2-4); Hematocrit 28.2 % (36-46); Hemoglobin 9.4 g/dL (12.0-16.0); Lymphocytes Absolute Auto 1000 /uL (1100-4500); Lymphocytes Percent Auto 7.8 % (25-40); Mean Corpuscular HGB Conc 33.4 % (30-36); Mean Corpuscular Hemoglobin 30.4 PG (26-34); Monocytes Absolute Auto 1000 /uL (0-900); Monocytes Percent Auto 7.7 % (3-14); Neutrophils Absolute Auto 10700 /uL (1500-7000); Neutrophils Percent Auto 83.8 % (50-75); Platelet Count 392 X10^3/uL (150-400); Red Cell Distribution Width 12.8 % (11.6-14.8); White Blood Cell Count 12.8 X10^3/uL (4.5-11.0)
[2024-01-07 04:48] LABS: Blood Urea Nitrogen 5 mg/dL (7-17); Calcium 8.3 mg/dL (8.4-10.2); Carbon Dioxide 25 mmol/L (22-32); Chloride 106 mmol/L (98-107); Estimated Glomerular Filt Rate > 60 mL/min (>60); Glucose 91 mg/dL (70-100); HEMOLYSIS < 15 (0-50); Potassium 3.3 mmol/L (3.4-5.1); Sodium 134 mmol/L (137-145)
[2024-01-07] MEDS: LACTATED RINGERS 1,000 ML 100 ML IV ×2 (07:34→16:26)
[2024-01-07 08:00] VITALS: BP 113/52; PULSE 79; RESP 16; TEMP 37.2; O2SAT 98
[2024-01-07] MEDS: SODIUM CHLORIDE 0.9% FLUSH 10 ML IV (08:57)
--- NOTE | 2024-01-07 08:58 | DI.US.S_ITS ---
PROCEDURE: US ABDOMEN LIMITED INDICATIONS: RUPTURED APPENDICEAL ABSCESS TECHNIQUE: Real-time focused scanning was performed of the abdomen, with image documentation. COMPARISON: [facility], US, ABDOMEN LIMITED, 04/16/2016, 9:57. [facility], CT, CT ABDOMEN PELVIS W CON, 01/06/2024, 10:34. FINDINGS: Complex focus of echogenicity within the right lower quadrant measuring approximately 4 cm. There are very limited small pockets of what appear to be clear anechoic fluid. IMPRESSION: Complex echogenicity at the site of clinical history ruptured appendiceal abscess. Very little portions of the collection appear to demonstrate simple fluid. Dictated by: Jimena Garvey M.D. on 01/07/2024 at 11:02 Approved by: Jimena Garvey M.D. on 01/07/2024 at 11:03
[2024-01-07] MEDS: ACETAMINOPHEN 325 MG TABLET 650 MG PO ×2 (09:00→16:25)
--- NOTE | 2024-01-07 09:06 | P.HP_ITS ---
History of Present Illness History of Present Illness Date Patient Seen: 01/07/24 Time Patient Seen: 09:06 Chief complaint: ruptured appendix, sent by PCP Narrative: Ann is a 53 year old woman who started to notice some right lower quadrant abdominal pain about 2 weeks ago. She noted severe abdominal pain when she would empty her bladder. She initially thought she might have a urinary tract infection. She also had flu-like symptoms and was diagnosed COVID. Once she recovered from COVID she noted she still had that the abdominal pain. She came to the emergency department last night and a CT scan demonstrated an appendiceal abscess. [facility] Medical History UTI (urinary tract infection) Pericardial effusion PAC (premature atrial contraction) PVC's (premature ventricular contractions) Surgical History Status post tubal ligation Status post delivery Status post delivery Status post delivery Status post arthroscopy Family History Father Age: 83 Hypertension Polycystic kidney disease Grandmother Cancer Mother Age: 80 Skin melanoma Stroke Social History household members: spouse Smoking Status: Former smoker Tobacco: How many years used: 6 alcohol intake: current substance use type: does not use Meds Home Medications and Allergies Home Medications Medication Instructions Recorded Confirmed Type metoprolol succinate 25 mg 12.5 mg PO DAILY 10/17/22 01/06/24 History tablet,extended release 24 hr triamcinolone acetonide 0.1 % 1 applic topical BID PRN face 10/17/22 01/06/24 Rx topical ointment eczema #15 grams triamcinolone acetonide 0.5 % See Rx Instructions .Route 10/17/22 01/06/24 Rx topical cream .COMPLEX #45 grams flecainide 50 mg tablet 25 mg PO BID 12/18/23 01/06/24 History Allergies Allergy/AdvReac Type Severity Reaction Status Date / Time Penicillins Allergy Intermediate Hives Verified 01/06/24 15:00 Exam Vital Signs (past 8 hours): - 01/07/24 04:00 01/07/24 08:00 Temperature 97.8 F 98.9 F Pulse Rate 87 79 Respiratory Rate 17 16 Blood Pressure 111/56 L 113/52 L Pulse Oximetry 100 98 Oxygen Flow Rate 0 0 Oxygen Delivery Method Room Air Oxygen Flow Rate 0 Const General: healthy appearing Resp Effort & Inspection: normal respiratory effort Objective Labs 01/07/24 04:13 01/07/24 04:13 Labs: Laboratory Results - last 24 hr 01/06/24 01/06/24 01/07/24 14:55 19:00 04:13 WBC 16.6 H 12.8 H RBC 3.64 L 3.10 L Hgb 11.1 L 9.4 L Hct 33.0 L 28.2 L MCV 90.5 91.0 MCH 30.4 30.4 MCHC 33.6 33.4 RDW 12.7 12.8 Plt Count 472 H 392 Neut % (Auto) 83.0 H 83.8 H Lymph % (Auto) 8.4 L 7.8 L [place] % (Auto) 7.8 7.7 Eos % (Auto) 0.3 L 0.2 L Baso % (Auto) 0.5 0.5 Neut # (Auto) 28844 H 52737 H Lymph # (Auto) 1400 1000 L [place] # (Auto) 1300 H 1000 H Eos # (Auto) 100 0 Baso # (Auto) 100 100 PT 16.1 H INR 1.4 H APTT 31 Sodium 134 L 134 L Potassium 3.1 L 3.3 L Chloride 101 106 Carbon Dioxide 23 25 BUN 7 5 L Creatinine 0.54 0.50 L Estimated GFR > 60 > 60 BUN/Creatinine Ratio 13.0 10.0 Glucose 128 H 91 Lactate 0.9 Calcium 8.8 8.3 L Total Bilirubin 0.5 AST 56 H ALT 87 H Alkaline Phosphatase 88 Total Protein 7.3 Albumin 3.8 Globulin 3.5 Albumin/Globulin Ratio 1.1 Lipase 77 Procalcitonin 0.062 Urine RBC 1-5/hpf Urine WBC 5-10/hpf H Ur Squamous Epith Cells 1-5 /hpf Urine Bacteria Few (2-10) H Ur Culture Indicated? Specimen cultured Vol Urine Centrifuged 10ml (spun) Assessment & Plan Assessment and plan (1) Abscess of appendix: Status: Acute Plan Ann is a 53-year-old woman with an appendiceal abscess. She has been started on IV antibiotics. Discussion with Interventional Radiology at [facility] about a potential percutaneous drain placement has taken place. The radiologist wants to perform an ultrasound to see if there are internal loculations before scheduling her for percutaneous drain procedure. A decision will then we made about the suitability of percutaneous drainage at [facility]. Time-Based Coding :: [TOTAL MINUTES] spent with patient and on the chart (including review of chart, obtaining history, exam, reviewing outside data, placing orders, documenting exam and treatment plan, and counseling patient) on [DATE]. Quality VTE Deep Vein Thrombosis/Pulmonary Embolism Present on Admission: No
--- NOTE | 2024-01-07 13:44 | CM.DANOTE ---
Discharge Planning/Care Management CM Discharge Assessment Start: 01/07/24 13:39 Freq: Status: Active Protocol: Document 01/07/24 13:39 JENN (Rec: 01/07/24 13:44 JENN [id number]) Discharge Planning Assessment Assigned Information Coder PREMA Rasheed DPOA/Assigned Designee Name Cade Patel, spouse Contact Information [phone] Advance Directives? No History Provided By Patient,Significant Other, Medical Record Prior Living Arrangements House Household Members spouse Type of transporation used prior to Drives own vehicle admit Independent with ADL's Yes Is patient alert and oriented? Yes Barriers to Discharge No Comment Met w/patient and spouse who report they have what they need at home for patient's recovery. Patient denies need from this CM team, appreciative for the visit. Discharge Plan Home Transportation Arrangement Spouse Referrals Initiated None needed
[2024-01-07 16:00] VITALS: BP 103/50; PULSE 66; RESP 16; TEMP 36.6; O2SAT 99
[2024-01-07] MEDS: levoFLOXacin 750 MG/150 ML PIGGYBACK 100 MG IV (17:32)
--- NOTE | 2024-01-07 19:11 | PC.NURSE ---
Pt tested positive for COVID a week ago, asymptomatic, placed in isolation per protocol.
[2024-01-07] MEDS: IBUPROFEN 600 MG TABLET PO (20:07)
[2024-01-08] VITALS (19 sets, daily range): BP systolic 91–117; BP diastolic 39–74; PULSE 74–88; RESP 14–30; TEMP 36.2–37.1; O2SAT 95–100; BMI 24.3
--- NOTE | 2024-01-08 | PATH_ITS ---
[facility] Accession Number: [id number] No. of containers..01 Tissue . 01 Material submitted: . colon - ILEOCECECTOMY . 01 Diagnosis: ILEOCECECTOMY: 1. Acute suppurative appendicitis with rupture and abscess formation, involving cecum with region of transmural necrosis. 2. Active serositis involves the proximal ileal resection margin. 3. No dysplasia, malignancy, or infectious organisms identified. 4. Eleven benign reactive lymph nodes. [facility] 01/13/2024 1742 Local . 01 Electronically signed: . Josh Carlson MD, Pathologist NPI- [id number] . 01 Gross description: . Received in formalin with two patient identifiers and ileocecectomy, is an ileocecectomy specimen with the attached ileum measuring 3.1 cm in length by 2.1 cm in diameter and the cecum measuring 7.9 cm in length and up to 5.2 cm in diameter. A large irregular hemorrhagic defect (3.2 x 3.0 cm) is noted at the proximal portion of the cecum adjacent to the presumed appendix. The adjacent appendix (measuring 13.1 cm length and ranging from 0.5 to 1.5 cm diameter) is tortuous with adherent hemorrhagic material and presumed exudate. The ileal margin is inked blue, the cecal margin is inked black, and the defect in the cecum wall is inked orange. Opening the specimen reveals the lumen to contain a small amount of green viscous material. A raised area of mucosa is identified adjacent to the serosal defect. Sectioning reveals a hemorrhagic cut surface with presumed fibrous tissue and no distinct mass grossly identified. The defect does not grossly continue to the mucosa. The appendiceal orifice is adjacent to, but grossly uninvolved with the defect. Sectioning the appendix reveals a patent lumen averaging 0.2 cm in diameter. The spaulding average 0.3 cm thick, intact with no distinct perforation identified. However, the adjacent adipose is relatively firm and fibrotic. Due to the convoluted nature of the appendix and the adjacent fibrotic fat, the distal tip is difficult to identify. No distinct lesions are identified. The remaining mucosa is green, velvety, unremarkable, with normal appearing folds. The spaulding average 0.3 cm thick with no lesions or diverticula identified. Palpation reveals ten mendez lymph node candidates ranging from 0.1 to 0.9 cm in greatest dimension. Recruitment Advertising Manager sections are submitted as follows: . A1: Ileal margin en face. A2: Rep cecal margin en face. A3-A4: Composite area of defect. A5-A6: Composite area of defect. A7: Longitudinal appendix to cecum. A8: Presumed one-half of bisected distal tip of appendix. A9-A10: Appendix cross-sections. A11: Ileocecal valve. A12: Unremarkable full thickness section. A13: Three intact lymph node candidates. A14: Four intact lymph node candidates. A15: Three intact lymph node candidates. ([id number]) /MRV 01/13/2024 1742 Local . 01 Pathologist provided ICD-10: K35.89 . 01 CPT . 171833 Specimen Comment: A courtesy copy of this report has been sent to [phone] Performed at: [address] [id number] MD Josh Carlson MD Phone: [phone]
[2024-01-08] MEDS: metroNIDAZOLE 500 MG/100 ML PIGGYBACK 100 MG IV ×3 (01:38→20:20)
[2024-01-08] MEDS: ACETAMINOPHEN 325 MG TABLET 650 MG PO ×3 (01:56→14:19)
[2024-01-08] MEDS: LACTATED RINGERS 1,000 ML 100 ML IV ×2 (07:06→19:22)
[2024-01-08] MEDS: SODIUM CHLORIDE 0.9% FLUSH 10 ML IV (07:59)
[2024-01-08] MEDS: METOPROLOL ER 25 MG TABLET PO (09:47)
[2024-01-08] MEDS: FLECAINIDE 100 MG TABLET 25 MG PO (09:47)
[2024-01-08 11:04] LABS: COVID19 -Nasal RAPID Negative (Negative)
--- NOTE | 2024-01-08 13:18 | PM.PN.1 ---
Subjective Subjective Date Patient Seen: 01/08/24 Time Patient Seen: 13:19 Interval history: No major events. Awaiting transfer for percutaneous drainage of appendiceal abscess. Exam Vital Signs (past 8 hours): - 01/08/24 07:45 01/08/24 08:32 01/08/24 09:47 Temperature 98.5 F Pulse Rate 79 79 Respiratory Rate 16 Blood Pressure 114/63 114/63 Pulse Oximetry 100 Oxygen Delivery Method Room Air Oxygen Delivery Method Room Air Oxygen Flow Rate 0 Narrative Exam Narrative: General adult woman alert oriented no acute distress Abdomen tender right lower quadrant. Objective Labs 01/07/24 04:13 01/07/24 04:13 Labs: Laboratory Results - last 24 hr 01/08/24 09:50 SARS-CoV-2 (PCR) Negative [facility] Medical History UTI (urinary tract infection) Pericardial effusion PAC (premature atrial contraction) PVC's (premature ventricular contractions) Surgical History Status post tubal ligation Status post delivery Status post delivery Status post delivery Status post arthroscopy Family History Father Age: 83 Hypertension Polycystic kidney disease Grandmother Cancer Mother Age: 80 Skin melanoma Stroke Social History household members: spouse Smoking Status: Former smoker Tobacco: How many years used: 6 alcohol intake: current substance use type: does not use Assessment & Plan Assessment & Plan narrative: 53-year-old woman with ruptured appendicitis and appendiceal abscess. Ideally she would receive percutaneous drainage by Interventional Radiology. Unfortunately she has been waiting for the past 48 hours for transfer and this does not appear to be occurring any time soon based on the current availability at the surrounding facilities. I had a lengthy discussion with the patient and her today in regards to plan forward. We discussed various options including further waiting for a possible transfer, continued antibiotic therapy and re-evaluation or diagnostic laparoscopy with drainage of intra-abdominal abscess and possible appendectomy. We discussed the risks benefits and alternatives to each alternative. After much discussion her preference is to proceed with diagnostic laparoscopy drainage of intra-abdominal abscess and possible appendectomy. We discussed the risks of the operation including infection, hemorrhage, damage to surrounding structures, conversion to open. Her questions have been answered and she is in agreement with this plan. Time-Based Coding :: [TOTAL MINUTES] spent with patient and on the chart (including review of chart, obtaining history, exam, reviewing outside data, placing orders, documenting exam and treatment plan, and counseling patient) on [DATE]. Quality VTE Deep Vein Thrombosis/Pulmonary Embolism Present on Admission: No
[2024-01-08] MEDS: levoFLOXacin 750 MG/150 ML PIGGYBACK 100 MG IV (17:21)
[2024-01-08 19:07] LABS: Bacteria Urine Many (>30); Culture Indicated Urine Specimen Cultured; RBC Urine 1-5/HPF (0-5/HPF); Squamous Epithelial Cell Urine 0-1 /HPF (0-5/HPF); Urine Volume 10mL (spun); WBC Urine >100/HPF (0-5/HPF)
[2024-01-08] MEDS: BUPIVACAINE 0.25% (PF) VIAL 30 ML INJ (20:32)
--- NOTE | 2024-01-08 20:35 | SUR.OPER ---
Supine on padded OR bed, head on pillow, safety belt at thigh, left arm padded and tucked at side. Right arm secured on padded arm board <90 degrees abduction. Legs uncrossed. Padded footboard in place. Tape over blanket to secure lower legs.
--- NOTE | 2024-01-08 22:17 | P.OP_ITS ---
Operative Date/Time/Diagnoses Date of procedure: 01/08/24 Time of procedure: 22:17 Pre-op diagnosis: Ruptured appendicitis, intra-abdominal abscess Post-op diagnosis: same Procedure & Clinicians Procedure: Diagnostic laparoscopy Open Ileocecectomy Drainage of intra abdominal abscess Same procedure as scheduled: Yes Indications: 53-year-old woman with 2 weeks of abdominal pain who presented with symptoms and radiographic findings consistent with acute appendicitis rupture and intra- abdominal abscess. After multiple unsuccessful attempts to transfer the patient for percutaneous drainage we decided to proceed with diagnostic laparoscopy and drainage of intra-abdominal abscess possible appendectomy. Surgeon: Vlad Kim Click Yes if Unassisted: Yes Anesthesia Type: General Operative Notes Findings: Intra-abdominal abscess of several cm within the right lower quadrant Necrotic base of cecum Perforated appendix Specimen(s): other (Ileocecectomy) Estimated Blood Loss (mL): 50 Procedure in detail: Patient was brought to the operating room placed supine on the table. Bilateral lower extremity compression devices were applied. General anesthesia was induced she was intubated with an endotracheal tube. She was prepped and draped in sterile fashion. Time-out performed. An infraumbilical incision was made the fascia was grasped sharply incised in the abdomen was entered atraumatically. A 12 mm balloon trocar was then placed into the abdomen and pneumoperitoneum was established. Additional working ports were placed in the left lower quadrant and suprapubic position. General inspection of the abdomen was made. There were multiple loops of small bowel as well as the right colon which were adherent to the anterior abdominal wall. Purulence was noted within the right lower quadrant/pelvis. The loops of small bowel were bluntly dissected off of the anterior abdominal wall which unroofed the abscess. The cecum was involved in the abscess it was clearly necrotic. With the fibrotic nature of the bowel it was very difficult to manipulate with laparoscopic instruments. We made a infraumbilical incision and a wound protector was placed. The right colon was mobilized medially to deliver the terminal ileum and cecum into the wound. A window within the mesentery to the terminal ileum was made and then the bowel was divided with the KINDRA stapler 75 mm blue load. The right colon was divided just distal to the cecum in a similar fashion. The ileocecectomy was then resected, the mesentery was divided using the LigaSure. The specimen was passed off the field labeled ileocecectomy. We then formed a [id number] functional end and anastomosis. A enterotomy and a colotomy were made on the anti mesenteric surface and then the 2 ends of bowel were joined together with the 3rd staple load. The anastomosis was widely patent and hemostatic. Crotch stitch with silk suture was placed. The common channel was then closed using a 3-0 PDS suture. The suture line was then imbricated using interrupted silk suture. The anastomosis was well perfused and without tension there was no evidence of leak. The mesenteric defect was then closed using silk suture. Nineteen Serbian Alonso drain was then brought through of the left lower quadrant and placed into the right pericolic gutter. We irrigated the abdomen with the proximally 4 L of saline and hemostasis was checked. The anastomosis was returned to the abdomen. The fascia was then closed in a running manner u sing looped PDS suture. The subcutaneous tissue was reapproximated with Vicryl and skin was closed with gela.. Aquacel dressing was placed over the wound. A local anesthetic block of the abdominal wall was performed by anesthesia. The patient then emerged from anesthesia and transferred to recovery in stable condition. Complications: none Post-operative Condition: stable Disposition: Acute Care
[2024-01-08] MEDS: LACTATED RINGERS 1,000 ML 120 ML IV (22:32)
[2024-01-08] MEDS: HYDROMORPHONE 1 MG INJ IV ×2 (22:37→22:43)
[2024-01-08] MEDS: OXYCODONE/ACETAMINOPHEN 5/325 TABLET 1 TAB PO (22:37)
[2024-01-09] VITALS (10 sets, daily range): BP systolic 90–111; BP diastolic 40–58; PULSE 64–90; RESP 16–19; TEMP 36.4–37.6; O2SAT 94–99
[2024-01-09] MEDS: metroNIDAZOLE 500 MG/100 ML PIGGYBACK 100 MG IV ×3 (01:26→18:33)
[2024-01-09] MEDS: ACETAMINOPHEN 325 MG TABLET 650 MG PO (01:26)
[2024-01-09] MEDS: LACTATED RINGERS 1,000 ML 120 ML IV ×2 (04:00→14:55)
[2024-01-09] MEDS: HYDROCODONE/ACET 5/325 TABLET 1 TAB PO ×4 (04:08→20:24)
[2024-01-09 05:27] LABS: Add Manual Diff / Slide Review NO; Basophils Absolute Auto 100 /uL (0-100); Basophils Percent Auto 0.4 % (0-2); Eosinophils Absolute Auto 0 /uL (0-450); Hematocrit 29.4 % (36-46); Hemoglobin 9.8 g/dL (12.0-16.0); Lymphocytes Absolute Auto 300 /uL (1100-4500); Lymphocytes Percent Auto 1.8 % (25-40); Mean Corpuscular HGB Conc 33.4 % (30-36); Mean Corpuscular Hemoglobin 30.4 PG (26-34); Monocytes Absolute Auto 600 /uL (0-900); Monocytes Percent Auto 3.2 % (3-14); Neutrophils Absolute Auto 17900 /uL (1500-7000); Neutrophils Percent Auto 94.6 % (50-75); Platelet Count 454 X10^3/uL (150-400); Red Blood Cell Count 3.23 X10^6/uL (4.0-5.2); Red Cell Distribution Width 12.7 % (11.6-14.8); White Blood Cell Count 18.9 X10^3/uL (4.5-11.0)
[2024-01-09 05:41] LABS: BUN Creatinine Ratio 23.8 (6-22); Blood Urea Nitrogen 10 mg/dL (7-17); Calcium 8.3 mg/dL (8.4-10.2); Carbon Dioxide 19 mmol/L (22-32); Chloride 106 mmol/L (98-107); Estimated Glomerular Filt Rate > 60 mL/min (>60); Glucose 112 mg/dL (70-100); HEMOLYSIS < 15 (0-50); Potassium 3.4 mmol/L (3.4-5.1); Sodium 136 mmol/L (137-145)
[2024-01-09] MEDS: FLECAINIDE 100 MG TABLET 25 MG PO ×2 (09:29→20:23)
[2024-01-09] MEDS: METOPROLOL ER 25 MG TABLET 12.5 MG PO (09:32)
[2024-01-09] MEDS: IBUPROFEN 600 MG TABLET PO ×2 (09:35→15:11)
[2024-01-09] MEDS: POTASSIUM CHLORIDE 20 MEQ TAB 40 MEQ PO (09:41)
--- NOTE | 2024-01-09 11:56 | PM.PNPO.1 ---
Subjective Subjective Date Patient Seen: 01/09/24 Time Patient Seen: 11:56 Interval history: -ambulated -urinating spontaneously -tolerating small amounts of regular diet -pain controlled with oral medication Exam Vital Signs (past 8 hours): - 01/09/24 06:00 01/09/24 08:00 01/09/24 09:32 Temperature 99.6 F 97.7 F Pulse Rate 72 72 90 Respiratory Rate 17 16 Blood Pressure 101/52 L 111/57 L 103/53 L Pulse Oximetry 94 97 Oxygen Delivery Method Room Air Oxygen Flow Rate 0 Narrative Exam Narrative: General adult woman alert oriented no acute distress Abdomen soft appropriately tender to palpation. Surgical drain serosanguineous. Objective Labs 01/09/24 05:10 01/09/24 05:10 Labs: Laboratory Results - last 24 hr 01/08/24 01/09/24 18:45 05:10 WBC 18.9 H RBC 3.23 L Hgb 9.8 L Hct 29.4 L MCV 91.0 MCH 30.4 MCHC 33.4 RDW 12.7 Plt Count 454 H Neut % (Auto) 94.6 H Lymph % (Auto) 1.8 L [place] % (Auto) 3.2 Eos % (Auto) 0.0 L Baso % (Auto) 0.4 Neut # (Auto) 04960 H Lymph # (Auto) 300 L [place] # (Auto) 600 Eos # (Auto) 0 Baso # (Auto) 100 Sodium 136 L Potassium 3.4 Chloride 106 Carbon Dioxide 19 L BUN 10 Creatinine 0.42 L Estimated GFR > 60 BUN/Creatinine Ratio 23.8 H Glucose 112 H Calcium 8.3 L Urine RBC 1-5/hpf Urine WBC >100/hpf H Ur Squamous Epith Cells 0-1 /hpf Urine Bacteria Many (>30) H Ur Culture Indicated? Specimen cultured Vol Urine Centrifuged 10ml (spun) PFSH Medical History UTI (urinary tract infection) Pericardial effusion PAC (premature atrial contraction) PVC's (premature ventricular contractions) Surgical History Status post tubal ligation Status post delivery Status post delivery Status post delivery Status post arthroscopy Family History Father Age: 83 Hypertension Polycystic kidney disease Grandmother Cancer Mother Age: 80 Skin melanoma Stroke Social History household members: spouse Smoking Status: Former smoker Tobacco: How many years used: 6 alcohol intake: current substance use type: does not use Assessment & Plan Post-op Postoperative Procedures: Procedures Operation Date: 01/08/24 19:30 Actual Procedure Side Surgeon p Laparoscopic drainage of abdominal fluid with open illeocecectomy Vlad Kim MD Postoperative status narrative: 53-year-old woman postoperative day 1 status post ileocecectomy for perforated appendicitis with abscess and necrosis of cecum. Postoperative plan: routine post-op care Postoperative plan narrative: -continue antibiotics -follow up urine analysis and culture -start pLovenox and SCDs Quality VTE Deep Vein Thrombosis/Pulmonary Embolism Present on Admission: No
--- NOTE | 2024-01-09 14:05 | PT.IIE ---
Current Diagnoses Acute appendicitis with perforation, localized peritonitis, and gangrene, with abscess (01/06/24) Surgery Performed Operation Date: 01/08/24 19:30 Actual Procedures p Laparoscopic drainage of abdominal fluid with open illeocecectomy - Vlad Kim MD Surgical History (Last Reviewed 01/06/24 @ 17:56 by Pawel White MD) Status post arthroscopy Status post delivery Status post delivery Status post delivery Status post tubal ligation Medical History (Last Reviewed 01/06/24 @ 17:56 by Pawel White MD) PAC (premature atrial contraction) Pericardial effusion PVC's (premature ventricular contractions) UTI (urinary tract infection) Physical Therapy Inpatient Evaluation/Re-Eval M1 PT/OT-IP Prior Functional Status Start: 01/09/24 16:02 Freq: NEEDED Status: Active Protocol: Document 01/09/24 14:05 AB (Rec: 01/09/24 16:21 AB [id number]) Medical Review Prior Functional Status Medical History Reviewed Yes Communication able to make needs known Mobility and Gait pt stated that she was independent with all mobilities and ambulation without AD Social History Household Members spouse,children Living Arrangements House Number of Floors (Floors) Two Floors Number of Stairs To Enter/Railing? 2 steps without rails to enter the house has 13 steps R rail ascending and L ledge Home Environment Standard Height Toilet,Walk in Shower Home Equipment Straight Cane,Hand Held Shower M2 PT-IP Current Condition Start: 01/09/24 16:02 Freq: NEEDED Status: Active Protocol: Document 01/09/24 14:05 AB (Rec: 01/09/24 16:21 AB [id number]) Physical Therapy Current Condition Current Condition Evaluation Date 01/09/24 Treatment Diagnosis s/p iliocecectomy; difficulty in walking Onset Date 01/06/24 M3 PT-IP Subjective Start: 01/09/24 16:02 Freq: NEEDED Status: Active Protocol: Document 01/09/24 14:05 AB (Rec: 01/09/24 16:21 AB [id number]) Subjective Physical Therapy Visit Type Type Initial Evaluation Visit Start Time 14:05 Visit Stop Time 15:00 Number of SENIOR NET DEVELOPER Visits 0 Physical Therapy Visit Comments Patient Comments agreeable to do PT Therapy Pain Assessment Pain When Pain Assessed At Rest Pain Present Pain Present Pain Reported Location Right Lower Abdomen Intensity 7 Scale Used increase with mobility Pain Behaviors Guarding Pain Management Techniques Distraction,Modification of Treatment,Timing of Activity with Medications M4 PT-IP Mobility and Gait Start: 01/09/24 16:02 Freq: NEEDED Status: Active Protocol: Document 01/09/24 14:05 AB (Rec: 01/09/24 16:21 AB [id number]) PT-Bed Mobility Assessment Rolling Type of Rolling Log Rolling Level of Assist Standby Assistance Supine to Sit Supine to Sit Standby Assistance PT-Transfer Assessment Sit to and From Stand Sit to and from Stand Standby Assistance,1 Person Assistance,Use of Upper Extremities Equipment Transfer Assistive Device None,Gait Belt Orthotic/Prosthetic Devices or Brace: No Transfers Transfer Destination Toilet Transfer Technique ambulated Transfer Ability Level of Assist Standby Assistance,Contact Guard Assistance Comments Mobility Comments pt supine in bed. spouse in room. obtained PLOF and home set up from pt and spouse. post-op handout provided to pt . educated pt and spouse regarding pt's abdominal precautions and log roll bed mobiliy. BP in supine: 105/55 . pt completed log roll supine to sit SBA and cues. able to sit on EOB SBA. no c/o dizziness. BP: 112/58. pt requested to use the toilet. completed sit to stand SBA and ambulated to the toilet without AD initial CGA due to unsteadiness but SBA after a few feet. completed toileting SBA. ambulated from the toilet to the sink SBA without AD and was able to maintain standing SBA while completing handwashing. pt ambulated to the chair SBA and rested. pt agreed to do stairs. positioned step stool. pt completed sit to stand from chair SBA and completed up/ down step stool without AD SBA . pt agreed to walk in the hallway and completed ~ 125 ft without AD SBA. presents with unsteady waddling gait but no LOB and pt was steadier midway with ambulation. pt stated that is is because she feels very guarded on her abdominal area. pt ambulated back to her room and agreed to sit on the chair. positioned pt on the chair. call light and table placed within reach. pt and spouse without further concerns. informed pt that no further PT needed at this time and pt agreed. informed pt to ambulate with spouse or nurse as much as possible. pt agreed. informed nurse. Gait Assessment Gait Gait Assistance Required: Standby Assistance,Contact Guard Assist Distance (Feet) 125 Able to Maintain Weight Bearing Status Yes During Gait Assistive Devices Assistive Device None,Gait Belt Orthotic/Prosthetic Devices or Brace: No Gait Deviations General Gait Pattern Ataxic,Decreased Stride Length ,Decreased Feet Clearance Factors Limiting Gait Function Factors Limiting Gait Function Decreased Activity Tolerance, Decreased Strength,Limited Range of Motion,Pain,Poor Balance,Poor Safety Awareness Stair Climbing Assessment Evaluation Level of Assist On Stairs Standby Assistance Devices Stair Climbing Assistive Devices None Technique/Endurance Stair Climbing Direction Ascend and Descend Stair Climbing Technique Step to Step Number of Steps Climbed 1 Query Text: Stair Climbing Set # Repetitions (reps) 2 PT-Balance Assessment Sitting Balance and Reactions Static Sitting Balance Ability Normal Dynamic Sitting Balance Ability Good Standing Balance and Reactions Static Standing Balance Ability Good Dynamic Standing Balance Ability Fair Device Used without AD M5 PT-IP Objective Assessments Start: 01/09/24 16:02 Freq: NEEDED Status: Active Protocol: Document 01/09/24 14:05 AB (Rec: 01/09/24 16:21 AB [id number]) Orientation Orientation/Cognition Level of Alertness Alert Orientation Name,Place,Situation Language Function Ability No Deficits Noted Safety Awareness Understands Safety Issues Memory Description No Deficits Noted Gross Range of Motion Lower Extremity ROM Assessment Within Functional Limits Strength Lower Extremity Strength Assessment Within Functional Limits Coordination Assessment Gross Coordination Gross Coordination WNL Sensation Assessment Sensation Gross Sensation WNL Muscle Tone Muscle Tone WNL Yes M6 PT-IP Treatment Start: 01/09/24 16:02 Freq: NEEDED Status: Active Protocol: Document 01/09/24 14:05 AB (Rec: 01/09/24 16:21 AB [id number]) Physical Therapy Treatment Education Education Provided Precautions,Post-Op Packet, Safety M7 PT-IP Assessment and Plan Start: 01/09/24 16:02 Freq: NEEDED Status: Active Protocol: Document 01/09/24 14:05 AB (Rec: 01/09/24 16:21 AB [id number]) PT Summary Assessment and Plan Potential Rehabilitation Potential Good Status of Condition at Evaluation Stable Summary Impairments Pain,ROM,Strength,Balance,Bed Mobility,Transfers,Gait, Activity Tolerance Assessment Summary pt is a 53 y/o F who presented with a burst appendix with intrabdominal abscess and underwent laporascopic sx s/p ileocecectomy POD 1. pt has abdominal precautions. PT eval completed and pt educated on precautions. Assessed mobility and pt requiring SBA without AD. pt plans to go home and spouse and children to assist her. No further PT interventions indicated at this time. pt to ambulated with nursing supervision. Frequency of Treatment Frequency Of Treatment Discharge Treatment Plan Physical Therapy Treatment Plan Bed Mobility Training,Transfer Training,Gait Training, Therapeutic Exercise,Balance Retraining,Post Op Education, Discharge Planning,Hot or Cold Pack,Neuromuscular Re-ed, Coordination Retraining,Manual Therapy Precautions Abdominal Surgery Precautions Log Roll,Lifting Restrictions, Gait Belt above Incisional Area Recommendations To Nursing Amount of Assist Needed Standby Assistance Discharge Recommendations PT Discharge Recommendations Home with Assistance Transportation Needs at Discharge Private Vehicle
--- NOTE | 2024-01-09 15:44 | CM.DPC ---
DCP Cont Reviewed chart. Patient discussed in multidisciplinary rounds. Patient is s/p Laparoscopic drainage of abdominal fluid with open illeocecectomy Diet being advanced, patient requiring SBA when out of bed. Discharge home w/family anticipated w/close outpatient follow up. CM team following closely in case any discharge needs or concerns arise. JENN
[2024-01-09] MEDS: levoFLOXacin 750 MG/150 ML PIGGYBACK 100 MG IV (16:46)
[2024-01-10] VITALS: BP 88/48; PULSE 75; RESP 19; TEMP 36.2; O2SAT 98
[2024-01-10] MEDS: IBUPROFEN 600 MG TABLET PO ×2 (00:38→08:32)
[2024-01-10] MEDS: ACETAMINOPHEN 325 MG TABLET 650 MG PO ×2 (00:39→08:32)
[2024-01-10] MEDS: metroNIDAZOLE 500 MG/100 ML PIGGYBACK 100 MG IV ×3 (01:44→23:27)
[2024-01-10] MEDS: LACTATED RINGERS 1,000 ML 120 ML IV (03:31)
[2024-01-10 04:00] VITALS: BP 95/52; PULSE 74; RESP 19; TEMP 36.5; O2SAT 99
[2024-01-10 05:12] LABS: Add Manual Diff / Slide Review NO; Basophils Absolute Auto 0 /uL (0-100); Basophils Percent Auto 0.1 % (0-2); Eosinophils Absolute Auto 0 /uL (0-450); Eosinophils Percent Auto 0.2 % (2-4); Hematocrit 27.8 % (36-46); Hemoglobin 9.3 g/dL (12.0-16.0); Lymphocytes Absolute Auto 900 /uL (1100-4500); Mean Corpuscular HGB Conc 33.6 % (30-36); Mean Corpuscular Hemoglobin 30.3 PG (26-34); Mean Corpuscular Volume 90.4 fL (80-100); Monocytes Absolute Auto 900 /uL (0-900); Monocytes Percent Auto 5.3 % (3-14); Neutrophils Absolute Auto 15200 /uL (1500-7000); Neutrophils Percent Auto 89.4 % (50-75); Platelet Count 472 X10^3/uL (150-400); Red Blood Cell Count 3.08 X10^6/uL (4.0-5.2); Red Cell Distribution Width 12.7 % (11.6-14.8)
[2024-01-10 05:21] LABS: BUN Creatinine Ratio 20.8 (6-22); Blood Urea Nitrogen 10 mg/dL (7-17); Calcium 8.1 mg/dL (8.4-10.2); Carbon Dioxide 23 mmol/L (22-32); Chloride 103 mmol/L (98-107); Estimated Glomerular Filt Rate > 60 mL/min (>60); Glucose 116 mg/dL (70-100); HEMOLYSIS < 15 (0-50); Potassium 3.3 mmol/L (3.4-5.1); Sodium 131 mmol/L (137-145)
[2024-01-10 07:50] VITALS: BP 90/47; PULSE 77; RESP 16; TEMP 36.4; O2SAT 99
[2024-01-10 08:01] VITALS: BP 98/52
[2024-01-10] MEDS: ENOXAPARIN 40 MG/0.4 ML SYRINGE SUBCUT (08:33)
[2024-01-10] MEDS: POTASSIUM CHLORIDE 20 MEQ TAB 40 MEQ PO ×2 (08:37→14:47)
[2024-01-10] MEDS: HYDROCODONE/ACET 5/325 TABLET 1 TAB PO (10:11)
[2024-01-10] MEDS: CELECOXIB 200 MG CAPSULE PO (12:42)
--- NOTE | 2024-01-10 12:45 | P.PN_ITS ---
Subjective Subjective Date Patient Seen: 01/10/24 Time Patient Seen: 12:46 Interval history: No acute events Tolerating reg diet no flatus or bm ambulating Exam Vital Signs (past 8 hours): - 01/10/24 07:50 01/10/24 08:01 Temperature 97.5 F L Pulse Rate 77 Respiratory Rate 16 Blood Pressure 90/47 L 98/52 L Pulse Oximetry 99 Oxygen Flow Rate 0 Oxygen Delivery Method Room Air Oxygen Flow Rate 0 Narrative Exam Narrative: Gen-Adult woman alert and oriented Abdomen-Soft appropriately tender Objective Labs 01/10/24 04:20 01/10/24 04:20 Labs: Laboratory Results - last 24 hr 01/10/24 04:20 WBC 17.0 H RBC 3.08 L Hgb 9.3 L Hct 27.8 L MCV 90.4 MCH 30.3 MCHC 33.6 RDW 12.7 Plt Count 472 H Neut % (Auto) 89.4 H Lymph % (Auto) 5.0 L [place] % (Auto) 5.3 Eos % (Auto) 0.2 L Baso % (Auto) 0.1 Neut # (Auto) 45416 H Lymph # (Auto) 900 L [place] # (Auto) 900 Eos # (Auto) 0 Baso # (Auto) 0 Sodium 131 L Potassium 3.3 L Chloride 103 Carbon Dioxide 23 BUN 10 Creatinine 0.48 L Estimated GFR > 60 BUN/Creatinine Ratio 20.8 Glucose 116 H Calcium 8.1 L PFSH Medical History UTI (urinary tract infection) Pericardial effusion PAC (premature atrial contraction) PVC's (premature ventricular contractions) Surgical History Status post tubal ligation Status post delivery Status post delivery Status post delivery Status post arthroscopy Family History Father Age: 83 Hypertension Polycystic kidney disease Grandmother Cancer Mother Age: 80 Skin melanoma Stroke Social History household members: spouse and children Smoking Status: Former smoker Tobacco: How many years used: 6 alcohol intake: current substance use type: does not use Assessment & Plan Post-op Postoperative Procedures: Procedures Operation Date: 01/08/24 19:30 Actual Procedure Side Surgeon p Laparoscopic drainage of abdominal fluid with open illeocecectomy Vlad Kim MD Postoperative status narrative: POD 2 sp ileocectomy -Anticipate dc Thu or Thursday Convert abx to PO total of 5 days post op DC IVF Drain removal prior to discharge Quality VTE Deep Vein Thrombosis/Pulmonary Embolism Present on Admission: No
--- NOTE | 2024-01-10 12:52 | CM.DPNOTE ---
DCP Cont According to Dr Kim, patient is recovering well and will be able to discharge home safely when able to tolerate diet, pain well managed etc. No needs anticipated from this CM team. Home w/supportive spouse, close outpatient follow up. JW
[2024-01-10] MEDS: metroNIDAZOLE 500 MG TABLET PO (14:47)
[2024-01-10] MEDS: TRAMADOL 50 MG TABLET PO (14:50)
[2024-01-10] MEDS: OXYCODONE IR 5 MG TABLET PO (17:11)
[2024-01-10 18:08] VITALS: BP 94/47
[2024-01-10] MEDS: ONDANSETRON 4 MG/2 ML INJ IV (18:25)
--- NOTE | 2024-01-10 19:24 | DI.RAD.S_ITS ---
PROCEDURE: XR ABDOMEN 1V INDICATIONS: abdominal pain TECHNIQUE: One view of the abdomen acquired. COMPARISON: None. FINDINGS: Surgical changes and devices: Catheter overlying the abdomen. Lower midline staple line. Bowel: Scattered small bowel and colonic gas. Bowel gas is somewhat prominent. Scant oral contrast in the rectum. Soft tissues: No suspicious abdominal calcifications. Visualized solid organ contours appear normal in size. Bones: No suspicious bony lesions. IMPRESSION: Somewhat prominent bowel gas. No bowel obstruction identified. Dictated by: Issa Huber M.D. on 01/10/2024 at 20:00 Approved by: Issa Huber M.D. on 01/10/2024 at 20:02
[2024-01-10 19:52] VITALS: BP 98/48; PULSE 82; RESP 16; TEMP 36.6; O2SAT 97
[2024-01-10 19:54] LABS: Add Manual Diff / Slide Review NO; Basophils Absolute Auto 200 /uL (0-100); Basophils Percent Auto 0.8 % (0-2); Eosinophils Absolute Auto 100 /uL (0-450); Eosinophils Percent Auto 0.5 % (2-4); Hemoglobin 10.4 g/dL (12.0-16.0); Lymphocytes Absolute Auto 600 /uL (1100-4500); Lymphocytes Percent Auto 3.3 % (25-40); Mean Corpuscular HGB Conc 33.4 % (30-36); Mean Corpuscular Hemoglobin 30.5 PG (26-34); Mean Corpuscular Volume 91.2 fL (80-100); Monocytes Absolute Auto 1100 /uL (0-900); Monocytes Percent Auto 5.6 % (3-14); Neutrophils Absolute Auto 17000 /uL (1500-7000); Neutrophils Percent Auto 89.8 % (50-75); Platelet Count 579 X10^3/uL (150-400); White Blood Cell Count 18.9 X10^3/uL (4.5-11.0)
[2024-01-10] MEDS: SODIUM CHLORIDE 0.9% 1,000 ML 1000 ML IV (20:03)
[2024-01-10 20:08] LABS: Lactate (Lactic Acid) 0.8 mmol/L (0.7-2.1)
[2024-01-10] MEDS: LACTATED RINGERS 1,000 ML 150 ML IV (20:51)
[2024-01-10] MEDS: KETOROLAC 30 MG/ML VIAL IV (23:26)
[2024-01-10] MEDS: METOCLOPRAMIDE 10 MG/2 ML INJ 5 MG IV (23:27)
[2024-01-11] VITALS (9 sets, daily range): BP systolic 102–113; BP diastolic 48–63; PULSE 76–85; RESP 16–20; TEMP 36.2–37.5; O2SAT 97–99
[2024-01-11] MEDS: levoFLOXacin 750 MG/150 ML PIGGYBACK 100 MG IV ×2 (00:31→23:54)
--- NOTE | 2024-01-11 01:51 | PC.NURSE ---
NOC: Pt reports lack of appetite starting @ lunchtime. Upon assumption of care at 1920, pt reported low-grade nausea, dizziness, feeling hot/cold, and pallor. reported concern re: pt lethargy. Upon assessment, no bowel tones audible and pt hypotensive (99/50). Informed MD Kim; orders received for abd x-ray, lactate, CBC. Reported results back to MD Kim; gave 1L NS bolus, pt now NPO, back on LR 150mL/hr, switched from PO abx to IV abx, IV zofran and reglan for N/V and IV Toradol for pain. Placed on tele due to hypotension and cardiac hx. Care continues.
[2024-01-11 05:59] LABS: Add Manual Diff / Slide Review NO; Basophils Absolute Auto 100 /uL (0-100); Basophils Percent Auto 0.5 % (0-2); Eosinophils Absolute Auto 0 /uL (0-450); Eosinophils Percent Auto 0.1 % (2-4); Hematocrit 29.3 % (36-46); Hemoglobin 9.9 g/dL (12.0-16.0); Lymphocytes Absolute Auto 600 /uL (1100-4500); Lymphocytes Percent Auto 3.5 % (25-40); Mean Corpuscular HGB Conc 33.7 % (30-36); Mean Corpuscular Hemoglobin 30.4 PG (26-34); Mean Corpuscular Volume 90.1 fL (80-100); Monocytes Absolute Auto 700 /uL (0-900); Monocytes Percent Auto 4.5 % (3-14); Neutrophils Absolute Auto 15100 /uL (1500-7000); Neutrophils Percent Auto 91.4 % (50-75); Platelet Count 563 X10^3/uL (150-400); Red Blood Cell Count 3.25 X10^6/uL (4.0-5.2); White Blood Cell Count 16.5 X10^3/uL (4.5-11.0)
[2024-01-11 06:10] LABS: BUN Creatinine Ratio 17.5 (6-22); Blood Urea Nitrogen 7 mg/dL (7-17); Carbon Dioxide 23 mmol/L (22-32); Chloride 106 mmol/L (98-107); Estimated Glomerular Filt Rate > 60 mL/min (>60); Glucose 98 mg/dL (70-100); HEMOLYSIS < 15 (0-50); Sodium 134 mmol/L (137-145)
[2024-01-11] MEDS: LACTATED RINGERS 1,000 ML 150 ML IV ×3 (06:27→23:00)
[2024-01-11] MEDS: KETOROLAC 30 MG/ML VIAL IV ×3 (06:27→23:01)
[2024-01-11] MEDS: metroNIDAZOLE 500 MG/100 ML PIGGYBACK 100 MG IV ×3 (06:30→23:01)
[2024-01-11] MEDS: CELECOXIB 200 MG CAPSULE PO (10:18)
[2024-01-11] MEDS: METOPROLOL ER 25 MG TABLET 12.5 MG PO (10:18)
[2024-01-11] MEDS: ENOXAPARIN 40 MG/0.4 ML SYRINGE SUBCUT (10:18)
--- NOTE | 2024-01-11 10:57 | DIET.CONS ---
Dietary Consultation Note Admission Date: 01/06/2024 18:02 Assessment: 53 y F admitted for ruptured appendix. Nutrition screened for LOS day 5. Met w/ pt at bedside. Reports 2 weeks before admission, did have reduced po intakes r/t covid/abd pain. Estimated around 50-75% of her normal intake during this time. Reports was attempting to lose weight before hardy COVID. Pt does not like clear Ensure. Diet history last 5 days: General dinner on 01/06 NPO 01/07 General diet for breakfast, lunch, and dinner 01/08 50% breakfast 01/09, few bites at lunch per pt NPO 01/10 Nutrition focused physical exam performed with no significant findings. Assessed: temples, clavicle region, interosseous, buccal and orbital fat pads, triceps. Ht: 172.72 cm Wt: 72.575 kg BMI: 24.3 UBW: 73.255 kg on 12/18/23 (<1% weight loss in 4 wks, non-significant) Last BM: 01/06/24 (01/08/24 19:02) MNA: 11 Brian Score: 20 Diet: 01/10/24 22:40 NPO Diet Diet Modifications: May Advance Diet as Tolerated: No Safety Tray needed?: No NPO Type: NPO except for Ice Chips Nutrition Percent Meal Consumed 0% 01/10/24 18:00 Percent Meal Consumed 75% 01/09/24 18:00 Labs: RBC 3.25 X10^6/uL (4.0-5.2) L 01/11/24 05:00 Hgb 9.9 g/dL (12.0-16.0) L 01/11/24 05:00 Hct 29.3 % (36-46) L 01/11/24 05:00 Creatinine 0.40 mg/dL (0.52-1.04) L 01/11/24 05:00 Lactate 0.8 mmol/L (0.7-2.1) 01/10/24 19:35 Nutrition Diagnosis: Inadequate oral intake r/t alterations in GI tract aeb <50% average po intakes for 5 days Interventions: 1. Consider nutrition support if diet unable to be advanced today 2. Will provide protein supplementation when diet advanced to fulls/general as tolerated EER: [id number] kcals (25-28 kcals/kg per BMI) 65-75 g protein (1 g/kg) Monitoring/Evaluations: diet advancement Electronically Signed by: Alexandrea Gale 01/11/24 10:57 Clinical Dietitian [address] [address]
[2024-01-11] MEDS: METOCLOPRAMIDE 10 MG/2 ML INJ 5 MG IV ×3 (11:18→23:55)
--- NOTE | 2024-01-11 12:37 | CM.DPC ---
DCP Cont. Reviewed EMR and team rounds for status updates. Pt is still waiting for return of bowel function. Will monitor for possible home d/c tomorrow, 01/11. No anticipated d/c needs at this time.
[2024-01-11] MEDS: ONDANSETRON 4 MG/2 ML INJ IV ×2 (14:24→20:56)
--- NOTE | 2024-01-11 14:27 | PM.PN.1 ---
Subjective Subjective Date Patient Seen: 01/11/24 Interval history: Feels slightly better today but still no appetite for anything more than ice chips. Passing some occasional flatus Exam Vital Signs (past 8 hours): - 01/11/24 08:14 01/11/24 10:18 01/11/24 10:48 Temperature 97.6 F Pulse Rate 85 85 78 Respiratory Rate 17 Blood Pressure 108/62 108/62 Pulse Oximetry 99 Oxygen Flow Rate 0 01/11/24 11:58 Temperature 97.1 F L Pulse Rate 83 Respiratory Rate 16 Blood Pressure 111/63 Pulse Oximetry 99 Oxygen Flow Rate 0 Oxygen Delivery Method Room Air Oxygen Flow Rate 0 Narrative Exam Narrative: Abdomen soft, distended Lower midline dressings in place Objective Labs 01/11/24 05:00 01/11/24 05:00 Labs: Laboratory Results - last 24 hr 01/10/24 01/11/24 19:35 05:00 WBC 18.9 H 16.5 H RBC 3.40 L 3.25 L Hgb 10.4 L 9.9 L Hct 31.0 L 29.3 L MCV 91.2 90.1 MCH 30.5 30.4 MCHC 33.4 33.7 RDW 13.0 13.0 Plt Count 579 H 563 H Neut % (Auto) 89.8 H 91.4 H Lymph % (Auto) 3.3 L 3.5 L [place] % (Auto) 5.6 4.5 Eos % (Auto) 0.5 L 0.1 L Baso % (Auto) 0.8 0.5 Neut # (Auto) 60894 H 93905 H Lymph # (Auto) 600 L 600 L [place] # (Auto) 1100 H 700 Eos # (Auto) 100 0 Baso # (Auto) 200 H 100 Sodium 134 L Potassium 4.0 Chloride 106 Carbon Dioxide 23 BUN 7 Creatinine 0.40 L Estimated GFR > 60 BUN/Creatinine Ratio 17.5 Glucose 98 Lactate 0.8 Calcium 8.0 L PFSH Medical History UTI (urinary tract infection) Pericardial effusion PAC (premature atrial contraction) PVC's (premature ventricular contractions) Surgical History Status post tubal ligation Status post delivery Status post delivery Status post delivery Status post arthroscopy Family History Father Age: 83 Hypertension Polycystic kidney disease Grandmother Cancer Mother Age: 80 Skin melanoma Stroke Social History household members: spouse and children Smoking Status: Former smoker Tobacco: How many years used: 6 alcohol intake: current substance use type: does not use Assessment & Plan Assessment and plan (1) Abscess of appendix: Status: Acute Plan Postoperative ileus following ileocecectomy for perforated appendicitis Await more bowel function before advancing diet Time-Based Coding :: [TOTAL MINUTES] spent with patient and on the chart (including review of chart, obtaining history, exam, reviewing outside data, placing orders, documenting exam and treatment plan, and counseling patient) on [DATE]. Quality VTE Deep Vein Thrombosis/Pulmonary Embolism Present on Admission: No
[2024-01-12 03:33] VITALS: BP 109/59; PULSE 71; RESP 20; TEMP 36.6; O2SAT 97
[2024-01-12 06:39] LABS: Add Manual Diff / Slide Review NO; Basophils Absolute Auto 0 /uL (0-100); Basophils Percent Auto 0.2 % (0-2); Eosinophils Absolute Auto 100 /uL (0-450); Eosinophils Percent Auto 0.5 % (2-4); Hematocrit 30.4 % (36-46); Hemoglobin 10.3 g/dL (12.0-16.0); Lymphocytes Absolute Auto 600 /uL (1100-4500); Lymphocytes Percent Auto 4.3 % (25-40); Mean Corpuscular HGB Conc 33.8 % (30-36); Mean Corpuscular Hemoglobin 30.5 PG (26-34); Mean Corpuscular Volume 90.2 fL (80-100); Monocytes Absolute Auto 900 /uL (0-900); Monocytes Percent Auto 6.4 % (3-14); Neutrophils Absolute Auto 12000 /uL (1500-7000); Neutrophils Percent Auto 88.6 % (50-75); Platelet Count 588 X10^3/uL (150-400); Red Blood Cell Count 3.37 X10^6/uL (4.0-5.2); Red Cell Distribution Width 12.8 % (11.6-14.8); White Blood Cell Count 13.5 X10^3/uL (4.5-11.0)
[2024-01-12 06:49] LABS: BUN Creatinine Ratio 31.7 (6-22); Blood Urea Nitrogen 13 mg/dL (7-17); Carbon Dioxide 24 mmol/L (22-32); Chloride 104 mmol/L (98-107); Estimated Glomerular Filt Rate > 60 mL/min (>60); Glucose 82 mg/dL (70-100); HEMOLYSIS < 15 (0-50); Potassium 3.7 mmol/L (3.4-5.1); Sodium 133 mmol/L (137-145)
[2024-01-12] MEDS: METOCLOPRAMIDE 10 MG/2 ML INJ 5 MG IV ×3 (06:49→22:21)
[2024-01-12] MEDS: metroNIDAZOLE 500 MG/100 ML PIGGYBACK 100 MG IV ×2 (06:49→16:10)
[2024-01-12] MEDS: KETOROLAC 30 MG/ML VIAL IV ×3 (06:50→22:20)
[2024-01-12] MEDS: PANTOPRAZOLE 40 MG VIAL IV ×2 (06:50→10:40)
[2024-01-12 08:00] VITALS: BP 103/56; PULSE 83; RESP 16; TEMP 36.3; O2SAT 97
[2024-01-12] MEDS: LACTATED RINGERS 1,000 ML 150 ML IV ×2 (09:36→16:12)
--- NOTE | 2024-01-12 10:16 | DIET.PN1 ---
Addendum entered by Alexandrea Gale 01/12/24 10:46: *Interventions: 1. Full liquids ordered for lunch, including ONS Original Note: Dietary Progress Note Assessment: Pt's RN reports that per surgery, pt can advance diet and have any food as tolerated. Pt reports only having ice chips this morning. Lunch order taken. Ht: 172.72 cm Wt: 72.575 kg BMI: 24.3 Last BM: 01/06/24 (01/08/24 19:02) MNA: 11 Brian Score: 21 Diet: 01/11/24 Dinner Clear Liquid Diet Diet Modifications: Nutrition Percent Meal Consumed 0% 01/12/24 09:04 Percent Meal Consumed 0% 01/11/24 18:00 Percent Meal Consumed 0% 01/10/24 18:00 Labs: RBC 3.37 X10^6/uL (4.0-5.2) L 01/12/24 05:40 Hgb 10.3 g/dL (12.0-16.0) L 01/12/24 05:40 Hct 30.4 % (36-46) L 01/12/24 05:40 Creatinine 0.41 mg/dL (0.52-1.04) L 01/12/24 05:40 Lactate 0.8 mmol/L (0.7-2.1) 01/10/24 19:35 Nutrition Diagnosis: Inadequate oral intake r/t alterations in GI tract aeb <50% average po intakes for 5 days Interventions: 1. If diet unable to be advanced, consider nutrition support 2. Will provide protein supplementation as diet advances EER: [id number] kcals (25-28 kcals/kg per BMI) 65-75 g protein (1 g/kg) Monitoring/Evaluations: diet advancement, po intakes Electronically Signed by: Alexandrea Gale 01/12/24 10:16 Clinical Dietitian [address] [address]
[2024-01-12] MEDS: ONDANSETRON 4 MG/2 ML INJ IV (10:40)
[2024-01-12] MEDS: ENOXAPARIN 40 MG/0.4 ML SYRINGE SUBCUT (10:40)
[2024-01-12 12:00] VITALS: TEMP 36.8
--- NOTE | 2024-01-12 12:35 | P.PN_ITS ---
Subjective Subjective Date Patient Seen: 01/12/24 Time Patient Seen: 12:35 Interval history: Emesis overnight now improved following a bowel movement. Exam Vital Signs (past 8 hours): - 01/12/24 07:30 01/12/24 08:00 Temperature 97.4 F L Pulse Rate 83 Respiratory Rate 16 Blood Pressure 103/56 L Pulse Oximetry 97 Oxygen Delivery Method Room Air Oxygen Flow Rate 0 Oxygen Delivery Method Room Air Oxygen Flow Rate 0 Narrative Exam Narrative: General adult woman alert oriented no acute distress Abdomen soft appropriately tender to palpation. Drain serous Objective Labs 01/12/24 05:40 01/12/24 05:40 Labs: Laboratory Results - last 24 hr 01/12/24 05:40 WBC 13.5 H RBC 3.37 L Hgb 10.3 L Hct 30.4 L MCV 90.2 MCH 30.5 MCHC 33.8 RDW 12.8 Plt Count 588 H Neut % (Auto) 88.6 H Lymph % (Auto) 4.3 L [place] % (Auto) 6.4 Eos % (Auto) 0.5 L Baso % (Auto) 0.2 Neut # (Auto) 37524 H Lymph # (Auto) 600 L [place] # (Auto) 900 Eos # (Auto) 100 Baso # (Auto) 0 Sodium 133 L Potassium 3.7 Chloride 104 Carbon Dioxide 24 BUN 13 Creatinine 0.41 L Estimated GFR > 60 BUN/Creatinine Ratio 31.7 H Glucose 82 Calcium 8.0 L PFSH Medical History UTI (urinary tract infection) Pericardial effusion PAC (premature atrial contraction) PVC's (premature ventricular contractions) Surgical History Status post tubal ligation Status post delivery Status post delivery Status post delivery Status post arthroscopy Family History Father Age: 83 Hypertension Polycystic kidney disease Grandmother Cancer Mother Age: 80 Skin melanoma Stroke Social History household members: spouse and children Smoking Status: Former smoker Tobacco: How many years used: 6 alcohol intake: current substance use type: does not use Assessment & Plan Post-op Postoperative Procedures: Procedures Operation Date: 08/02/24 19:30 Actual Procedure Side Surgeon p Laparoscopic drainage of abdominal fluid with open illeocecectomy Vlad Kim MD Postoperative status narrative: Resolved postoperative ileus. Anticipate discharge home tomorrow without drain Quality VTE Deep Vein Thrombosis/Pulmonary Embolism Present on Admission: No
[2024-01-12 18:00] VITALS: BP 110/56; PULSE 77; RESP 18; TEMP 36.8; O2SAT 100
--- NOTE | 2024-01-12 19:37 | PC.NURSE ---
Addendum entered by Aida Jin R.N. 01/12/24 19:48: Dr Shaffer notified of UOP 300mls/12hrs. See new orders. Original Note: Not wanting to take diet, did speak with RD. Not wanting to take meds. Heart briefly 100's to 110's. More tachy after she has been up. Did make MD aware and he is allowing patient choice which is understood. Given information on ileus. Did walk in room several times today. UOP remains minimal.
[2024-01-12] MEDS: SODIUM CHLORIDE 0.9% 500 ML 1000 ML IV (20:05)
[2024-01-12 21:43] VITALS: BP 110/53; PULSE 79; RESP 18; TEMP 36.6; O2SAT 98
[2024-01-12] MEDS: levoFLOXacin 750 MG/150 ML PIGGYBACK 100 MG IV (22:45)
--- NOTE | 2024-01-13 00:20 | EKG_ITS ---
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
--- NOTE | 2024-01-13 00:34 | EKG_ITS ---
[facility] [id number] [address] [place] [address] Test Date: 2024-01-13 Pat Name: Ann Patel Department: Room: 219 Gender: Female Elevated Guard: WILLOW : 1970 Requested By: Order Number: [id number] Reading MD: Daniel Coreas MD Measurements Intervals [place] Rate: 136 P: [place]: QRS: 70 QRSD: 78 T: 265 QT: 310 QTc: 466 Interpretive Statements Atrial fibrillation with rapid ventricular response Nonspecific ST and T wave abnormality Electronically Signed On 01-13-2024 7:01:23 PDT by Daniel Coreas MD
[2024-01-13] MEDS: METOPROLOL TARTRATE 5 MG/5 ML INJ IV ×2 (00:35→00:59)
--- NOTE | 2024-01-13 01:16 | DI.ECHO.S_ITS ---
Version: 1 Study ID: [id number] [place] [address] Name: SAQIB BRAY Study Date: 01/13/2024, 6: 49 AM : 1970 BP: 107 / 54 mmHg Gender: Female Height: 68 in Age: 53 Years Weight: 160 lb BSA: 1.86 mA? Ordering: ABDIRIZAK GAN MD Referring: UNSPECIFIED Clinician: Colby Brooks Reason For Study: ATRIAL FIBRILLATION History: Summary Statements Normal sinus rhythm. Normal LV size, wall thickness, wall motion and LV systolic function. EF is 55-60%. Normal chamber sizes. No valve abnormalities. There is a small circumferential pericardial effusion without tamponade. Compared to prior study in 2021, pericardial effusion is new. Procedure: A two-dimensional transthoracic echocardiogram with color flow and Doppler was performed. The study quality was technically adequate. Comparison is made with the echocardiogram of 08/29/2021. The patient was in sinus rhythm with heart rates between 79-87 bpm during the exam. Left Ventricle: The ejection fraction is estimated to be 55-60%. The left ventricle is normal in size and wall thickness. Right Ventricle: Right ventricular systolic function is mildly reduced. The right ventricle is not well visualized. Atria: The interatrial septum is not well visualized. The left atrial size is normal. Right atrium not well visualized. Mitral Valve: There is trace mitral regurgitation. There is no mitral valve stenosis. The mitral valve is normal. Aortic Valve: No aortic regurgitation is present. There is no aortic valve stenosis. The aortic valve is grossly normal. Tricuspid Valve: There is trace tricuspid regurgitation. Pulmonary artery pressures cannot be estimated because of the lack of a measurable TR jet velocity. There is no tricuspid stenosis. The tricuspid valve is not well visualized. Pulmonic Valve: There is no pulmonic valvular regurgitation. There is no pulmonic valvular stenosis. The pulmonic valve is not well visualized. Great Vessels: The ascending aorta could not be visualized. The aortic root is normal size. The inferior vena cava was not visualized. Pericardium/ Pleura: There is a small pericardial effusion noted. There is no pleural effusion. 2D and M-Mode Measurements and Calculations LVIDd: 4.2 cm LVOT diam: 2.07 cm LVIDs: 3.0 cm Ao root diam: 3.3 cm IVSd: 0.86 cm Ao Arch Diam (Prox Trans): 2.28 cm LVPWd: 0.96 cm LV arreguin. diameter/BSA (cm/m^2): 2.27 LV sys. diameter/BSA (cm/m^2): 1.59 TAPSE: 1.53 cm LA A4 area: 18.5 bell staff? LA A2 area: 14.6 bell staff? LA length (vol): 5.2 cm LA vol: 44.4 ml LA vol index: 23.9 ml/mA? Doppler Measurements and Calculations Ao V2 max: 139.9 cm/sec LVOT Max Memo: 113.0 cm/sec Ao V2 mean: 101.1 cm/sec LV V1 max P.1 mmHg Ao V2 VTI: 26.2 cm LV V1 VTI: 22.1 cm Ao max P.8 mmHg SV(LVOT): 74.1 ml Ao mean P.6 mmHg SARA(I,D): 2.8 bell staff? SARA(V,D): 2.7 bell staff? SARA indexed to BSA (cm^2/m^2): 1.52 sev ratio: 0.84 MV E max memo: 71.5 cm/sec MV dec time: 0.19 sec MV A max memo: 58.4 cm/sec MV E/A: 1.22 TR max memo: 206.6 cm/sec PA mean P.58 mmHg TR max P.1 mmHg PA V2 max: 83.6 cm/sec Dinorah Castillo M.D. Electronically signed by: Dinorah Castillo M.D. 01/13/2024, 9: 08 AM
--- NOTE | 2024-01-13 01:18 | PM.CN ---
History of Present Illness Consult details Date Patient Seen: 01/13/24 Chief complaint: ruptured appendix, sent by PCP Reason for consult: tachyarrhythmia, hypotension Requesting provider: Armani Jugn Narrative: 53 y/o with PMH of A-fib, hospitalized few days ago with appendicitis, had surgery and postop ileus with first BM earlier today. Around midnight she suddenly became tachycardic and hypotensive. After 5 mg of metoprolol iv rate decreased from ~ 200 to ~ 120-140. She does not have chest pain but can feel palpitations. Meds Home Medications and Allergies Home Medications Medication Instructions Recorded Confirmed Type metoprolol succinate 25 mg 12.5 mg PO DAILY 10/17/22 01/06/24 History tablet,extended release 24 hr triamcinolone acetonide 0.1 % 1 applic topical BID PRN face 10/17/22 01/06/24 Rx topical ointment eczema #15 grams triamcinolone acetonide 0.5 % See Rx Instructions .Route 10/17/22 01/06/24 Rx topical cream .COMPLEX #45 grams flecainide 50 mg tablet 25 mg PO BID 12/18/23 01/06/24 History Allergies Allergy/AdvReac Type Severity Reaction Status Date / Time Penicillins Allergy Intermediate Hives Verified 01/06/24 15:00 Review of Systems Constitutional Comments: w/o fever or chills Cardiovascular Comments: palpitations, w/o pain Respiratory Comments: w/o SOB Gastrointestinal Comments: had BM today, after 4-5 days mild abdominal tenderness Genitourinary Comments: w/o voiding difficulties Exam Vital Signs (past 8 hours): - 01/12/24 18:00 01/12/24 19:15 01/12/24 21:43 Temperature 98.3 F 97.9 F Pulse Rate 77 79 Respiratory Rate 18 18 Blood Pressure 110/56 L 110/53 L Pulse Oximetry 100 98 Oxygen Delivery Method Room Air Oxygen Flow Rate 0 Oxygen Delivery Method Room Air Oxygen Flow Rate 0 Const Other: in no distress, at bedside HENMT Other: normocephalic Neck Other: supple Resp Other: normal respiratory effort Cardio Other: rapid a-fib, irregularly irregular GI Other: minimally distended abdomen Skin Other: pale Neuro Other: w/o deficits Extrem Other: 1 + b/l leg swelling Psych Other: anxious Objective ECG Impression: Atrial Fibrilation with RVR Labs 01/12/24 05:40 01/12/24 05:40 Labs: Laboratory Results - last 24 hr 01/12/24 05:40 WBC 13.5 H RBC 3.37 L Hgb 10.3 L Hct 30.4 L MCV 90.2 MCH 30.5 MCHC 33.8 RDW 12.8 Plt Count 588 H Neut % (Auto) 88.6 H Lymph % (Auto) 4.3 L [place] % (Auto) 6.4 Eos % (Auto) 0.5 L Baso % (Auto) 0.2 Neut # (Auto) 69344 H Lymph # (Auto) 600 L [place] # (Auto) 900 Eos # (Auto) 100 Baso # (Auto) 0 Sodium 133 L Potassium 3.7 Chloride 104 Carbon Dioxide 24 BUN 13 Creatinine 0.41 L Estimated GFR > 60 BUN/Creatinine Ratio 31.7 H Glucose 82 Calcium 8.0 L PFSH Medical History UTI (urinary tract infection) Pericardial effusion PAC (premature atrial contraction) PVC's (premature ventricular contractions) Surgical History Status post tubal ligation Status post delivery Status post delivery Status post delivery Status post arthroscopy Family History Father Age: 84 Hypertension Polycystic kidney disease Grandmother Cancer Mother Age: 81 Skin melanoma Stroke Social History household members: spouse and children Tobacco & Substance Use Smoking Status: Former smoker Tobacco: How many years used: 6 alcohol intake: current substance use type: does not use Assessment & Plan Assessment and plan (1) Rapid atrial fibrillation: Status: Acute (2) Ruptured appendix: Status: Acute (3) Postoperative ileus: Status: Acute (4) Anemia: Status: Acute (5) Eczema: Qualifiers: Eczema type: unspecified Qualified Code(s): L30.9 - Dermatitis, unspecified Status: Acute Assessment & Plan narrative: A-fib with RVR - diagnosed with A-fib 2.5 years ago, she was cardioverted and on metoprolol for 1 year. 1.5 years ago plaster tender at [facility] added flecainide. Lately she would have palpitations on and off and her plaster tender was considering ablation if she will have difficulties with rate control. On flecainide 25 mg bid and Toprol XL 12.5 mg daily. Not anticoagulated. - she will me on telemetry - prn BB and CCB for rate control - possible poor absorption of BB and flecainide last few days, coupled with stress of surgery - KCl 40 mq po x 1 for K of 3.7 - troponin, BMP, Mg, TSH pending - echocardiogram - Xanax prn for anxiety Anemia - chronic, stable postop Appendicitis - as per surgical team Time-Based Coding :: [TOTAL MINUTES] spent with patient and on the chart (including review of chart, obtaining history, exam, reviewing outside data, placing orders, documenting exam and treatment plan, and counseling patient) on [DATE].
[2024-01-13 02:06] LABS: Blood Urea Nitrogen 12 mg/dL (7-17); Calcium 7.7 mg/dL (8.4-10.2); Carbon Dioxide 20 mmol/L (22-32); Chloride 107 mmol/L (98-107); Estimated Glomerular Filt Rate > 60 mL/min (>60); Glucose 85 mg/dL (70-100); HEMOLYSIS < 15 (0-50); Potassium 3.3 mmol/L (3.4-5.1); Sodium 133 mmol/L (137-145)
[2024-01-13 02:19] LABS: Troponin I < 0.012 ng/mL (0.01-0.034)
[2024-01-13 02:37] LABS: TSH w/ Reflex to FT4 1.52 uIU/mL (0.47-4.68)
[2024-01-13] MEDS: POTASSIUM CHLORIDE IN WATER 10 MEQ/100 ML PIGGYBACK 100 MEQ IV ×4 (02:38→05:34)
[2024-01-13 04:00] VITALS: BP 107/54; PULSE 134; RESP 18; TEMP 36.8; O2SAT 96
[2024-01-13] MEDS: LACTATED RINGERS 1,000 ML 150 ML IV (04:31)
[2024-01-13] MEDS: METOCLOPRAMIDE 10 MG/2 ML INJ 5 MG IV (04:33)
--- NOTE | 2024-01-13 05:50 | PC.NURSE ---
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
--- NOTE | 2024-01-13 07:20 | PM.PN.1 ---
Subjective Subjective Interval history: Summary: Patient was admitted with a appendicitis and had a postop ileus. History of atrial fibrillation and developed tachycardia and hypotension earlier this a.m.. Rate was controlled with 5 mg of IV metoprolol. S: She is feeling better today. A fib aborted. No issues this AM. Some nausea earlier. Exam Vital Signs (past 8 hours): - 01/13/24 04:00 Temperature 98.3 F Pulse Rate 134 H Respiratory Rate 18 Blood Pressure 107/54 L Pulse Oximetry 96 Oxygen Flow Rate 0 Oxygen Delivery Method Room Air Oxygen Flow Rate 0 Narrative Exam Narrative: NAD, alert and oriented. Fluent speech. Lungs are clear, normal rate and effort. Heart is regular, no murmur gallop or rub. Abdomen is soft, non distended. Extremities are free of edema. Objective Labs 01/12/24 05:40 01/13/24 01:30 Labs: Laboratory Results - last 24 hr 01/13/24 01:30 Sodium 133 L Potassium 3.3 L Chloride 107 Carbon Dioxide 20 L BUN 12 Creatinine 0.40 L Estimated GFR > 60 BUN/Creatinine Ratio 30.0 H Glucose 85 Calcium 7.7 L Magnesium 2.0 Troponin I < 0.012 TSH 1.52 PFSH Medical History UTI (urinary tract infection) Pericardial effusion PAC (premature atrial contraction) PVC's (premature ventricular contractions) Surgical History Status post tubal ligation Status post delivery Status post delivery Status post delivery Status post arthroscopy Family History Father Age: 84 Hypertension Polycystic kidney disease Grandmother Cancer Mother Age: 81 Skin melanoma Stroke Social History household members: spouse and children Smoking Status: Former smoker Tobacco: How many years used: 6 alcohol intake: current substance use type: does not use Assessment & Plan Assessment & Plan narrative: 1. A-fib with RVR, new and resolved. 2. Anemia, present on admission and stable. - chronic, stable postop 3. Appendicitis, present on admission and improving. - as per surgical team 4. Post op ileus, present on admission and improving. PLAN: -continue usual medications, metoprolol and flecainide. -OOB, ambulate. -advance diet LEAH 01/13, home. Time-Based Coding :: 20 min spent with patient and on the chart (including review of chart, obtaining history, exam, reviewing outside data, placing orders, documenting exam and treatment plan, and counseling patient) on 01/12. Quality VTE Deep Vein Thrombosis/Pulmonary Embolism Present on Admission: No
[2024-01-13] MEDS: metroNIDAZOLE 500 MG/100 ML PIGGYBACK 100 MG IV ×2 (08:18)
[2024-01-13 09:17] VITALS: BP 107/54; PULSE 90
[2024-01-13] MEDS: METOPROLOL ER 25 MG TABLET 12.5 MG PO (09:17)
[2024-01-13] MEDS: FLECAINIDE 100 MG TABLET 25 MG PO (09:19)
[2024-01-13] MEDS: ENOXAPARIN 40 MG/0.4 ML SYRINGE SUBCUT (09:19)
[2024-01-13] MEDS: PANTOPRAZOLE 40 MG VIAL IV (09:20)
[2024-01-13 09:50] VITALS: BP 109/56; PULSE 90
--- NOTE | 2024-01-13 13:13 | DIET.PN1 ---
Dietary Progress Note Per RN, pt was eating cream of wheat this morning. Protein supplementation sent with meals. Diet advancing as tolerated. Will continue to monitor po intakes. Ht: 172.72 cm Wt: 72.575 kg BMI: 24.3 Last BM: 01/13/24 (01/13/24 11:35) MNA: 11 Brian Score: 23 Diet: 01/11/24 Dinner Clear Liquid Diet Diet Modifications: 01/12/24 Lunch Full Liquid Diet Diet Modifications: Full ALBA May Advance Diet as Tolerated: Yes Safety Tray needed?: No Liquid consistency: Normal/Thin Nutrition Percent Meal Consumed 100% 01/13/24 11:33 Percent Meal Consumed 0% 01/12/24 09:04 Percent Meal Consumed 0% 01/11/24 18:00 Labs: RBC 3.37 X10^6/uL (4.0-5.2) L 01/12/24 05:40 Hgb 10.3 g/dL (12.0-16.0) L 01/12/24 05:40 Hct 30.4 % (36-46) L 01/12/24 05:40 Creatinine 0.40 mg/dL (0.52-1.04) L 01/13/24 01:30 Lactate 0.8 mmol/L (0.7-2.1) 01/10/24 19:35 Electronically Signed by: Alexandrea Gale 01/13/24 13:13 Clinical Dietitian [address] [address]
[2024-01-13] MEDS: KETOROLAC 30 MG/ML VIAL IV (14:34)
--- NOTE | 2024-01-13 15:52 | PM.PNPO.1 ---
Subjective Subjective Date Patient Seen: 01/13/24 Time Patient Seen: 15:52 Interval history: SVT and AFib with RVR overnight. Currently in sinus rhythm. Tolerating liquid. Exam Vital Signs (past 8 hours): - 01/13/24 09:17 01/13/24 09:50 Pulse Rate 90 90 Blood Pressure 107/54 L 109/56 L Oxygen Delivery Method Room Air Oxygen Flow Rate 0 Narrative Exam Narrative: General adult woman alert oriented no acute distress Abdomen soft appropriately tender to palpation. Surgical drain serous. Objective Labs 01/12/24 05:40 01/13/24 01:30 Labs: Laboratory Results - last 24 hr 01/13/24 01:30 Sodium 133 L Potassium 3.3 L Chloride 107 Carbon Dioxide 20 L BUN 12 Creatinine 0.40 L Estimated GFR > 60 BUN/Creatinine Ratio 30.0 H Glucose 85 Calcium 7.7 L Magnesium 2.0 Troponin I < 0.012 TSH 1.52 PFSH Medical History UTI (urinary tract infection) Pericardial effusion PAC (premature atrial contraction) PVC's (premature ventricular contractions) Surgical History Status post tubal ligation Status post delivery Status post delivery Status post delivery Status post arthroscopy Family History Father Age: 84 Hypertension Polycystic kidney disease Grandmother Cancer Mother Age: 81 Skin melanoma Stroke Social History household members: spouse and children Smoking Status: Former smoker Tobacco: How many years used: 6 alcohol intake: current substance use type: does not use Assessment & Plan Post-op Postoperative Procedures: Procedures Operation Date: 01/08/24 19:30 Actual Procedure Side Surgeon p Laparoscopic drainage of abdominal fluid with open illeocecectomy Vlad Kim MD Postoperative status narrative: -Medicine recommendations appreciated. Continue metoprolol and flecainide. -ileus resolving continue full liquid diet until completely resolved - Postoperative plan: routine post-op care Quality VTE Deep Vein Thrombosis/Pulmonary Embolism Present on Admission: No
[2024-01-13] MEDS: metroNIDAZOLE 500 MG TABLET PO (15:58)
--- NOTE | 2024-01-13 18:13 | PC.NURSE ---
shift note: IV fluids dc'd per order MD. Diet advanced to general, tolerating small amounts. antibiotics switched to oral from IV. Has remained in sinus rhythm throughout this shift. Denies pain, has ambulated in the hallway several times. LORNA drainage has diminished over the day, puffiness noted to left arm and hand and left leg > right. Encouraged pt to elevate L arm while in bed.
[2024-01-13 19:00] VITALS: BP 112/58; PULSE 78; RESP 20; TEMP 36.4; O2SAT 98
[2024-01-13] MEDS: levoFLOXacin 250 MG TABLET 750 MG PO (20:45)
[2024-01-14 00:36] VITALS: BP 107/54; PULSE 89; RESP 18; TEMP 36.6; O2SAT 98
[2024-01-14] MEDS: metroNIDAZOLE 500 MG TABLET PO ×2 (00:36→08:32)
[2024-01-14] MEDS: PANTOPRAZOLE DR 40 MG TABLET PO (06:03)
[2024-01-14 06:33] LABS: Hematocrit 27.8 % (36-46); Hemoglobin 9.5 g/dL (12.0-16.0); Mean Corpuscular HGB Conc 34.1 % (30-36); Mean Corpuscular Hemoglobin 30.7 PG (26-34); Mean Corpuscular Volume 90.2 fL (80-100); Platelet Count 550 X10^3/uL (150-400); Red Blood Cell Count 3.08 X10^6/uL (4.0-5.2); White Blood Cell Count 10.1 X10^3/uL (4.5-11.0)
[2024-01-14 06:46] LABS: Blood Urea Nitrogen 8 mg/dL (7-17); Calcium 7.5 mg/dL (8.4-10.2); Carbon Dioxide 22 mmol/L (22-32); Chloride 104 mmol/L (98-107); Estimated Glomerular Filt Rate > 60 mL/min (>60); Glucose 75 mg/dL (70-100); HEMOLYSIS < 15 (0-50); Potassium 3.5 mmol/L (3.4-5.1); Sodium 131 mmol/L (137-145)
[2024-01-14 07:00] VITALS: BP 117/64; PULSE 85; RESP 18; TEMP 36.9; O2SAT 97
[2024-01-14] MEDS: METOPROLOL ER 25 MG TABLET 12.5 MG PO (08:32)
[2024-01-14] MEDS: ENOXAPARIN 40 MG/0.4 ML SYRINGE SUBCUT (08:33)
[2024-01-14 09:46] VITALS: BP 115/58; PULSE 87; RESP 16; TEMP 36.7; O2SAT 97
--- NOTE | 2024-01-14 10:06 | PM.PN.1 ---
Subjective Subjective Interval history: Summary: She was doing well. Surgery is going to pull her abdominal drain. She remained in sinus rhythm overnight. She was going to be discharged by surgery today. Subjective: Less abdominal pain. Good ambulation. Ready to discharge home. Exam Vital Signs (past 8 hours): - 01/14/24 07:00 01/14/24 09:46 Temperature 98.5 F 98.1 F Pulse Rate 85 87 Respiratory Rate 18 16 Blood Pressure 117/64 115/58 L Pulse Oximetry 97 97 Oxygen Delivery Method Room Air Oxygen Flow Rate 0 Narrative Exam Narrative: Doing well, breathing easily with normal effort. Her abdomen is nondistended, drain has clear drainage. 2+ leg edema. Objective Labs 01/14/24 05:50 01/14/24 05:50 Labs: Laboratory Results - last 24 hr 01/14/24 05:50 WBC 10.1 RBC 3.08 L Hgb 9.5 L Hct 27.8 L MCV 90.2 MCH 30.7 MCHC 34.1 RDW 13.0 Plt Count 550 H Sodium 131 L Potassium 3.5 Chloride 104 Carbon Dioxide 22 BUN 8 Creatinine 0.40 L Estimated GFR > 60 BUN/Creatinine Ratio 20.0 Glucose 75 Calcium 7.5 L PFSH Medical History UTI (urinary tract infection) Pericardial effusion PAC (premature atrial contraction) PVC's (premature ventricular contractions) Surgical History Status post tubal ligation Status post delivery Status post delivery Status post delivery Status post arthroscopy Family History Father Age: 84 Hypertension Polycystic kidney disease Grandmother Cancer Mother Age: 81 Skin melanoma Stroke Social History household members: spouse and children Smoking Status: Former smoker Tobacco: How many years used: 6 alcohol intake: current substance use type: does not use Assessment & Plan Assessment & Plan narrative: 1. Atrial fibrillation with rapid response, resolved. 2. Anemia, stable. 3. Postoperative ileus, improved. 4. Leg edema, active and improving. PLAN: -discharge home with no change to chronic medications. Time-Based Coding :: 15 min spent with patient and on the chart (including review of chart, obtaining history, exam, reviewing outside data, placing orders, documenting exam and treatment plan, and counseling patient) on 01/13. Quality VTE Deep Vein Thrombosis/Pulmonary Embolism Present on Admission: No
--- NOTE | 2024-01-14 10:06 | PM.DS.1 ---
History of Present Illness History of Present Illness Date Patient Seen: 01/15/24 Chief complaint: ruptured appendix, sent by PCP Narrative: 53-year-old woman who was at home for 2 weeks with abdominal pain presents to the hospital found to have ruptured appendicitis with abscess. Discharge Providers Provider Date of admission: 01/06/24 18:02 Discharge Date: 01/14/24 Primary care physician: Ann Gray DO Consults: 01/09/24 10:25 Consult to Physical Therapy Evaluate & Treat Comment: Physician Instructions: Evaluate and Treat 01/13/24 00:55 Consult to Hospitalist Service Routine Comment: Consulting Provider: Dragan Balderas Reason for consultation: SVT Discharge provider: Vlad Kim MD Summary Hospital Course Discharge Diagnosis: Appendicitis with abscess Atrial fibrillation Supraventricular tachycardia Hospital Course: Patient was initially admitted to the hospital for non operative management of acute appendicitis with abscess. Multiple attempts were made to transfer her to a facility with Interventional Radiology Service but this was unsuccessful. She had worsening abdominal pain and therefore was taken to the operating room where she underwent a open ileocecectomy performed January 08, 2024. There was a large abscess within the right pelvis and the cecum was necrotic. She had a prolonged postoperative ileus which ultimately resolved. She had an episode of hypotension with SVT and atrial fibrillation there was consultation with Medicine Service. Ultimately her rhythm normalized with IV beta blockade. At the time of discharge her pain is well controlled with oral medication she is ambulatory and tolerant of a diet Exam Vital Signs (past 8 hours): - 01/14/24 07:00 01/14/24 09:46 Temperature 98.5 F 98.1 F Pulse Rate 85 87 Respiratory Rate 18 16 Blood Pressure 117/64 115/58 L Pulse Oximetry 97 97 Oxygen Delivery Method Room Air Oxygen Flow Rate 0 Narrative Exam Narrative: General adult woman alert oriented no acute distress Chest nonlabored respiration Abdomen midline incision is clean dry intact with gela. Surgical drain has been removed. Objective Labs 01/14/24 05:50 01/14/24 05:50 Labs: Laboratory Results - last 24 hr 01/14/24 05:50 WBC 10.1 RBC 3.08 L Hgb 9.5 L Hct 27.8 L MCV 90.2 MCH 30.7 MCHC 34.1 RDW 13.0 Plt Count 550 H Sodium 131 L Potassium 3.5 Chloride 104 Carbon Dioxide 22 BUN 8 Creatinine 0.40 L Estimated GFR > 60 BUN/Creatinine Ratio 20.0 Glucose 75 Calcium 7.5 L PFSH Medical History UTI (urinary tract infection) Pericardial effusion PAC (premature atrial contraction) PVC's (premature ventricular contractions) Surgical History Status post tubal ligation Status post delivery Status post delivery Status post delivery Status post arthroscopy Family History Father Age: 84 Hypertension Polycystic kidney disease Grandmother Cancer Mother Age: 81 Skin melanoma Stroke Social History household members: spouse and children Smoking Status: Former smoker Tobacco: How many years used: 6 alcohol intake: current substance use type: does not use Discharge Plan Discharge Plan Patient Disposition: Home Provider Discharge Comment: -OK to shower -Gauze dressing to midline incision as needed -No lifting >10 lbs x 3 weeks -Walking only for exercise -Follow up surgical clinic next or Thursday, office will contact you -Diet as tolerated Discharge orders & Medications Prescriptions: New acetaminophen 500 mg capsule 1,000 mg PO Q6H PRN (Reason: pain) Qty: 60 0RF ibuprofen 200 mg tablet 400 mg PO Q6H Qty: 60 0RF Continued metoprolol succinate 25 mg tablet extended release 24 hr 12.5 mg PO DAILY triamcinolone acetonide 0.5 % cream See Rx Instructions .ROUTE .COMPLEX Qty: 45 0RF Dose Instruction: APPLY TOPICALLY TWICE DAILY Rx Instructions: APPLY TOPICALLY TWICE DAILY triamcinolone acetonide 0.1 % ointment 1 applic topical BID PRN (Reason: face eczema) Qty: 15 1RF Rx Instructions: use twice a day for 3-7 days then hold for at least 7 days, repeat if needed flecainide 50 mg tablet 25 mg PO BID Follow up/Referrals: Vlad Kim MD [Physician] - Diet/Activity/Treatments Diet: Diet as Tolerated Skin/Wound/Dressing Care Report to your healthcare provider any signs of infection, such as:: chills, fever, increased pain, unusual drainage and unusual redness Visit Report/Discharge Packet Instructions: Ileus, DI for an Appendectomy, DI for Hyponatremia, [facility]: Wound Care Stand Alone Forms: Patient Portal/API, Stroke Signs & Symptoms Discharge Data Primary Care Provider: Ann Gray VTE Deep Vein Thrombosis/Pulmonary Embolism Present on Admission: No
--- NOTE | 2024-01-14 10:34 | CM.DPC ---
DCP Cont. Reviewed EMR and team rounds for status updates. Pt has been medically cleared for home d/c, her will be transporting her home later this morning. No further DCP needs indicated at this time.
--- NOTE | 2024-01-14 12:25 | PC.NURSE ---
Patient is A&OX4, VSS, afebrile on RA. She reports pain well controlled to abdomen this a.m. and is able to get up and ambulate to for a BM. She has BLE+2 edema. She denies SOB. Abdomen is soft and slightly tender. LORNA drain draining serosanguineous liquid(100cc). Per MD Kim who is at bedside this a.m. clearing patient for discharge home. Drain dc'd and dressing changed to abdomen. Pierre c/d/i w/o surrounding redness. Patient dresses herself. She verbalizes understanding of medications, site care, s/sx of infection and follow up appointment with MD Kim next week. She is escorted via w/ch by HEAD UP OPERATOR HELPER to private vehicle with this a.m. for discharge home at noon today.
== END 2024-01-14 12:05 | disposition home or self-care (01) | DRG 330 ==
LOC: ED 17:57 → AC 18:03
PROVIDERS: Hospitalist; Internal Medicine; Surgery; Admitting Provider Surgery; Emergency Provider Emergency Medicine; PCP Family Medicine; Referring Provider Emergency Medicine; Visit Provider Surgery
PROC: 0DTJ4ZZ Resection of Appendix, Percutaneous Endoscopic Approach (ICD-10-PCS; CPT 44970; principal; 2024-01-08 19:30)
DX: K35.33 Acute appendicitis with perforation, localized peritonitis, and gangrene, with abscess (principal); I47.10 Supraventricular tachycardia, unspecified; K56.7 Ileus, unspecified; K91.89 Other postprocedural complications and disorders of digestive system; R50.9 Fever, unspecified; R10.31 Right lower quadrant pain; I48.91 Unspecified atrial fibrillation; L30.9 Dermatitis, unspecified; D64.9 Anemia, unspecified; I95.9 Hypotension, unspecified; R60.0 Localized edema; Z87.891 Personal history of nicotine dependence
CPT/HCPCS: 36415; 44160; 74018; 74177; 76705; 80048; 80053; 81003; 81015; 83605; 83690; 83735; 84145; 84443; 84484; 85025; 85027; 85610; 85730; 87040; 87086; 87635; 93005; 93010; 93306; 96365; 97116; 97161; 97530; 99222; 99284; 99285; J1100; J1170; J1650; J1885; J1956; J2250; J2405; J2470; J2704; J2765; J3010; Q9967

== ENCOUNTER 2024-01-16 13:40 | Inpatient (IN) | payer BC, SELFPAY ==
[2024-01-06 21:39] VITALS: BMI 24.3
[2024-01-16] VITALS (10 sets, daily range): BP systolic 108–127; BP diastolic 57–66; PULSE 67–80; RESP 16–18; TEMP 36.5–37.1; O2SAT 97–100; BMI 26.6
--- NOTE | 2024-01-16 14:03 | ED.GENADULT ---
HPI - General Adult General Chief complaint: Abdominal Pain Stated complaint: post op appendix surgery, N/V/D, weakness Time Seen by Provider: 01/16/24 13:55 Source: patient Mode of arrival: Wheelchair Limitations: no limitations History of Present Illness HPI narrative: Patient is a 53-year-old female. Was recently admitted to the hospital for extended stay for ruptured appendicitis and abscess. This required surgical intervention to include an open appendectomy and drain placement. During her hospital stay she did have an episode of AFib with RVR and ?SVT? she also had a postoperative course complicated by an ileus. She was discharged from the hospital approximately 48 hours ago. She stated that she still was not back to normal when she was discharged but she felt like she was grieving. She was tolerating oral intake. She had appetite. She states she has not passed flatus in approximately 1 week. Yesterday she stated that she started have profuse watery diarrhea. Multiple episodes of this. Nonbloody. Some nausea but no vomiting. No fevers. No problems urinating. Today was unable to eat. Also feeling like her abdomen is distended. She has lower extremity edema that she states has been present since she was in the hospital. Related Data Home Medications Medication Instructions Recorded Confirmed metoprolol succinate 25 mg 12.5 mg PO DAILY 10/17/22 01/16/24 tablet,extended release 24 hr flecainide 50 mg tablet 25 mg PO BID 12/18/23 01/16/24 Lactobacillus acidophilus 250 500 mmu cells PO DAILY 01/16/24 01/16/24 million cell capsule (Probiotic Acidophilus) Previous Rx's Medication Instructions Recorded triamcinolone acetonide 0.1 % 1 applic topical BID PRN face 10/17/22 topical ointment eczema #15 grams triamcinolone acetonide 0.5 % See Rx Instructions .Route 10/17/22 topical cream .COMPLEX #45 grams acetaminophen 500 mg capsule 1,000 mg (2 x 500 mg) PO Q6H PRN 01/14/24 pain #60 caps ibuprofen 200 mg tablet 400 mg (2 x 200 mg) PO Q6H #60 tabs 01/14/24 Allergies Allergy/AdvReac Type Severity Reaction Status Date / Time Penicillins AdvReac Intermediate Hives Verified 01/16/24 13:46 Review of Systems Review of Systems ROS Unobtainable: All systems reviewed & are unremarkable except as noted in HPI and below Patient History Medical History UTI (urinary tract infection) Pericardial effusion PAC (premature atrial contraction) PVC's (premature ventricular contractions) Surgical History Status post tubal ligation Status post delivery Status post delivery Status post delivery Status post arthroscopy Family History Father Age: 84 Hypertension Polycystic kidney disease Grandmother Cancer Mother Age: 81 Skin melanoma Stroke Social History household members: spouse and children Smoking Status: Former smoker Tobacco: How many years used: 6 alcohol intake: current substance use type: does not use Smoking Status: Former smoker alcohol intake frequency: 0-2 drinks per day Substance Use Type: does not use Exam Initial Vital Signs Initial Vital Signs: Vital Signs Temperature 97.7 F 01/16/24 13:46 Pulse Rate 79 01/16/24 13:46 Respiratory Rate 18 01/16/24 13:46 Blood Pressure 116/59 L 01/16/24 13:46 Pulse Oximetry 98 01/16/24 13:46 Oxygen Delivery Method Room Air 01/16/24 13:46 Const General: cooperative and No ill appearing HENMT Head: normal to inspection and normocephalic Resp Effort & Inspection: normal respiratory effort Auscultation: clear to auscultation bilaterally Cardio Rate: regular rate Rhythm: regular rhythm GI Inspection: distended Palpation: firm, No guarding, No rigid and tender Skin General: no rashes or lesions noted Neuro General: patient alert and patient awake Extrem General: capillary refill normal and edema Course Orders Ordered: ED Orders 01/16/24 14:05 CT abdomen pelvis w con Stat 01/16/24 14:07 Complete Blood Count AUTO DIFF Stat Comprehensive Metabolic Panel Stat Lactate (Lactic Acid) Stat Lipase Stat 01/16/24 15:10 Blood Culture Stat 01/16/24 15:46 Education, smoking cessation ONGOING 01/16/24 15:50 Consult to Physician Routine 01/17/24 05:00 Basic Metabolic Panel Routine Complete Blood Count AUTO DIFF DAILY NT-proBNP (BNP-Adult 18+) DAILY Acetaminophen (Acetaminophen 325 Mg Tablet) 650 mg PO Q6H PRN PRN Reason: Fever/Mild Pain (1-3) Enoxaparin Sodium (Enoxaparin 40 Mg/0.4 Ml Syringe) 40 mg SUBCUT DAILY AUGUST Sodium Chloride (Normal Saline 0.9%) 1,000 mls @ 125 mls/hr IV CONT AUGUST Last Admin: 01/16/24 14:31 Dose: 125 mls/hr Documented By: MARTY Dextrose/Sodium Chloride (Dextrose 5%-0.45% Ns) 1,000 mls @ 150 mls/hr IV CONT AUGUST Ibuprofen (Ibuprofen 600 Mg Tablet) 600 mg PO Q6H PRN PRN Reason: Fever/Mild Pain (1-3) Naloxone HCl (Naloxone 0.4 Mg/Ml Vial) 0.2 mg IV Q2MIN PRN PRN Reason: Opiate Reversal Ondansetron HCl (Ondansetron 4 Mg/2 Ml Inj) 4 mg IV Q8HR PRN PRN Reason: Nausea And Vomiting Oxycodone HCl (Oxycodone Ir 5 Mg Tablet) 5 mg PO Q3H PRN PRN Reason: Pain, Moderate (4-6) Pantoprazole Sodium (Pantoprazole Dr 20 Mg Tablet) 20 mg PO 0600 [facility] Discontinued Medications Pantoprazole Sodium (Pantoprazole 40 Mg Vial) 40 mg IV NOW ONE Stop: 01/16/24 14:24 Last Admin: 01/16/24 14:31 Dose: 40 mg Documented By: MARTY Scopolamine (Scopolamine 1 Patch) 1 patch TOP NOW ONE Stop: 01/16/24 15:52 Vital Signs Vital signs: Vital Signs - 8 hr 01/16/24 13:46 01/16/24 14:26 01/16/24 14:26 Temperature 97.7 F Pulse Rate 79 73 Respiratory Rate 18 Blood Pressure 116/59 L 127/58 L Pulse Oximetry 98 100 Oxygen Delivery Method Room Air 01/16/24 14:30 01/16/24 14:30 01/16/24 15:00 Temperature Pulse Rate 71 68 Respiratory Rate Blood Pressure 118/58 L Pulse Oximetry 100 100 Oxygen Delivery Method 01/16/24 15:00 01/16/24 15:30 01/16/24 15:30 Temperature Pulse Rate 69 Respiratory Rate Blood Pressure 121/66 111/60 Pulse Oximetry 100 Oxygen Delivery Method Room Air Medical Decision Making Medical Records Medical records reviewed: Yes I reviewed the patient's medical records. Lab Data Lab results reviewed: Yes I reviewed the patient's lab results. 01/16/24 14:07 01/16/24 14:07 Labs: Lab Results 01/16/24 Range/Units 14:07 WBC 11.2 H (4.5-11.0) X10^3/uL RBC 4.02 (4.0-5.2) X10^6/uL Hgb 12.1 (12.0-16.0) g/dL Hct 36.1 (36-46) % MCV 89.8 (80-100) fL MCH 30.0 (26-34) PG MCHC 33.5 (30-36) % RDW 13.7 (11.6-14.8) % Plt Count 724 H (150-400) X10^3/uL Neut % (Auto) 83.2 H (50-75) % Lymph % (Auto) 9.2 L (25-40) % Upton % (Auto) 6.5 (3-14) % Eos % (Auto) 0.6 L (2-4) % Baso % (Auto) 0.5 (0-2) % Neut # (Auto) 9300 H (5472-4341) /uL Lymph # (Auto) 1000 L (3624-0158) /uL Upton # (Auto) 700 (0-900) /uL Eos # (Auto) 100 (0-450) /uL Baso # (Auto) 100 (0-100) /uL Sodium 136 L (137-145) mmol/L Potassium 3.2 L (3.4-5.1) mmol/L Chloride 106 (98-107) mmol/L Carbon Dioxide 25 (22-32) mmol/L BUN 3 L (7-17) mg/dL Creatinine 0.45 L (0.52-1.04) mg/dL Estimated GFR > 60 (>60) mL/min BUN/Creatinine Ratio 6.7 (6-22) Glucose 107 H (70-100) mg/dL Lactate 1.2 (0.7-2.1) mmol/L Calcium 8.5 (8.4-10.2) mg/dL Total Bilirubin 0.6 (0.2-1.3) mg/dL AST 42 H (14-36) IU/L ALT 25 (<35) IU/L Alkaline Phosphatase 66 (38-126) U/L Total Protein 6.2 L (6.3-8.2) g/dL Albumin 3.0 L (3.5-5.0) g/dL Globulin 3.2 (1.7-4.1) g/dL Albumin/Globulin Ratio 0.9 L (1.0-2.8) Lipase 312 H D (23-300) U/L Imaging Data CT scan - abdomen/pelvis: Radiologist's Impression: PROCEDURE: CT ABDOMEN PELVIS W CON INDICATIONS: Recent open lap for ruptured appendix with abscess TECHNIQUE: After the administration of intravenous contrast, axial sections acquired from the lung bases to the pubic symphysis. Coronal and sagittal reformats were performed. For radiation dose reduction, the following was used: automated exposure control, adjustment of mA and/or kV according to patient size. COMPARISON: [facility], CT, CT ABDOMEN PELVIS W CON, 01/06/2024, 10:34. FINDINGS: Image quality: Diagnostic. Lower Chest: Bilateral pleural effusions. There is also small pericardial effusion. ABDOMEN: Liver: No solid mass. Numerous simple cysts in the similar distribution to prior. Gallbladder: Not definitively identified and likely surgically absent.. Biliary ducts: No biliary dilation. Pancreas: No ductal dilation. Spleen: Size is within normal limits. Adrenal Glands: No adrenal nodules. Kidneys and Ureters: No hydronephrosis. No solid mass. No complex renal cystic lesion which requires follow up. Stomach and Bowel: Normal colonic caliber, without significant wall thickening. Multiple dilated and distended loops of small bowel are seen within the abdomen measuring up to 5.1 cm, with air-fluid levels throughout. There is no discrete transition point Postsurgical changes of the cecum. Peritoneum: No free intraperitoneal air other free fluid is present within the pelvis. Ventral Wall: No significant ventral hernia. Abdominal Nodes: No retroperitoneal or mesenteric adenopathy by size criteria. Vessels: Aorta and inferior vena cava are normal in size. PELVIS: Pelvic Organs: Unremarkable. Bladder: No bladder wall thickening, accounting for underdistention. Pelvic Nodes: No enlarged lymph nodes. Miscellaneous: No inguinal hernias are seen. Bones: No aggressive osseous abnormality. IMPRESSION: 1. Findings most consistent with small bowel ileus without distinct transition point. 2. Pelvic free fluid and bilateral pleural effusions, which may be postoperative, however a component of pericardial effusion is also present and explained by recent surgery. MDM Narrative Medical decision making narrative: Leukocytosis is improving. CT scan does show signs of a ileus which does correspond to her presentation today. No signs of overt obstructions. She does have lower extremity edema. Did discuss the case with Dr. Hawk on-call for General surgery who will admit the patient for further evaluation. She was like medicine consulted as well for her other medical issues. I discuss the findings of the CT scan with the patient and her . Discussed the need for admission. They expressed understanding and agreement with the plan. Discharge Plan Departure Patient Disposition: Admitted As Inpatient Clinical Impression: Postoperative ileus Admit Date/Time: 01/16/24 15:55 Admit Provider: Marcela Hawk
[2024-01-16 14:15] LABS: Add Manual Diff / Slide Review NO; Basophils Absolute Auto 100 /uL (0-100); Basophils Percent Auto 0.5 % (0-2); Eosinophils Absolute Auto 100 /uL (0-450); Eosinophils Percent Auto 0.6 % (2-4); Hematocrit 36.1 % (36-46); Hemoglobin 12.1 g/dL (12.0-16.0); Lymphocytes Absolute Auto 1000 /uL (1100-4500); Lymphocytes Percent Auto 9.2 % (25-40); Mean Corpuscular HGB Conc 33.5 % (30-36); Mean Corpuscular Volume 89.8 fL (80-100); Monocytes Absolute Auto 700 /uL (0-900); Monocytes Percent Auto 6.5 % (3-14); Neutrophils Absolute Auto 9300 /uL (1500-7000); Neutrophils Percent Auto 83.2 % (50-75); Platelet Count 724 X10^3/uL (150-400); Red Blood Cell Count 4.02 X10^6/uL (4.0-5.2); Red Cell Distribution Width 13.7 % (11.6-14.8); White Blood Cell Count 11.2 X10^3/uL (4.5-11.0)
[2024-01-16 14:28] LABS: Alanine Aminotransferase 25 IU/L (<35); Albumin Globulin Ratio 0.9 (1.0-2.8); Alkaline Phosphatase 66 U/L (38-126); Aspartate Aminotransferase 42 IU/L (14-36); BUN Creatinine Ratio 6.7 (6-22); Bilirubin Total 0.6 mg/dL (0.2-1.3); Blood Urea Nitrogen 3 mg/dL (7-17); Calcium 8.5 mg/dL (8.4-10.2); Carbon Dioxide 25 mmol/L (22-32); Chloride 106 mmol/L (98-107); Estimated Glomerular Filt Rate > 60 mL/min (>60); Globulin 3.2 g/dL (1.7-4.1); Glucose 107 mg/dL (70-100); HEMOLYSIS 32 (0-50); Lactate (Lactic Acid) 1.2 mmol/L (0.7-2.1); Lipase 312 U/L (23-300); Potassium 3.2 mmol/L (3.4-5.1); Sodium 136 mmol/L (137-145); Total Protein 6.2 g/dL (6.3-8.2)
[2024-01-16] MEDS: PANTOPRAZOLE 40 MG VIAL IV (14:31)
[2024-01-16] MEDS: SODIUM CHLORIDE 0.9% 1,000 ML 125 ML IV (14:31)
--- NOTE | 2024-01-16 17:05 | PM.CN ---
History of Present Illness Consult details Date Patient Seen: 01/16/24 Time Patient Seen: 17:20 Chief complaint: post op appendix surgery, N/V/D, weakness Narrative: 53-year-old woman under the primary care of Dr. Megan Gray was hospitalized at [facility] 01/06/2024 through 01/14/2024 for acute ruptured appendicitis and intra-abdominal abscess, status post open ileocecectomy on 01/08/2024, presents back to the hospital with nausea, vomiting, diarrhea and weakness. Pain had been going on for 2 weeks, treated with antibiotics at home for possible UTI. Surgery was delayed in attempts to transfer her to another facility for interventional radiologic percutaneous drainage, ultimately unsuccessful and surgery was performed. Operative findings were notable for a large abscess within the right pelvis and necrotic cecum. While she was in the hospital she had a prolonged postoperative ileus which ultimately resolved. She also had an episode of hypotension with SVT and atrial fibrillation, converting to sinus rhythm with IV beta-blockers. An echocardiogram performed on 01/13/2024 noted a small circumferential pericardial effusion. CT imaging on this admission notes small bilateral pleural effusions as well as a small pericardial effusion. She reports she is nauseated without vomiting, and has not passed flatus today and has pure liquid diarrhea without gas. No chest pain, shortness of breath, palpitations or symptoms of recurrent atrial fibrillation. She notes that SVT on her recent hospitalization was much more symptomatic than her usual atrial fibrillation Meds Home Medications and Allergies Home Medications Medication Instructions Recorded Confirmed Type metoprolol succinate 25 mg 12.5 mg PO DAILY 10/17/22 01/16/24 History tablet,extended release 24 hr triamcinolone acetonide 0.1 % 1 applic topical BID PRN face 10/17/22 01/16/24 Rx topical ointment eczema #15 grams triamcinolone acetonide 0.5 % See Rx Instructions .Route 10/17/22 01/16/24 Rx topical cream .COMPLEX #45 grams flecainide 50 mg tablet 25 mg PO BID 12/18/23 01/16/24 History acetaminophen 500 mg capsule 1,000 mg (2 x 500 mg) PO Q6H PRN 01/14/24 01/16/24 Rx pain #60 caps ibuprofen 200 mg tablet 400 mg (2 x 200 mg) PO Q6H #60 tabs 01/14/24 01/16/24 Rx Lactobacillus acidophilus 250 500 mmu cells PO DAILY 01/16/24 01/16/24 History million cell capsule (Probiotic Acidophilus) Allergies Allergy/AdvReac Type Severity Reaction Status Date / Time Penicillins AdvReac Intermediate Hives Verified 01/16/24 13:46 Review of Systems Review of Systems ROS: Yes All systems reviewed with the patient and are negative except as otherwise documented Exam Vital Signs (past 8 hours): - 01/16/24 13:46 01/16/24 14:26 01/16/24 14:26 Temperature 97.7 F Pulse Rate 79 73 Respiratory Rate 18 Blood Pressure 116/59 L 127/58 L Pulse Oximetry 98 100 Oxygen Delivery Method Room Air 01/16/24 14:30 01/16/24 14:30 01/16/24 15:00 Temperature Pulse Rate 71 68 Respiratory Rate Blood Pressure 118/58 L Pulse Oximetry 100 100 Oxygen Delivery Method 01/16/24 15:00 01/16/24 15:30 01/16/24 15:30 Temperature Pulse Rate 69 Respiratory Rate Blood Pressure 121/66 111/60 Pulse Oximetry 100 Oxygen Delivery Method Room Air 01/16/24 16:00 01/16/24 16:00 01/16/24 16:30 Temperature Pulse Rate 67 Respiratory Rate Blood Pressure 113/60 114/62 Pulse Oximetry 100 Oxygen Delivery Method 01/16/24 16:30 01/16/24 16:39 Temperature 98.8 F Pulse Rate 69 Respiratory Rate Blood Pressure Pulse Oximetry 99 Oxygen Delivery Method Oxygen Delivery Method Room Air Narrative Exam Narrative: GENERAL: This is a well-nourished, well-developed patient, in no apparent distress. EYES: Pupils equal round and reactive. Extraocular motions intact. No scleral icterus. No injection or drainage. ENT: Mucous membranes pink and moist. NECK: Trachea midline. No JVD, bruits or lymphadenopathy. Supple, nontender, no meningeal signs. CARDIOVASCULAR: Regular rate and rhythm without murmurs, gallops, or rubs. RESPIRATORY: Clear to auscultation. GASTROINTESTINAL: Mildly tender, no guarding or rebound tenderness, markedly distended, absent bowel tones. EXTREMITIES: 1+ edema. BACK: Nontender without deformity or crepitance. No flank tenderness. NEUROLOGIC: Alert, oriented, speech fluent, full upper and lower motor strength, no focal deficits evident. DERMATOLOGIC: No rashes or skin lesions. Objective Imaging Echocardiogram 01/13/2024:: Radiologist's impression: Normal sinus rhythm. Normal LV size, wall thickness, wall motion and LV systolic function. EF is 55-60%. Normal chamber sizes. No valve abnormalities. There is a small circumferential pericardial effusion without tamponade. Compared to prior study in 2021, pericardial effusion is new. Abdomen pelvis CT 01/16/2024:: Radiologist's impression: 1. Findings most consistent with small bowel ileus without distinct transition point. 2. Pelvic free fluid and bilateral pleural effusions, which may be postoperative, however a component of pericardial effusion is also present and explained by recent surgery. Labs 01/16/24 14:07 01/16/24 14:07 Labs: Laboratory Results - last 24 hr 01/16/24 14:07 WBC 11.2 H RBC 4.02 Hgb 12.1 Hct 36.1 MCV 89.8 MCH 30.0 MCHC 33.5 RDW 13.7 Plt Count 724 H Neut % (Auto) 83.2 H Lymph % (Auto) 9.2 L [place] % (Auto) 6.5 Eos % (Auto) 0.6 L Baso % (Auto) 0.5 Neut # (Auto) 9300 H Lymph # (Auto) 1000 L [place] # (Auto) 700 Eos # (Auto) 100 Baso # (Auto) 100 Sodium 136 L Potassium 3.2 L Chloride 106 Carbon Dioxide 25 BUN 3 L Creatinine 0.45 L Estimated GFR > 60 BUN/Creatinine Ratio 6.7 Glucose 107 H Lactate 1.2 Calcium 8.5 Total Bilirubin 0.6 AST 42 H ALT 25 Alkaline Phosphatase 66 Total Protein 6.2 L Albumin 3.0 L Globulin 3.2 Albumin/Globulin Ratio 0.9 L Lipase 312 H D [facility] Medical History UTI (urinary tract infection) Pericardial effusion PAC (premature atrial contraction) PVC's (premature ventricular contractions) Surgical History Status post tubal ligation Status post delivery Status post delivery Status post delivery Status post arthroscopy Family History Father Age: 84 Hypertension Polycystic kidney disease Grandmother Cancer Mother Age: 81 Skin melanoma Stroke Social History household members: spouse and children Tobacco & Substance Use Smoking Status: Former smoker Tobacco: How many years used: 6 alcohol intake: current substance use type: does not use Assessment & Plan Assessment & Plan narrative: 1. Partial small bowel obstruction/postoperative ileus. Management per surgery. Continue bowel rest, IV hydration, antiemetics and pain control. 2. Paroxysmal atrial fibrillation. Currently in sinus rhythm. Obtain EKG for baseline. Monitor on telemetry. She is off her usual flecainide and oral metoprolol due to NPO status. Start metoprolol 5 mg IV every 6 hours. Additional doses if needed. 3. Pleural and pericardial effusions. Likely reactive from recent sepsis. He do not appear to be clinically significant or increased in size from her recent hospitalization. 4. Anasarca, likely related to recent inflammatory response and hypoalbuminemia with protein calorie malnutrition. Encourage mobilization and monitor. 5. DVT prophylaxis: Sequential compression hose and Lovenox. I wish to thank Dr. Hawk for consulting the hospitalist service on this delightful patient. We will follow with you during the hospitalization. Time-Based Coding :: [TOTAL MINUTES] spent with patient and on the chart (including review of chart, obtaining history, exam, reviewing outside data, placing orders, documenting exam and treatment plan, and counseling patient) on [DATE]. PROFEE Charge Codes Inpatient or Observation consultation: [id number]
[2024-01-16] MEDS: DEXTROSE 5%-0.45% NS 1,000 ML 150 ML IV (17:55)
[2024-01-16] MEDS: SCOPOLAMINE 1 PATCH TOP (17:55)
[2024-01-16] MEDS: METOPROLOL TARTRATE 5 MG/5 ML INJ IV (18:27)
[2024-01-16] MEDS: DEXTROSE 5%-0.45NS W/KCL 20MEQ 1,000 ML 100 MEQ IV (21:25)
[2024-01-17] VITALS (7 sets, daily range): BP systolic 96–109; BP diastolic 49–58; PULSE 66–73; RESP 16–20; TEMP 36.1–36.8; O2SAT 96–99
[2024-01-17] MEDS: METOPROLOL TARTRATE 5 MG/5 ML INJ IV ×4 (00:08→23:28)
[2024-01-17 05:51] LABS: Add Manual Diff / Slide Review NO; Basophils Absolute Auto 0 /uL (0-100); Basophils Percent Auto 0.4 % (0-2); Eosinophils Absolute Auto 100 /uL (0-450); Eosinophils Percent Auto 2.1 % (2-4); Hematocrit 28.7 % (36-46); Hemoglobin 9.6 g/dL (12.0-16.0); Lymphocytes Absolute Auto 1300 /uL (1100-4500); Lymphocytes Percent Auto 18.8 % (25-40); Mean Corpuscular HGB Conc 33.6 % (30-36); Mean Corpuscular Hemoglobin 30.2 PG (26-34); Mean Corpuscular Volume 89.8 fL (80-100); Monocytes Absolute Auto 700 /uL (0-900); Monocytes Percent Auto 10.3 % (3-14); Neutrophils Absolute Auto 4800 /uL (1500-7000); Neutrophils Percent Auto 68.4 % (50-75); Platelet Count 513 X10^3/uL (150-400); Red Cell Distribution Width 13.3 % (11.6-14.8)
[2024-01-17 05:58] LABS: HEMOLYSIS < 15 (0-50)
[2024-01-17 06:04] LABS: Calcium 7.4 mg/dL (8.4-10.2); Carbon Dioxide 26 mmol/L (22-32); Chloride 109 mmol/L (98-107); Estimated Glomerular Filt Rate > 60 mL/min (>60); Glucose 103 mg/dL (70-100); Potassium 3.1 mmol/L (3.4-5.1); Sodium 136 mmol/L (137-145)
[2024-01-17 06:05] LABS: BUN Creatinine Ratio 4.9 (6-22); Blood Urea Nitrogen < 2 mg/dL (7-17)
[2024-01-17 06:12] LABS: NT-proBNP (BNP-Adult 18+) 329 pg/mL (<125)
[2024-01-17] MEDS: POTASSIUM CHLORIDE IN WATER 10 MEQ/100 ML PIGGYBACK 100 MEQ IV ×8 (06:52→23:27)
[2024-01-17] MEDS: PANTOPRAZOLE 40 MG VIAL IV (08:42)
[2024-01-17] MEDS: ENOXAPARIN 40 MG/0.4 ML SYRINGE SUBCUT (08:42)
--- NOTE | 2024-01-17 12:11 | PM.HP.1 ---
History of Present Illness History of Present Illness Date Patient Seen: 01/17/24 Time Patient Seen: 12:11 Chief complaint: post op appendix surgery, N/V/D, weakness Narrative: s/p ileocecectomy for ruptured appendicitis, had post op ileus and now returns with dehydration and diarrhea. CT scan c/w ileus and 3rd spacing of fluid. She also had COVID during her illness. Now nauseated, distended, watery diarrhea. [facility] Medical History UTI (urinary tract infection) Pericardial effusion PAC (premature atrial contraction) PVC's (premature ventricular contractions) Surgical History Status post tubal ligation Status post delivery Status post delivery Status post delivery Status post arthroscopy Family History Father Age: 84 Hypertension Polycystic kidney disease Grandmother Cancer Mother Age: 81 Skin melanoma Stroke Social History household members: spouse and children Smoking Status: Former smoker Tobacco: How many years used: 6 alcohol intake: current substance use type: does not use Meds Home Medications and Allergies Home Medications Medication Instructions Recorded Confirmed Type metoprolol succinate 25 mg 12.5 mg PO DAILY 10/17/22 01/16/24 History tablet,extended release 24 hr triamcinolone acetonide 0.1 % 1 applic topical BID PRN face 10/17/22 01/16/24 Rx topical ointment eczema #15 grams triamcinolone acetonide 0.5 % See Rx Instructions .Route 10/17/22 01/16/24 Rx topical cream .COMPLEX #45 grams flecainide 50 mg tablet 25 mg PO BID 12/18/23 01/16/24 History acetaminophen 500 mg capsule 1,000 mg (2 x 500 mg) PO Q6H PRN 01/14/24 01/16/24 Rx pain #60 caps ibuprofen 200 mg tablet 400 mg (2 x 200 mg) PO Q6H #60 tabs 01/14/24 01/16/24 Rx Lactobacillus acidophilus 250 500 mmu cells PO DAILY 01/16/24 01/16/24 History million cell capsule (Probiotic Acidophilus) Allergies Allergy/AdvReac Type Severity Reaction Status Date / Time Penicillins AdvReac Intermediate Hives Verified 01/16/24 13:46 Review of Systems Review of Systems ROS: Yes All systems reviewed with the patient and are negative except as otherwise documented Exam Vital Signs (past 8 hours): - 01/17/24 07:00 01/17/24 08:00 Temperature 97.4 F L Pulse Rate 71 Respiratory Rate 16 Blood Pressure 108/55 L Pulse Oximetry 99 Oxygen Delivery Method Room Air Oxygen Delivery Method Room Air Oxygen Flow Rate 0 Const General: cooperative and comfortable Nutritional Appearance: thin Orientation: alert, awake and oriented x3 HENMT Head: normocephalic and atraumatic Face and sinus: normal facial exam Eyes General: appearance normal, both eyes and all related structures Sclera: sclerae normal Neck Neck: trachea midline and No JVD Chest Chest: normal inspection of the chest Resp Effort & Inspection: normal respiratory effort and able to speak in complete sentences Cardio Rate: regular rate Rhythm: regular rhythm GI Inspection: distended Palpation: soft, No hernia and No tender Skin General: no rashes or lesions noted and No turgor normal Neuro General: patient alert, patient awake, patient oriented x3 and moves all extremities Cognition: normal cognition Psych Appearance: grossly normal Mental Status: mental status grossly normal Judgment: judgment good Objective Labs 01/17/24 05:30 01/17/24 05:30 Labs: Laboratory Results - last 24 hr 01/16/24 01/17/24 14:07 05:30 WBC 11.2 H 7.0 RBC 4.02 3.20 L Hgb 12.1 9.6 L Hct 36.1 28.7 L MCV 89.8 89.8 MCH 30.0 30.2 MCHC 33.5 33.6 RDW 13.7 13.3 Plt Count 724 H 513 H Neut % (Auto) 83.2 H 68.4 Lymph % (Auto) 9.2 L 18.8 L [place] % (Auto) 6.5 10.3 Eos % (Auto) 0.6 L 2.1 Baso % (Auto) 0.5 0.4 Neut # (Auto) 9300 H 4800 Lymph # (Auto) 1000 L 1300 [place] # (Auto) 700 700 Eos # (Auto) 100 100 Baso # (Auto) 100 0 Sodium 136 L 136 L Potassium 3.2 L 3.1 L Chloride 106 109 H Carbon Dioxide 25 26 BUN 3 L < 2 L Creatinine 0.45 L 0.41 L Estimated GFR > 60 > 60 BUN/Creatinine Ratio 6.7 4.9 L Glucose 107 H 103 H Lactate 1.2 Calcium 8.5 7.4 L Total Bilirubin 0.6 AST 42 H ALT 25 Alkaline Phosphatase 66 NT-Pro-B Natriuret Pep 329 H Total Protein 6.2 L Albumin 3.0 L Globulin 3.2 Albumin/Globulin Ratio 0.9 L Lipase 312 H D Assessment & Plan Assessment & Plan narrative: Clearly a systemic illness has not resolved. No issues with surgical site. Unfortunate diarrhea during her recovery causing dehydration. Plan: Restart diet, continue IV hydration. Send stool for culture. Imodium AD prn. Time-Based Coding :: [TOTAL MINUTES] spent with patient and on the chart (including review of chart, obtaining history, exam, reviewing outside data, placing orders, documenting exam and treatment plan, and counseling patient) on [DATE].
--- NOTE | 2024-01-17 14:05 | CM.DANOTE ---
Initial DCP Assessment Visit Note Reviewed EMR and team rounds for status updates. Met with pt/spouse at bedside to introduce self and role, pt lives independently at baseline with her spouse and family in their own home in [place]. Her spouse will transport her home once she's medically stable for d/c. Payor: Brad Attending: Dr. Hawk PCP: Dr. Ann Gray Pt is a 53 year-old F who was re-admitted from the ED after 2-days at home post-discharge from her last hospitalization. She had been admitted the first time with an acure ruptured appendix and intra abdominal abcess post-appendectomy. She presents now with nausea, vomiting, diarrhea, weakness, and pain. She complains of multiple episodes of watery diarrhea. CT abd/pelvis showed a small bowel ileus. Surgery was consulted, and the plan was made for admission for further surgical eval and tx. She has been on bowel rest, IV fluids, and pain control. Today, she is expressing feeling much improved, and if this continues, she will likely d/c on Thursday or Thursday. DCP will continue to follow and assist with any further evolving needs prior to her d/c home. Discharge Planning/Care Management CM Discharge Assessment Start: 01/17/24 14:02 Freq: Status: Active Protocol: Document 01/17/24 14:03 DPL (Rec: 01/17/24 14:05 DPL [id number]) Discharge Planning Assessment Assigned Circulation Assistant PREMA [place] Advance Directives? No History Provided By Significant Other,Medical Record Has Patient been admitted in last 30 Yes days? Comment 01/05-01/14/24 post appendectomy and abcess I&D Prior Living Arrangements House Household Members spouse,children Type of transporation used prior to Drives own vehicle admit Independent with ADL's Yes Is patient alert and oriented? Yes Caregiver for Another Yes: children Comment No anticipated home d/c needs at this time. Barriers to Discharge No Comment Met w/patient and spouse who report they have what they need at home for patient's recovery. Patient denies need from this CM team, appreciative for the visit. Discharge Plan Home Transportation Arrangement Spouse Referrals Initiated None needed Whiteboard Updated in Patient Room with Yes name and ext. # of Circulation Assistant Review Status In Process Please Provide Date Initial DC 01/17/24 Assessment Was Performed
[2024-01-17 15:18] LABS: Clostridium Difficile Tox PCR Negative for C. diff (Negative)
[2024-01-17 15:31] LABS: HEMOLYSIS < 15 (0-50); Potassium 3.1 mmol/L (3.4-5.1)
[2024-01-17] MEDS: DEXTROSE 5%-0.45NS W/KCL 20MEQ 1,000 ML 100 MEQ IV (17:01)
[2024-01-17 19:49] LABS: Magnesium 1.8 mg/dL (1.6-2.3)
[2024-01-17] MEDS: FLECAINIDE 100 MG TABLET 25 MG PO (20:18)
[2024-01-18] VITALS (7 sets, daily range): BP systolic 100–110; BP diastolic 49–61; PULSE 68–84; RESP 16–18; TEMP 36.2–36.9; O2SAT 96–100
[2024-01-18 05:33] LABS: Calcium 8.1 mg/dL (8.4-10.2); Carbon Dioxide 28 mmol/L (22-32); Chloride 110 mmol/L (98-107); Estimated Glomerular Filt Rate > 60 mL/min (>60); Glucose 99 mg/dL (70-100); HEMOLYSIS < 15 (0-50); Potassium 3.7 mmol/L (3.4-5.1); Sodium 136 mmol/L (137-145)
[2024-01-18 05:34] LABS: BUN Creatinine Ratio 4.5 (6-22); Blood Urea Nitrogen < 2 mg/dL (7-17)
[2024-01-18] MEDS: METOPROLOL TARTRATE 5 MG/5 ML INJ IV (06:18)
[2024-01-18] MEDS: PANTOPRAZOLE DR 20 MG TABLET PO (08:12)
[2024-01-18] MEDS: FLECAINIDE 100 MG TABLET 25 MG PO (08:12)
[2024-01-18] MEDS: LACTOBACILLUS ACIDOPHILUS TABLET 1 EACH PO (08:13)
[2024-01-18] MEDS: DEXTROSE 5%-0.45NS W/KCL 20MEQ 1,000 ML 100 MEQ IV (08:15)
[2024-01-18] MEDS: ENOXAPARIN 40 MG/0.4 ML SYRINGE SUBCUT (08:16)
--- NOTE | 2024-01-18 11:13 | PC.NURSE ---
Assess- Patient is alert and oriented x4, she is up in the room independently or with her s.o. help. She denies pain and ml incision is cdi. She denies nausea and states that she is feeling better today. Tolerating a general diet today.
--- NOTE | 2024-01-18 13:40 | PM.PN.1 ---
Subjective Subjective Date Patient Seen: 01/18/24 Time Patient Seen: 13:41 Interval history: Having fewer loose stools, has not taken the Imodium. Is hungry. Exam Vital Signs (past 8 hours): - 01/18/24 06:19 01/18/24 08:00 01/18/24 12:00 Temperature 97.6 F 98.1 F Pulse Rate 71 68 77 Respiratory Rate 16 16 Blood Pressure 103/61 100/55 L 110/61 Pulse Oximetry 98 99 Oxygen Flow Rate 0 0 Oxygen Delivery Method Room Air Oxygen Flow Rate 0 Narrative Exam Narrative: abdomen is less distended. left sided tenderness much improved. Objective Labs 01/17/24 05:30 01/18/24 05:02 Labs: Laboratory Results - last 24 hr 01/17/24 01/17/24 01/18/24 14:00 15:15 05:02 Sodium 136 L Potassium 3.1 L 3.7 Chloride 110 H Carbon Dioxide 28 BUN < 2 L Creatinine 0.44 L Estimated GFR > 60 BUN/Creatinine Ratio 4.5 L Glucose 99 Calcium 8.1 L Magnesium 1.8 C. difficile Tox (PCR) Negative for c. diff [facility] Medical History UTI (urinary tract infection) Pericardial effusion PAC (premature atrial contraction) PVC's (premature ventricular contractions) Surgical History Status post tubal ligation Status post delivery Status post delivery Status post delivery Status post arthroscopy Family History Father Age: 84 Hypertension Polycystic kidney disease Grandmother Cancer Mother Age: 81 Skin melanoma Stroke Social History household members: spouse and children Smoking Status: Former smoker Tobacco: How many years used: 6 alcohol intake: current substance use type: does not use Assessment & Plan Assessment & Plan narrative: s/p ileocecectomy with most likely a viral gastroenteritis on top of recovery from surgery Plan: Stop IVF, regular diet. Home tomorrow possibly. Time-Based Coding :: 20 minutes spent with patient and on the chart (including review of chart, obtaining history, exam, reviewing outside data, placing orders, documenting exam and treatment plan, and counseling patient) on 01/18/2024.
--- NOTE | 2024-01-18 16:24 | DIET.CONS2 ---
Dietary Inpatient Consultation Note Admission Date: 01/16/2024 15:55 53 y F re-admitted for N/V/D, weakness and pain s/p ileocecetomy. Nutrition screened through unit host reporting pt having questions about consuming fiber. Met w/ pt at bedside. Answered nutrition related questions regarding appropriate fiber and protein intake. Reviewed sources. Provided handout of fiber sources. Encouraged sufficient energy/protein intake. Will monitor po intakes. F/u PRN. Diet: 01/17/24 Dinner General (Regular) Diet Diet Modifications: high protein, high fiber Food Texture: Level 7 - Regular Liquid Consistency: Level 0 - Thin Nutrition Percent Meal Consumed 50% 01/18/24 13:08 Percent Meal Consumed 50% 01/17/24 18:00 Percent Meal Consumed 50% 01/17/24 16:00 Electronically Signed by: Alexandrea Gale 01/18/24 16:24 Clinical Dietitian [address] [id number]
[2024-01-18] MEDS: SODIUM CHLORIDE 0.9% FLUSH 10 ML IV (21:05)
[2024-01-18] MEDS: FLECAINIDE 50 MG PO (21:07)
[2024-01-19 03:16] VITALS: BP 110/62; PULSE 71; RESP 18; TEMP 36.5; O2SAT 97
[2024-01-19 07:00] VITALS: BP 104/55; PULSE 89; RESP 12; TEMP 36.6; O2SAT 99
[2024-01-19] MEDS: PANTOPRAZOLE DR 20 MG TABLET PO (07:01)
[2024-01-19 09:08] VITALS: BP 104/55; PULSE 89
[2024-01-19] MEDS: LACTOBACILLUS ACIDOPHILUS TABLET 1 EACH PO (09:08)
[2024-01-19] MEDS: METOPROLOL ER 25 MG TABLET 12.5 MG PO (09:08)
[2024-01-19] MEDS: SODIUM CHLORIDE 0.9% FLUSH 10 ML IV (09:09)
[2024-01-19] MEDS: FLECAINIDE 50 MG PO (09:09)
[2024-01-19] MEDS: ENOXAPARIN 40 MG/0.4 ML SYRINGE SUBCUT (09:09)
[2024-01-19 09:40] VITALS: BP 102/44; PULSE 74
[2024-01-19 11:00] VITALS: BP 92/55; PULSE 87; RESP 12; TEMP 36.9; O2SAT 98
--- NOTE | 2024-01-19 14:06 | PC.NURSE ---
Pt verbalized understanding of D/C instructions, what to watch out for, when to follow up with surgeon's office for staple removal.
[2024-01-19 15:05] VITALS: BP 106/58; PULSE 84; RESP 17; TEMP 36.6; O2SAT 97
--- NOTE | 2024-01-21 17:14 | P.DS_ITS ---
History of Present Illness History of Present Illness Date Patient Seen: 01/19/24 Time Patient Seen: 17:14 Chief complaint: post op appendix surgery, N/V/D, weakness Narrative: 53-year-old woman who underwent a ileocecectomy last week for complicated appendicitis with necrosis of cecum. She had a prolonged hospitalization with postoperative ileus. At the time of her previous discharge she was passing flatus and tolerating some oral nutrition. She re-presented to the hospital with nausea vomiting and diarrhea. Discharge Providers Provider Date of admission: 01/16/24 15:55 Discharge Date: 01/19/24 Primary care physician: Ann Gray DO Consults: 01/16/24 15:50 Consult to Physician Routine Comment: Consulting Provider: Josh Johnson V Reason for consultation: Afib, Has provider been notified: Yes Discharge provider: Vlad Kim MD Summary Hospital Course Discharge Diagnosis: Postoperative ileus Hospital Course: On admission afebrile vital signs within normal limits CT abdomen pelvis demonstrates dilated loops of small bowel but no intra-abdominal abscess or devon bowel obstruction. They received IV fluid resuscitation. Her ileus spontaneously resolved. At discharge she is tolerant of a regular diet having bowel movements and flatus, feels markedly improved. Exam Vital Signs (past 8 hours): Oxygen Delivery Method Room Air Oxygen Flow Rate 0 Narrative Exam Narrative: General adult woman alert oriented no acute distress Abdomen soft compressible. Midline incision clean dry intact with gela Objective Labs 01/17/24 05:30 01/18/24 05:02 [facility] Medical History UTI (urinary tract infection) Pericardial effusion PAC (premature atrial contraction) PVC's (premature ventricular contractions) Surgical History Status post tubal ligation Status post delivery Status post delivery Status post delivery Status post arthroscopy Family History Father Age: 84 Hypertension Polycystic kidney disease Grandmother Cancer Mother Age: 81 Skin melanoma Stroke Social History household members: spouse and children Smoking Status: Former smoker Tobacco: How many years used: 6 alcohol intake: current substance use type: does not use Discharge Plan Discharge Plan Patient Disposition: Home Provider Discharge Comment: -follow up [facility] January 20 for staple removal -return to the emergency department or contact provider for worsening abdominal pain, nausea/vomiting, fever greater than 101.5 -no lifting greater than 10 lb x3 weeks Discharge orders & Medications Prescriptions: Continued metoprolol succinate 25 mg tablet extended release 24 hr 12.5 mg PO DAILY triamcinolone acetonide 0.5 % cream See Rx Instructions .ROUTE .COMPLEX Qty: 45 0RF Dose Instruction: APPLY TOPICALLY TWICE DAILY Rx Instructions: APPLY TOPICALLY TWICE DAILY triamcinolone acetonide 0.1 % ointment 1 applic topical BID PRN (Reason: face eczema) Qty: 15 1RF Rx Instructions: use twice a day for 3-7 days then hold for at least 7 days, repeat if needed flecainide 50 mg tablet 25 mg PO BID acetaminophen 500 mg capsule 1,000 mg PO Q6H PRN (Reason: pain) Qty: 60 0RF ibuprofen 200 mg tablet 400 mg PO Q6H Qty: 60 0RF Probiotic Acidophilus 250 million cell Capsule 500 mmu cells PO DAILY Medication counseling provided by Pharmacist: Yes Follow up/Referrals: Vlad Kim MD [Physician] - Diet/Activity/Treatments Diet: Diet as Tolerated Skin/Wound/Dressing Care Report to your healthcare provider any signs of infection, such as:: increased pain Visit Report/Discharge Packet Instructions: DI for Ileus Stand Alone Forms: Patient Portal/API, Stroke Signs & Symptoms Discharge Data Primary Care Provider: Ann Gray
--- NOTE | 2024-02-09 15:10 | PC.NURSE ---
late entry 01/15- 1999 per RN NS IV fluids DC'd
== END 2024-01-19 15:16 | disposition home or self-care (01) | DRG 394 ==
LOC: ED 15:55 → AC 15:56
PROVIDERS: Admitting Provider Surgery; Emergency Provider Emergency Medicine; PCP Family Medicine; Referring Provider Emergency Medicine; Visit Provider Surgery
DX: K91.89 Other postprocedural complications and disorders of digestive system (principal); I31.39 Other pericardial effusion (noninflammatory); J90 Pleural effusion, not elsewhere classified; K56.7 Ileus, unspecified; E86.0 Dehydration; I48.0 Paroxysmal atrial fibrillation; R60.1 Generalized edema; Z90.49 Acquired absence of other specified parts of digestive tract; Z87.891 Personal history of nicotine dependence
CPT/HCPCS: 36415; 74177; 80048; 80053; 83605; 83690; 83735; 83880; 84132; 85025; 87040; 87493; 93010; 96361; 96374; 99231; 99232; 99238; 99284; 99285; J1650; J2470; Q9967

== ENCOUNTER → 2024-06-06 11:10 | Outpatient (CLI) | payer BC, SELFPAY ==
[2024-01-16 16:17] VITALS: BMI 26.6
[2024-06-06 12:15] LABS: Hemoglobin A1C% w Est Avg Glu 5.3 % (4.0-6.0)
[2024-06-06 12:21] LABS: Cholesterol 195 mg/dL (140-199); HDL Cholesterol 88 mg/dL (40-60); LDL Cholesterol Calculated 92 mg/dL (<100); Triglycerides 74 mg/dL (35-150)
[2024-06-06 12:34] LABS: Vitamin D 25 Hydroxy (D3) 24.9 ng/mL (30.0-100.0)
[2024-06-06 12:55] LABS: TSH w/ Reflex to FT4 0.79 uIU/mL (0.47-4.68)
[2024-06-06 12:56] LABS: Ferritin 18 ng/mL (11-264)
[2024-06-06 13:14] LABS: Vitamin B12 286 pg/mL (239-931)
[2024-06-13 21:07] LABS: Magnesium, RBC 4.5 mg/dL (3.7-7.0)
== END ==
PROVIDERS: PCP Family Medicine; Referring Provider Family Medicine; Visit Provider Family Medicine
DX: I31.39 Other pericardial effusion (noninflammatory) (principal); I49.1 Atrial premature depolarization; I49.3 Ventricular premature depolarization; K76.89 Other specified diseases of liver; I48.91 Unspecified atrial fibrillation; E55.9 Vitamin D deficiency, unspecified; R53.83 Other fatigue; Z86.2 Personal history of diseases of the blood and blood-forming organs and certain disorders involving the immune mechanism
CPT/HCPCS: 36415; 80061; 82306; 82607; 82728; 83036; 83735; 84443

== ENCOUNTER → 2024-06-07 14:11 | Outpatient (CLI) | payer BC, SELFPAY ==
[2024-01-16 16:17] VITALS: BMI 26.6
[2024-06-09 18:09] LABS: Fecal Immunochemical Test Positive (Negative)
== END ==
LOC: LAB 14:12
PROVIDERS: PCP Family Medicine; Referring Provider Family Medicine; Visit Provider Family Medicine
DX: Z12.11 Encounter for screening for malignant neoplasm of colon (principal)
CPT/HCPCS: 82274